=== PATIENT | male | born 1955 | race Hispanic/Latino ===

== ENCOUNTER 2016-12-15 16:43 | Outpatient (CLI) | payer BC ==
[2016-12-15 20:09] LABS: Anion Gap 12 mmol/L (10-20); BUN (Urea Nitrogen) 14 mg/dL (8.4-25.7); Calc. Creatinine Clearance 0 mL/min (70-130); Calcium 9.6 mg/dL (7.8-10.44); Carbon Dioxide 27 mmol/L (22-29); Chloride 105 mmol/L (98-107); Estimated GFR-MDRD Greater than 90
[2016-12-15 20:10] LABS: Hematocrit 37.6 % (42.0-52.0); Mean Platelet Volume 10.7 fL (7.4-10.4); Red Blood Cell (RBC) Count 4.01 mill/uL (4.70-6.10); White Blood Cell (WBC) Count 5.6 thou/uL (4.8-10.8)
[2016-12-15 20:13] LABS: PTT 32.2 SEC (22.9-36.1); Prothrombin Time 13.3 SEC (12.0-14.7)
== END 2016-12-15 16:44 | disposition home or self-care (01) ==
LOC: LABBT 16:43
PROVIDERS: ATTEND Urology
DX: Z01.818 Encounter for other preprocedural examination (principal); N28.9 Disorder of kidney and ureter, unspecified; Z87.440 Personal history of urinary (tract) infections
CPT/HCPCS: 80048; 81001; 85027; 85610; 85730; 87086; 88121; G0103

== ENCOUNTER 2016-12-24 06:18 | Day surgery (SDC) | payer BC ==
[2016-12-15 16:50] VITALS: BMI 29.3
[2016-12-24] MEDS ORDERED: Iothalamate Meglumine 60% 50 ML VIAL FS ONE (07:16)
[2016-12-24] MEDS ORDERED: Levofloxacin 500 mg/D5W 100 ml Premix Bag ONE (07:22)
[2016-12-24] MEDS ORDERED: cefTRIAXone\\ROCEPHIN 2 GM in Sodium Chloride 0.9% 100 ML IVPB SCH (07:30)
[2016-12-24] MEDS ORDERED: Midazolam HCl 2 mg/2 ml Vial ONE (07:57)
[2016-12-24] MEDS ORDERED: Fentanyl 100 MCG/2 ML VIAL ONE ×2 (07:57→09:01)
[2016-12-24] MEDS ORDERED: Promethazine HCl 25 MG/ML VIAL ONE (09:01)
[2016-12-24] MEDS ORDERED: Glycopyrrolate 0.2 MG/ML 5 ML SYRINGE ONE (09:14)
[2016-12-24] MEDS ORDERED: Ondansetron HCl/PF 4 MG/2 ML Vial ONE (09:14)
[2016-12-24] MEDS ORDERED: Propofol 200 MG/20 ML VIAL ONE (09:14)
[2016-12-24] MEDS ORDERED: PHENYLEPHRINE-NS 100 MCG/ML 10 ML SYRINGE ONE (09:14)
[2016-12-24] MEDS ORDERED: ePHEDrine/0.9% NaCl/PF SYRINGE 50 mg/10 ml ONE (09:14)
[2016-12-24] MEDS ORDERED: Lidocaine 1% PF 5 ML VIAL ONE (09:14)
[2016-12-24] MEDS ORDERED: Phenazopyridine HCl 97.5 MG TABLET ONE (10:08)
--- NOTE | 2016-12-24 10:21 | RAD ---
RETROGRADE URETEROGRAM INTRAOPERATIVE FLUOROSCOPY: History: Ureteral mass. FINDINGS\E\IMPRESSION: Intraoperative fluoroscopy was provided for retrograde study as performed by Dr. Gibson. Multip le images show contrast opacification of a mildly distended right renal collecting system and ureter . No focal filling defects are reliably demonstrated. POS: SO
--- NOTE | 2016-12-24 11:04 | OP ---
DATE OF PROCEDURE: 12/24/2016 PREOPERATIVE DIAGNOSES: 1. A 61-year-old male with history of prostatitis. 2. Rule out right ureteral mass. 3. History of hemorrhagic cystitis/prostatitis. POSTOPERATIVE DIAGNOSES: 1. A 61-year-old male with history of prostatitis. 2. Rule out right ureteral mass. 3. History of hemorrhagic cystitis/prostatitis. PROCEDURES: Cystoscopy, right retrograde pyelogram, meatal dilatation with Doyle sounds. SURGEON: Ruthy Gibson D.O. ANESTHESIA: General. SPECIMEN: None. INTRAOPERATIVE FINDINGS: 1. Mild meatal stenosis, caliber approximately 18 Cymro. 2. Wide caliber nonobstructing bulbar stricture, caliber, approximately 18-20 Cymro. 3. Bilobar hyperplasia moderately obstructing with no evidence of intravesical median lobe. 4. No evidence of bladder mass. 5. UO is in normal orthotopic position. 6. Right Hutch periureteral diverticulum with no evidence of diverticular mass. 7. Retrograde pyelogram demonstrating focal ectasia, however, nonobstructing with prompt excretion of contrast. 8. Recent PSA unremarkable 1.22. 9. Prior cytology FISH voided negative. INDICATIONS FOR THE PROCEDURE AND HISTORY: Mr. Vo is a 61-year-old male self-referred for evaluation of history of UTI. Patient was admitted, seen by Urology loans consultant, diagnosed with hemorrhagic cystitis, prostatitis. The patient had symptomatic prostatitis. He does have exacerbation of urinary frequency and urgency as he tends to binge drink 12 packs of beer on weekends. Denied history of urinary retention. I did review his chart demonstrating some prominence of the right distal ureter in the prior imaging. Repeat cystoscopy demonstrated possible mucosal prominence of the distal ureter, advised regarding ureteroscopy, rule out ureteral mass. A voided FISH cytology was obtained which demonstrated no evidence of abnormality, recent PSA is 1.22 with unremarkable GINI, urine culture negative. The patient and family were advised regarding risks and complications and indications including, but not limited to , bleeding, pain, infection, sepsis, stricture formation, injury to adjacent organs such as urethra, bladder, ureter reviewed. All questions were answered to their satisfaction, they desired to proceed. DESCRIPTION OF THE PROCEDURE: After an informed consent is signed, the patient is taken to the operating room, placed in a dorsal lithotomy position with the genital area prepped and draped in the usual surgical sterile fashion. A 21- Cymro cystoscope was attempted to be passed; however, there still was some resistance at the meatus. Therefore, we used Frederick sounds to dilate the meatus uneventfully from 18 Cymro to 26 Cymro with ease. We subsequently passed a cystoscope which demonstrated some evidence of urethral mucosal fibrosis. However, no obstructing stricture was appreciated in the penile urethra. At the level of the bulbar urethra, was an annular stricture and nonobstructing wide caliber. I was able to negotiate a 21-Cymro cystoscope without difficulty proximal to this. We surveyed the prostatic urethra demonstrated bilobar coapting lateral lobes moderately obstructing with no evidence of intravesical median lobe. The bladder was entered without difficulty. There was no evidence of bladder mass. There was bilateral orthotopic position of the ureters, clear efflux of urine was noted bilaterally. Inspection of the bladder with a 30 and a 70-degree lens demonstrated the ureteral mass seen on CT scan is consistent with a right periureteral, Hutch diverticulum. This had a wide mouth approximately 20 Cymro. I was able to pass my scope into the diverticulum without difficulty with no evidence of diverticular lesion or stone. The hiatus of the intramural ureter can be seen in the Hutch diverticulum. The open-ended catheter 5 Cymro was intubated with a 1:1 diluted contrast opacifying the right ureter with no evidence of filling defect. There is some focal ectasia proximal to the Hutch diverticulum; however, this is nonobstructing with no evidence of filling defect or hydronephrosis. Prompt excretion of contrast was noted bilaterally. On fluoroscopy, some of the contrast effluxing did traverse the Hutch diverticulum from the intravesical component, the picture is somewhat vague; however, endoscopically, there is a Hutch diverticulum with no lesion, no filling defect appreciated. As there was no concern about a ureteral mass, we surveyed the bladder again which demonstrated no lesions. After the scope was removed, I was able to pass a 20 Cymro catheter in and out without any difficulty. Therefore, a Tobias catheter was not left in situ nor the urethral stricture nonobstructing treated at this time. The patient will follow up with me in few weeks to reassess his voiding parameters. I will initiate Flomax 0.4 mg one p.o. daily and will monitor his voiding symptoms. Options of TURP will be discussed with patient at a later date. If TURP is planned, may need his bulbar urethral stricture treated to accommodate resectoscope. Patient discharged with ciprofloxacin for a course of 3 days, AZO over the counter, Flomax prescription provided 0.4 mg one p.o. day #3 with 3 refills. The patient will follow up in the next month for postop. MTDD
== END 2016-12-24 11:50 | disposition home or self-care (01) ==
LOC: SDC 06:18
PROVIDERS: ATTEND Urology
PROC: 0T7D8DZ Dilation of Urethra with Intraluminal Device, Via Natural or Artificial Opening Endoscopic (ICD-10-PCS; principal; 2016-12-24)
DX: N41.8 Other inflammatory diseases of prostate (principal); N36.8 Other specified disorders of urethra; I77.811 Abdominal aortic ectasia; E78.00 Pure hypercholesterolemia, unspecified; K21.9 Gastro-esophageal reflux disease without esophagitis; E11.9 Type 2 diabetes mellitus without complications; I25.10 Atherosclerotic heart disease of native coronary artery without angina pectoris; Z88.8 Allergy status to other drugs, medicaments and biological substances; Z79.82 Long term (current) use of aspirin; Z79.84 Long term (current) use of oral hypoglycemic drugs; Z79.899 Other long term (current) drug therapy; Z90.49 Acquired absence of other specified parts of digestive tract; Z95.5 Presence of coronary angioplasty implant and graft; Z87.440 Personal history of urinary (tract) infections; Z83.3 Family history of diabetes mellitus; Z82.49 Family history of ischemic heart disease and other diseases of the circulatory system; Z80.9 Family history of malignant neoplasm, unspecified; Z82.3 Family history of stroke
CPT/HCPCS: 74420; C1758; C1769; J0696; J1956; J2001; J2250; J2405; J2550; J2704; J3010; J7050; Q9961

== ENCOUNTER 2017-02-25 09:14 | Outpatient (CLI) | payer BC ==
[2017-02-25 11:45] LABS: Mean Platelet Volume 10.8 fL (7.4-10.4); Red Blood Cell (RBC) Count 4.34 mill/uL (4.70-6.10); White Blood Cell (WBC) Count 5.6 thou/uL (4.8-10.8)
[2017-02-25 12:03] LABS: Anion Gap 11 mmol/L (10-20); BUN (Urea Nitrogen) 11 mg/dL (8.4-25.7); Calc. Creatinine Clearance 0 mL/min (70-130); Calcium 9.4 mg/dL (7.8-10.44); Carbon Dioxide 23 mmol/L (23-31); Chloride 107 mmol/L (98-107); Estimated GFR-MDRD Greater than 90
== END 2017-02-25 09:15 | disposition home or self-care (01) ==
LOC: LABBT 09:14
PROVIDERS: ATTEND Neurological Surgery
DX: Z01.818 Encounter for other preprocedural examination (principal); M54.16 Radiculopathy, lumbar region
CPT/HCPCS: 80048; 85027; 93005; 93010

== ENCOUNTER 2017-03-06 06:23 | Day surgery (SDC) | payer BC ==
[2017-02-25 09:32] VITALS: BMI 27.7
--- NOTE | 2017-03-05 15:39 | HP ---
HISTORY OF PRESENT ILLNESS: Mr. Vo is referred to us by Dr. Jaffe for evaluation of right-sided L5 radiculopathy that has been treated well with epidural steroid injections that only short lived. MRI from [facility] reveals severe foraminal stenosis at L5 to the left that would fit his sympt oms. PAST MEDICAL HISTORY: Hyperlipidemia, hypertension, reflux, diabetes, coronary arterial disease, sma ll-intestinal tumor, and bowel obstruction. ALLERGIES: LISINOPRIL and LOSARTAN. PAST SURGICAL HISTORY: Bowel resection, cholecystectomy, and cardiac stents. PHYSICAL EXAMINATION: Patient is alert and oriented x3. Gait is antalgic. Lower extremity motor ex am is normal. ASSESSMENT: Lumbar radiculopathy. PLAN: Dr. Klein met with the patient, reviewed imaging, ultimately advocated for left L5 facetectomy . He explained to the patient the risks, benefits, and alternatives to the procedure. The patient e xpressed understanding and would like to move forward with surgery as discussed. I do believe the pa tient is mentally competent and capable of making medical decisions for himself. We will move forwar d with surgery as planned. This is Darren Mcgovern PA-C, dictating for Dr. Klein.
[2017-03-06] MEDS ORDERED: CEFAZOLIN/Water 2 GM/20 ML SYRINGE ONE ×2 (07:12→13:47)
[2017-03-06] MEDS ORDERED: Scopolamine 1.5 mg/72 hour Patch ONE (07:49)
[2017-03-06] MEDS ORDERED: Morphine 4 MG/ML VIAL ONE (07:52)
[2017-03-06] MEDS ORDERED: Bupivacaine/Epinephrine 0.25% 30 ML VIAL ONE ×2 (08:27→10:13)
[2017-03-06] MEDS ORDERED: Thrombin 5000 UNITS/5 ML VIAL ONE (08:27)
[2017-03-06] MEDS ORDERED: Midazolam HCl 2 mg/2 ml Vial ONE (09:08)
[2017-03-06] MEDS ORDERED: Fentanyl 100 MCG/2 ML VIAL ONE ×2 (09:08→11:07)
[2017-03-06] MEDS ORDERED: Promethazine HCl 25 MG/ML VIAL ONE (09:08)
[2017-03-06] MEDS ORDERED: HYDROmorphone 0.5 MG/0.5 ML SYRINGE ONE (09:08)
--- NOTE | 2017-03-06 10:31 | OP ---
DATE OF PROCEDURE: 03/06/2017 SURGEON: Harvey Klein M.D. HIGH LIFT OPERATOR: Darren Mcgovern PA-C INDICATION: Pain. DIAGNOSIS: Lumbar radiculopathy. PROCEDURE: Left L5 facetectomy, foraminotomy. ANESTHESIA: General. TECHNIQUE: The patient was brought into the operating room and placed under general anesthesia. He was flipped from a supine to a prone position on the operating room table. A linear incision was kati nned over the L5 segment on the left. After prepping and draping and after an appropriate operative pause, the incision was created. The soft tissues were swept away from midline on the left. Self-re taining retractors placed in the wound for optimal exposure. After confirming the appropriate level with C-arm fluoroscopy, a high-speed cutting drill bit as well as 2, 3 and 4 mm Kerrisons were used t o perform a laminectomy and facetectomy on the left side. The L5 pedicle and S1 pedicles were identi fied on the left. The exiting L5 nerve root was identified on the left. A generous foraminotomy was performed until there was complete unroofing of the left L5 pedicle. There was a small synovial cys t present within the foramen which was also removed. After complete decompression, the wound was irr igated. Hemostasis was maintained throughout. The wound was then closed in anatomic layers and a pr essure dressing was applied. There were no known procedural complications.
[2017-03-06] MEDS ORDERED: Tamsulosin HCl 0.4 MG CAP ONE (10:59)
[2017-03-06] MEDS ORDERED: HYDROcodone/Acetaminophen 5/325 mg Tablet ONE (12:44)
[2017-03-06] MEDS ORDERED: Calcium Chloride 1 GM/10 ML Abboject SYRINGE ONE (15:01)
[2017-03-06] MEDS ORDERED: Ondansetron HCl/PF 4 MG/2 ML Vial ONE (15:01)
[2017-03-06] MEDS ORDERED: Glycopyrrolate 0.2 MG/ML 5 ML SYRINGE ONE (15:01)
[2017-03-06] MEDS ORDERED: ePHEDrine/0.9% NaCl/PF SYRINGE 50 mg/10 ml ONE (15:01)
[2017-03-06] MEDS ORDERED: Propofol 200 MG/20 ML VIAL ONE (15:01)
[2017-03-06] MEDS ORDERED: Lidocaine 1% PF 5 ML VIAL ONE (15:01)
[2017-03-06] MEDS ORDERED: PHENYLEPHRINE-NS 100 MCG/ML 10 ML SYRINGE ONE (15:01)
[2017-03-06] MEDS ORDERED: Ketorolac Tromethamine 30 MG/ML VIAL ONE (15:01)
[2017-03-06] MEDS ORDERED: Dexamethasone 20 MG/5 ML VIAL ONE (15:01)
== END 2017-03-06 14:25 ==
LOC: SDC 06:23
PROVIDERS: ATTEND Neurological Surgery
PROC: 01NB0ZZ Release Lumbar Nerve, Open Approach (ICD-10-PCS; principal; 2017-03-06)
DX: M54.16 Radiculopathy, lumbar region (principal); E78.5 Hyperlipidemia, unspecified; I10 Essential (primary) hypertension; K21.9 Gastro-esophageal reflux disease without esophagitis; E11.9 Type 2 diabetes mellitus without complications; I25.10 Atherosclerotic heart disease of native coronary artery without angina pectoris; Z79.82 Long term (current) use of aspirin; Z79.84 Long term (current) use of oral hypoglycemic drugs; Z79.02 Long term (current) use of antithrombotics/antiplatelets; Z79.899 Other long term (current) drug therapy; Z88.8 Allergy status to other drugs, medicaments and biological substances; Z95.818 Presence of other cardiac implants and grafts; Z90.49 Acquired absence of other specified parts of digestive tract; Z98.890 Other specified postprocedural states
CPT/HCPCS: 76000; 96374; J1100; J1170; J1885; J2001; J2250; J2270; J2405; J2550; J2704; J3010

== ENCOUNTER 2018-01-04 13:29 | Outpatient (CLI) | payer BC ==
--- NOTE | 2018-01-04 15:43 | ULT ---
RENAL ULTRASOUND: HISTORY: Renal cyst. FINDINGS: Multiple longitudinal and transverse images of the kidneys and urinary bladder were obtained using a Multihertz curvilinear transducer. Real-time color flow images were used to evaluate the kidneys and bladder. Images demonstrate both kidneys to be of normal contour, axis, and size with the right kidney measuri ng 11.7 and the left kidney 12.0 cm from [id number]. There is a small cyst in the upper pole of th e left kidney measuring 3.0 x 1.9 x 2.3 cm. There is also an approximately 9 x 6 x 8 mm area of calcification in the upper pool of the left kidne y possibly representing a left renal calculus. No evidence of hydroureteral nephrosis seen. No evid ence of obstructing calculi seen. The urinary bladder is unremarkable with no evidence of masses. The bladder has 3D measurements of 7 .6 x 6.9 x 5.7 cm giving a 3D volume of 156 mL. IMPRESSION: Small upper pole left renal area of calcification and upper pole cyst of the left kidney. POS: SO
== END 2018-01-04 13:30 | disposition home or self-care (01) ==
LOC: BICULT 13:29
PROVIDERS: ATTEND Urology
DX: N28.1 Cyst of kidney, acquired (principal)
CPT/HCPCS: 76770

== ENCOUNTER 2018-01-20 12:35 | Outpatient (CLI) | payer BC ==
--- NOTE | 2018-01-20 14:48 | CT ---
CT OF THE ABDOMEN AND PELVIS WITHOUT IV CONTRAST: Indication: History of renal calculus. FINDINGS: There is a 2.2 cm exophytic cyst involving the superior pole of the left kidney. No definite ureteral calculus or hydronephrosis is noted. There is a suspected diverticulum involving the distal right ur eter on Image 75 of Series 2 measuring 1.7 cm. This is better seen on a CT examination dated 12-10-16. This appears similar to the comparison study. There is a mild amount of retained stool within the colon. There is a normal appendix in the right lo wer quadrant. Small bowel is of normal caliber. There is calcified granuloma in the liver and spleen. The gallbladder is surgically absent. There are fat containing inguinal hernias bilaterally. There is scattered degenerative and osteoarthritic deal ge. No definite acute osseous abnormality is evident. IMPRESSION: 1. No renal or ureteral calculus. 2. No hydronephrosis seen. 3. Stable left renal cysts. 4. Findings of prior granulomatous disease. 5. Mild amount of retained stool within the colon. 6. Stable diverticulum involving the distal right ureter. POS: [facility]
== END 2018-01-20 12:36 | disposition home or self-care (01) ==
LOC: CT 12:35
PROVIDERS: ATTEND Urology
DX: N20.0 Calculus of kidney (principal); N28.1 Cyst of kidney, acquired; N28.89 Other specified disorders of kidney and ureter; K59.00 Constipation, unspecified; L92.9 Granulomatous disorder of the skin and subcutaneous tissue, unspecified
CPT/HCPCS: 74176; 80048; 81001; 85027; 85610; 85730; 86850; 86900; 86901; 87086; 93005; 93010

== ENCOUNTER 2018-02-03 06:39 | Observation (INO) | payer BC ==
[2018-02-03] MEDS ORDERED: Levofloxacin 500 mg/D5W 100 ml Premix Bag ONE (07:34)
[2018-02-03] MEDS ORDERED: Piperacillin/Tazobactam 3.375 GM in Sodium Chloride 0.9% 100 ML IVPB SCH (07:45)
[2018-02-03] MEDS ORDERED: Scopolamine 1.5 mg/72 hour Patch ONE (09:12)
[2018-02-03] MEDS ORDERED: Midazolam HCl 2 mg/2 ml Vial ONE (09:14)
[2018-02-03] MEDS ORDERED: Fentanyl 250 MCG/5 ML VIAL ONE (09:30)
[2018-02-03] MEDS ORDERED: Dextrose 5% in Water 1,000 ML IV PRN (11:39)
[2018-02-03] MEDS ORDERED: Dextrose 50% Abboject 50 ML SYRINGE SLOW IVP PRN (11:39)
[2018-02-03] MEDS ORDERED: HYDROcodone/Acetaminophen 5/325 mg Tablet PO PRN ×2 (11:39)
[2018-02-03] MEDS ORDERED: Mag-Al 1200 mg/1200 mg/30 ML UDCUP PO PRN (11:39)
[2018-02-03] MEDS ORDERED: hydrALAZINE 20 MG/ML VIAL SLOW IVP PRN ×2 (11:39)
[2018-02-03] MEDS ORDERED: Zolpidem Tartrate 5 MG TAB PO PRN (11:39)
[2018-02-03] MEDS ORDERED: Ondansetron PF 4 MG/2 ML Vial IVP PRN (11:39)
[2018-02-03] MEDS ORDERED: diphenhydrAMINE 50 MG/ML VIAL IVP PRN (11:39)
[2018-02-03] MEDS ORDERED: Oxybutynin 5 MG TAB PO PRN (11:39)
[2018-02-03] MEDS ORDERED: Baclofen 10 MG TAB PO PRN (11:45)
[2018-02-03] MEDS ORDERED: Acetaminophen 500 MG TAB PO PRN (11:45)
[2018-02-03] MEDS ORDERED: cefTRIAXone\\ROCEPHIN 1 GM in Sodium Chloride 0.9% 100 ML IVPB SCH (12:00)
--- NOTE | 2018-02-03 12:26 | OP ---
DATE OF SERVICE: 02/03/2018 PREOPERATIVE DIAGNOSES: 1. A 63-year-old male with history of BPH. 2. History of prostatitis. 3. History of right periureteral Hutch diverticulum. 4. History of bulbar urethral stricture. POSTOPERATIVE DIAGNOSES: 1. A 63-year-old male with history of BPH. 2. History of prostatitis. 3. History of right periureteral Hutch diverticulum. 4. History of bulbar urethral stricture. PROCEDURE: Cystoscopy, meatal calibration dilatation with Doyle sounds, urethral bulbar stricture dilatation caliber approximately 16-18 Icelandic, transurethral resection of the prostate/transurethral vaporization of the prostate. SURGEON: Ruthy Gibson D.O. ANESTHESIA: General. FLUIDS: 700 mL of LR. ESTIMATED BLOOD LOSS: Less than 50 mL. COMPLICATIONS: None apparent. DISPOSITION: To the recovery room in stable condition. SPECIMEN: Transurethral resection of the prostate. DRAINS: 20-30 mL three-way Tobias catheter on CBI with light output. INDICATIONS FOR THE PROCEDURE AND HISTORY: Mr. Vo is a 63-year-old male self-referred through his daughter due to history of hemorrhagic cystitis, recurrent prostatitis. He was previously seen by [facility] regarding this matter. Previous cystoscopy staging CT demonstrated focal dilatation of the right distal ureter. Upon subsequent workup, this was found to be a right Hutch diverticulum. He has history of BPH medical therapy with bulbar urethral stricture 16/18 Icelandic which was previously dilated. I did advise the patient regarding DVIU urethral stricture dilatation, TURP due to history of prostatitis. He has undergone cardiac clearance and presents today for the above procedure. Risks and complications including, but not limited to, bleeding, pain, infection, injury to adjacent organs, bladder neck contracture, recurrent nature of stricture disease, clot retention, incontinence , PE, DVT, MT, CVA, perioperative morbidity and mortality. All questions answered to his satisfaction and he desired to proceed. DESCRIPTION OF THE PROCEDURE: After an informed consent is signed, the patient is taken to the operating room, placed in a dorsal lithotomy position with the genital area prepped and draped in the usual surgical sterile fashion. A 21- Icelandic cystoscope was utilized to stage his urethra. Again noted is a bulbar stricture approximately 16 Icelandic caliber. I was able to pass this atraumatically. Prostatic urethra demonstrated bilobar hyperplasia with moderate obstruction. The bladder was entered which demonstrated no evidence of bladder tumors, stones or lesions of concern. The ureteral orifices are well away from the bladder neck, again noted is a small right periureteral Hutch diverticulum. There is no evidence of stone or mass within the diverticulum. At this time, I transitioned to an bipolar gyrus loop using 26- Icelandic resectoscope. There was some resistance passing the scope; therefore, I did calibrate his urethral meatus to approximately 18-20 Icelandic subsequently dilated to 32 Icelandic atraumatically. Subsequently, we passed the visual obturator of a 26-Icelandic resectoscope. I was able to bypass the stricture and restaging of the stricture demonstrated a dilated passively nicely. It was a soft stricture. At this time, using gyrus bipolar, we performed transurethral resection of prostate in a classic Jennifer fashion. There is evidence of the prostatic tissue grossly of chronic prostatitis microabscess formation upon resecting especially the left lateral wall. We resected the bilateral obstructing lobes down and there was a wide bladder neck and patency. Subsequently, after all chips were evacuated and to ensure that all chips were evacuated of the Hutch diverticulum as well, I did transition to ACMI vaporization loop. We finished the rest of the prostate resection with vaporization of the prostate. The edges of the TUR were vaporized smoothly. At the end of the procedure, we did spend some time with the vaporization probe obtaining hemostasis. We obtained meticulous hemostasis as the patient has history of coronary artery disease and we will have to restart his Plavix and aspirin in a timely manner. At the end of the procedure, bladder neck and the obstructing adenoma had resolved and good hemostasis was appreciated. I was able to pass a 22-Icelandic three-way Tobias catheter without significant resistance to the level of the bladder and clear output was obtained. A 30 mL insufflated and placed on CBI. It is demonstrating clear output. I will monitor the patient overnight on CBI. If clear, he will be discharged with a Tobias catheter to leg bag tomorrow as he had common stricture dilatation as well. [facility]
[2018-02-03 12:56] LABS: #Eosinphils 0.1 thou/uL (0.0-0.7); #Lymphocytes 0.8 thou/uL (1.20-3.40); #Monocytes 0.2 thou/uL (0.11-0.59); #Neutrophils 9.2 thou/uL (1.40-6.50); %Basophils 0.1 % (0.0-1.0); %Eosinophils 0.5 % (0.0-10.0); %Lymphocytes 7.7 % (21.0-51.0); %Monocytes 1.9 % (0.0-10.0); %Neutrophils 89.8 % (42.0-75.0); Hemoglobin 13.8 g/dL (14.0-18.0); Mean Corpuscular HGB CONC 33.4 g/dL (32.0-36.0); Mean Corpuscular Hemoglobin 31.1 pg (27.0-31.0); Mean Platelet Volume 10.1 fL (7.4-10.4); Platelet Count 144 thou/uL (130-400); RBC Distribution Width 12.1 % (11.5-14.5); Red Blood Cell (RBC) Count 4.43 mill/uL (4.70-6.10); White Blood Cell (WBC) Count 10.3 thou/uL (4.8-10.8)
[2018-02-03 13:17] LABS: Anion Gap 11 mmol/L (10-20); BUN (Urea Nitrogen) 15 mg/dL (8.4-25.7); Calc. Creatinine Clearance 113 mL/min (70-130); Calcium 9.2 mg/dL (7.8-10.44); Carbon Dioxide 29 mmol/L (23-31); Chloride 103 mmol/L (98-107); Estimated GFR-MDRD 90; Glucose 214 mg/dL (80-115); Potassium 4.7 mmol/L (3.5-5.1); Sodium 138 mmol/L (136-145)
[2018-02-03] MEDS: traMADol HCl 50 MG TAB PO PRN ×2 (14:21→22:39)
[2018-02-03] MEDS ORDERED: metFORMIN 500 MG TAB PO SCH (15:00)
[2018-02-03] MEDS ORDERED: PHENYLEPHRINE-NS 100 MCG/ML 10 ML SYRINGE ONE (16:30)
[2018-02-03] MEDS ORDERED: PROPOFOL 200 MG/20 ML VIAL ONE (16:30)
[2018-02-03] MEDS ORDERED: Ondansetron PF 4 MG/2 ML Vial ONE (16:30)
[2018-02-03] MEDS ORDERED: Dexamethasone 20 MG/5 ML VIAL ONE (16:30)
[2018-02-03 17:08] VITALS: BMI 28.4
[2018-02-03] MEDS: Insulin Regular 300 UNITS/3 ML VIAL SC PRN ×2 (17:31→20:51)
[2018-02-03] MEDS: cefTRIAXone\\ROCEPHIN 1 GM in Sodium Chloride 0.9% 100 ML IVPB SCH (17:31)
[2018-02-03] MEDS: metFORMIN 500 MG TAB PO SCH ×2 (17:31→20:48)
[2018-02-03] MEDS: Sodium Chloride 0.9% 1,000 ML IV SCH (18:25)
[2018-02-03] MEDS: Atenolol 50 MG TAB PO SCH (20:47)
[2018-02-03] MEDS: Docusate 100 MG CAP PO SCH (20:47)
[2018-02-03] MEDS: Famotidine/PF 20 mg/2ml Vial SLOW IVP SCH (20:48)
[2018-02-03] MEDS ORDERED: Amitriptyline HCl 25 MG TAB PO SCH (21:00)
[2018-02-03] MEDS ORDERED: Amlodipine 10 MG TAB PO SCH (21:00)
[2018-02-03] MEDS ORDERED: Gabapentin 300 MG CAP PO SCH (21:00)
[2018-02-04] MEDS: Sodium Chloride 0.9% 1,000 ML IV SCH ×3 (05:09→15:18)
[2018-02-04 05:43] LABS: #Lymphocytes 1.8 thou/uL (1.20-3.40); #Monocytes 0.7 thou/uL (0.11-0.59); #Neutrophils 8.6 thou/uL (1.40-6.50); %Eosinophils 0.3 % (0.0-10.0); %Lymphocytes 16.1 % (21.0-51.0); %Monocytes 5.8 % (0.0-10.0); %Neutrophils 77.8 % (42.0-75.0); Hemoglobin 12.9 g/dL (14.0-18.0); Mean Corpuscular HGB CONC 33.5 g/dL (32.0-36.0); Mean Corpuscular Hemoglobin 30.9 pg (27.0-31.0); Mean Corpuscular Volume 92.2 fL (78.0-98.0); Mean Platelet Volume 10.2 fL (7.4-10.4); Platelet Count 155 thou/uL (130-400); RBC Distribution Width 11.9 % (11.5-14.5); Red Blood Cell (RBC) Count 4.18 mill/uL (4.70-6.10); White Blood Cell (WBC) Count 11.1 thou/uL (4.8-10.8)
[2018-02-04 05:55] LABS: Anion Gap 10 mmol/L (10-20); BUN (Urea Nitrogen) 11 mg/dL (8.4-25.7); Calc. Creatinine Clearance 125 mL/min (70-130); Calcium 8.8 mg/dL (7.8-10.44); Carbon Dioxide 29 mmol/L (23-31); Chloride 103 mmol/L (98-107); Estimated GFR-MDRD Greater than 90; Glucose 157 mg/dL (80-115); Potassium 3.9 mmol/L (3.5-5.1); Sodium 138 mmol/L (136-145)
[2018-02-04] MEDS: Insulin Regular 300 UNITS/3 ML VIAL SC PRN ×2 (06:39→11:05)
--- NOTE | 2018-02-04 07:21 | PRG ---
DATE OF SERVICE: 02/04/2018 SUBJECTIVE: The patient is without complaints, denies nausea, vomiting, fever. PHYSICAL EXAMINATION: VITAL SIGNS: Stable. He is afebrile at 98.4, 71, 18, 96, 133/69. His urine output is approximately 2 liters. Per nursing staff overnight, CBI was running at a low rate, with clearing of urine, CBI w as held this morning. ABDOMEN: Soft, nontender, nondistended. GENITOURINARY: Tobias catheter draining transparent red urine. I did flush the CBI, which demonstrat es some hematuria component with some sedimentous debris. After flushing of the CBI, there was clear ing. There were no significant clots are appreciated. EXTREMITIES: No cyanosis, clubbing or edema. PERTINENT LABORATORY DATA: White count 11, hemoglobin 12.9, platelet 155. BMP profile is within nor mal limits. IMPRESSION AND PLAN: Mr. Vo is a 63-year-old male with recurrent prostatitis with history of sheila ign prostatic hyperplasia, urethral stricture, on postop day #1 status post urethral stricture dilata tion, transurethral resection vaporization of the prostate. His CBI was held this morning. He is palacios rgically stable. However, as there is evidence of hematuria component, I will hold his aspirin today . We will monitor his urine output off CBI. If there is clearing noted, we will consider discharge with indwelling Tobias catheter. If he needs persistent observation with CBI, we will observe. The p atient to be out of bed with assist only.
[2018-02-04] MEDS: Atenolol 50 MG TAB PO SCH (08:41)
[2018-02-04] MEDS: Docusate 100 MG CAP PO SCH (08:42)
[2018-02-04] MEDS: Famotidine/PF 20 mg/2ml Vial SLOW IVP SCH (08:42)
[2018-02-04] MEDS ORDERED: Doxazosin 2 MG TAB PO SCH (09:00)
[2018-02-04] MEDS ORDERED: Aspirin 325 MG TAB PO SCH (09:00)
[2018-02-04] MEDS ORDERED: Multivitamin W/ Minerals 1 TAB PO SCH (09:00)
[2018-02-04] MEDS ORDERED: Atorvastatin Calcium 40 MG TAB PO SCH (09:00)
[2018-02-04] MEDS ORDERED: Spironolactone 25 MG TAB PO SCH (09:00)
[2018-02-04] MEDS: metFORMIN 500 MG TAB PO SCH ×2 (13:00→16:53)
[2018-02-04 15:58] VITALS: BP 132/74; TEMP 98.3
[2018-02-04] MEDS: cefTRIAXone\\ROCEPHIN 1 GM in Sodium Chloride 0.9% 100 ML IVPB SCH (16:54)
--- NOTE | 2018-02-04 23:07 | DIS ---
DATE OF ADMISSION: 02/03/2018 DATE OF DISCHARGE: 02/04/2018 ADMITTING DIAGNOSES: History of recurrent prostatitis, urinary tract infection , BPH, urethral stricture. DISCHARGE DIAGNOSES: History of recurrent prostatitis, urinary tract infection , BPH, urethral stricture. PROCEDURE: Cystoscopy, urethral dilatation, transurethral resection of prostate , vaporization of prostate. CONDITION: Stable. DISPOSITION: To home with excellent self-care and family support. followup appointment next Thursday 8:30 a.m., catheter removal voiding trial. The patient may resume home meds. He has been cleared by Cardiology to hold Plavix per my discretion. His baby aspirin was held periprocedural. He is instructed to restart his baby aspirin if his urine output remains clear in the next 24-48 hours and informed to call if any significant issues. BRIEF HOSPITAL COURSE: Mr. Vo is a 64-year-old male with history of chronic prostatitis, UTI, BPH, urethral stricture. He presented for cystoscopy , TURP of the prostate. He did well postop. His CBI was held this morning with a transparent red urine. However, there was clearing of the urine with CBI flushing. Therefore, we did monitor the patient off his aspirin therapy, and his urine output throughout the day has been relatively clear, elenita pink tinged. He did have episode of bloody discharge when he was trying to have a bowel movement with straining. Subsequent urine output has been clear. He has minimal discharge of blood-tinged at the meatus. His labs and hemodynamics stable. He has had minimal discomfort on tramadol. DISCHARGE MEDICATIONS: Include continuing his home medication, he will hold his Plavix until followup appointment. Baby aspirin may be restarted in the next 24-48 hours if urine output is clear. DISCHARGE MEDICATIONS: ciprofloxacin 500 mg 1 p.o. b.i.d. x7 days, Colace 100 mg 1 p.o. b.i.d. DISCHARGE INSTRUCTION: Instructions regarding no heavy lifting, strenuous activity, straddling activity advised. Follow up next Thursday for catheter removal. [facility]
== END 2018-02-04 17:25 | disposition home or self-care (01) ==
LOC: SDC 06:39 → SURG A 11:39
PROVIDERS: ADMIT Urology; ATTEND Urology
PROC: 0VT08ZZ Resection of Prostate, Via Natural or Artificial Opening Endoscopic (ICD-10-PCS; principal; 2018-02-04)
PROC: 0T7D8ZZ Dilation of Urethra, Via Natural or Artificial Opening Endoscopic (ICD-10-PCS; 2018-02-04)
DX: N40.1 Benign prostatic hyperplasia with lower urinary tract symptoms (principal); N39.41 Urge incontinence; N35.912 Unspecified bulbous urethral stricture, male; Q64.6 Congenital diverticulum of bladder; E78.00 Pure hypercholesterolemia, unspecified; I10 Essential (primary) hypertension; K21.9 Gastro-esophageal reflux disease without esophagitis; E11.9 Type 2 diabetes mellitus without complications; I25.10 Atherosclerotic heart disease of native coronary artery without angina pectoris; M48.07 Spinal stenosis, lumbosacral region; Z87.440 Personal history of urinary (tract) infections; Z79.02 Long term (current) use of antithrombotics/antiplatelets; Z79.82 Long term (current) use of aspirin; Z79.84 Long term (current) use of oral hypoglycemic drugs; Z79.899 Other long term (current) drug therapy; Z88.8 Allergy status to other drugs, medicaments and biological substances
CPT/HCPCS: 36415; 36416; 80048; 85025; 86850; 86900; 86901; 88305; 96361; 96365; 96375; 96376; G0378; J0696; J1100; J1815; J1956; J2250; J2405; J2543; J2704; J3010; J7050; S0028

== ENCOUNTER 2018-02-17 14:00 | Outpatient (CLI) | payer BC ==
--- NOTE | 2018-02-17 15:13 | RAD ---
LUMBAR SPINE 4 VIEW SERIES: Date: 02/17/18 INDICATION: Radiculopathy, post laminectomy syndrome, with spondylolisthesis. FINDINGS: There is levocurvature centered at the lower lumbar spine. Grade I spondylolisthesis at L5-S1 is pres ent and there is a moderate degree of retrolisthesis at L2-3. Multilevel moderate end plate degenerat ramesh change with disc space narrowing and marginal osteophyte formation is seen. There is multilevel d egenerative facet sclerosis. IMPRESSION: Multilevel degenerative change of lumbar spine. POS: SO
== END 2018-02-17 14:01 | disposition home or self-care (01) ==
LOC: BICRAD 14:00
PROVIDERS: ATTEND Anesthesiology
DX: M54.17 Radiculopathy, lumbosacral region (principal); M96.1 Postlaminectomy syndrome, not elsewhere classified; M43.10 Spondylolisthesis, site unspecified; M47.816 Spondylosis without myelopathy or radiculopathy, lumbar region
CPT/HCPCS: 72110

== ENCOUNTER 2018-02-28 23:36 | Observation (INO) | payer BC ==
[2018-03-01 00:59] LABS: Clarity Turbid (Clear); Specific Gravity, Urine 1.025 (1.002-1.036)
[2018-03-01 01:00] LABS: Leukocyte Unable to Interpret (Negative); Nitrite Unable to Interpret (Negative); Protein, Urine (Dipstick) > or equal to 300 mg/dL (Neg-Trace); pH, Urine 7.8 (5.0-9.0)
[2018-03-01 01:01] LABS: Bacteria/HPF Rare-Few HPF (None Seen); Bilirubin Unable to Interpret (Negative); Blood, Urine Unable to Interpret (Negative); Glucose, Urine (Dipstick) Unable to Interpret mg/dL (Negative); RBC/HPF GREATER THAN 50-TNTC HPF (0-3); Squamous Epithelial None Seen HPF (0-3); Urobilinogen UNABLE TO INTERPRET mg/dL (0.2-1.0)
[2018-03-01 01:02] LABS: #Eosinphils 0.1 thou/uL (0.0-0.7); #Lymphocytes 1.8 thou/uL (1.20-3.40); #Monocytes 0.7 thou/uL (0.11-0.59); #Neutrophils 9.4 thou/uL (1.40-6.50); %Basophils 0.3 % (0.0-1.0); %Eosinophils 1.2 % (0.0-10.0); %Lymphocytes 15.1 % (21.0-51.0); %Monocytes 5.4 % (0.0-10.0); Hemoglobin 11.9 g/dL (14.0-18.0); Mean Corpuscular HGB CONC 32.4 g/dL (32.0-36.0); Mean Corpuscular Hemoglobin 29.2 pg (27.0-31.0); Mean Platelet Volume 10.5 fL (7.4-10.4); Platelet Count 156 thou/uL (130-400); RBC Distribution Width 11.7 % (11.5-14.5); Red Blood Cell (RBC) Count 4.07 mill/uL (4.70-6.10)
[2018-03-01 01:10] LABS: PTT 30.2 SEC (22.9-36.1)
[2018-03-01 01:24] LABS: ALT (SGPT) 12 U/L (8-55); AST (SGOT) 15 U/L (5-34); Albumin 4.2 g/dL (3.4-4.8); Alkaline Phosphatase 59 U/L (40-150); Anion Gap 14 mmol/L (10-20); BUN (Urea Nitrogen) 15 mg/dL (8.4-25.7); Bilirubin, Total 0.3 mg/dL (0.2-1.2); Calc. Creatinine Clearance 0 mL/min (70-130); Calcium 8.8 mg/dL (7.8-10.44); Carbon Dioxide 24 mmol/L (23-31); Chloride 101 mmol/L (98-107); Estimated GFR-MDRD Greater than 90; Globulin 2.8 g/dL (2.4-3.5); Glucose 173 mg/dL (80-115); Potassium 3.7 mmol/L (3.5-5.1); Sodium 135 mmol/L (136-145)
[2018-03-01] MEDS ORDERED: Ondansetron ODT 4 MG TAB SL PRN (03:54)
[2018-03-01] MEDS ORDERED: Acetaminophen 325 MG TAB PO PRN (03:54)
[2018-03-01] MEDS ORDERED: Sodium Chloride 0.9% 1,000 ML IV SCH (03:54)
[2018-03-01] MEDS ORDERED: Ondansetron PF 4 MG/2 ML Vial IVP PRN (03:54)
[2018-03-01] MEDS ORDERED: Morphine 4 MG/ML VIAL ONE (04:58)
[2018-03-01] MEDS ORDERED: Morphine 4 MG/ML VIAL SLOW IVP SCH (05:00)
[2018-03-01 05:49] VITALS: BMI 28.3
[2018-03-01] MEDS ORDERED: Dextrose 5% in Water 1,000 ML IV PRN (08:18)
[2018-03-01] MEDS ORDERED: traMADol HCl 50 MG TAB PO PRN ×3 (08:18→13:17)
[2018-03-01] MEDS ORDERED: Insulin Regular 300 UNITS/3 ML VIAL SC PRN (08:18)
[2018-03-01] MEDS ORDERED: Dextrose 50% Abboject 50 ML SYRINGE SLOW IVP PRN (08:18)
[2018-03-01 08:58] LABS: Hemoglobin 11.6 g/dL (14.0-18.0); Platelet Count 145 thou/uL (130-400)
[2018-03-01 09:18] LABS: Anion Gap 11 mmol/L (10-20); BUN (Urea Nitrogen) 9 mg/dL (8.4-25.7); Calc. Creatinine Clearance 129 mL/min (70-130); Calcium 8.8 mg/dL (7.8-10.44); Carbon Dioxide 26 mmol/L (23-31); Chloride 105 mmol/L (98-107); Estimated GFR-MDRD Greater than 90; Glucose 183 mg/dL (80-115); Potassium 3.9 mmol/L (3.5-5.1); Sodium 138 mmol/L (136-145)
[2018-03-01] MEDS: cefTRIAXone\\ROCEPHIN 2 GM in Sodium Chloride 0.9% 100 ML IVPB SCH (09:20)
[2018-03-01] MEDS: Atorvastatin Calcium 40 MG TAB PO SCH (09:21)
[2018-03-01] MEDS: Docusate 100 MG CAP PO SCH ×2 (09:21→21:21)
[2018-03-01] MEDS: Spironolactone 25 MG TAB PO SCH (09:21)
[2018-03-01] MEDS: Baclofen 10 MG TAB PO PRN (09:25)
--- NOTE | 2018-03-01 10:44 | PDOC.EVN ---
Event Note - Event Note Event Note: Mr. Vo was discussed and seen with TWILA Munoz. He is s/p recent TURP, and developed hematuria, and urinary retention. Currently he has a murdock in place with clear urine. He does not have any complaints. Physical exam is unremarkable . Continue CBI, and further recommendations per Dr. Gibson.
[2018-03-01] MEDS: metFORMIN 500 MG TAB PO SCH ×3 (11:43→21:21)
[2018-03-01] MEDS: Doxazosin 2 MG TAB PO SCH (11:43)
[2018-03-01] MEDS: Atenolol 50 MG TAB PO SCH ×2 (11:43→21:21)
--- NOTE | 2018-03-01 14:09 | CON ---
DATE OF CONSULTATION: 03/01/2018 INPATIENT PROGRESS CONSULTATION HISTORY OF PRESENT ILLNESS: Mr. oV is a 63-year-old male, who was previously self-referred, as he has a history of hemorrhagic cystitis, bacterial prostatitis. He was previously seen by Dr. Jonas, provided antibiotic therapy. Patient and daughter did not desire to follow up with [facility]. They presented for evaluation of treatment for chronic prostatitis. 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 He underwent cystoscopy, TURP, meatal calibration, urethral bulbar stricture dilatation of a 16 and 18-Emirati caliber stricture on February 03, 2018. I recently saw Mr. Vo in my office, who was voiding clear, satisfied with his urinary caliber and flow with no evidence of gross hematuria. At that time, he was on a baby aspirin and advised to start his Celebrex and Plavix. He did start his Celebrex, a day or two later he subsequently developed hematuria, subsequently developed clot retention and presented to the emergency room early this morning. On arrival, 18-Emirati Tobias catheter was placed by the ER staff, per review of records, approximately 500 mL of gross hematuria obtained due to clot retention. Overnight, an 18-Emirati 3-way Tobias catheter was placed by nursing staff and clots irrigated and subsequently draining red tinged urine on CBI. The patient denies history of dysuria or fever. Currently, resting comfortably. Daughter at bedside. PAST MEDICAL HISTORY: Includes hypercholesteremia, hypertension, GERD, diabetes , coronary artery disease, followed by Dr. Baca. Severe L5-S1 stenosis followed by a pain specialist, Dr. Jaffe. History of bowel obstruction at age 60. SURGICAL HISTORY: Includes cardiac cath with coronary artery stent in January 2014, status post cholecystectomy, bowel resection. He underwent previous cystoscopy, bulbar stricture dilatation in December 2016, back surgery by Dr. Klein in February 2017. Recent cystoscopy, TURP, meatal calibration, urethral bulbar stricture dilatation on February 03, 2018. FAMILY HISTORY: Positive for hypertension, diabetes, and CVA. 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 He is and has children. Excellent family support. ALLERGIES: ALLERGIES TO LISINOPRIL AND LOSARTAN. PHYSICAL EXAMINATION: VITAL SIGNS: His vital signs are stable. He is afebrile, 98, 59, 18, 98, and 177/55. Urine output 500 mL, on CBI. GENERAL: The patient appears to be in no acute distress. HEENT: Unremarkable. HEART: Regular rate. LUNGS: Clear to auscultation. ABDOMEN: Soft, nontender, nondistended. No rigidity. No rebound is appreciated. : Demonstrates 18-Emirati Tobias catheter, which I irrigated myself manually at bedside: Manual irrigation of 3-way Tobias catheter performed, I was able to irrigate approximately 50 to 60 mL of subsequent clots. No further clots were appreciated. CBI started at a low rate demonstrated pink-tinged urine output. patient tolerated the procedure well. EXTREMITIES: No cyanosis, clubbing or edema. LABORATORY DATA: Pertinent labs white count of 12, hemoglobin is 11.9. His last hemoglobin baseline is 12.9. BMP profile was within normal limits. INR is 1.0 , PTT is 30. UA demonstrates red turbid, greater than 300 protein, greater than 50 rbc's, 7 to 10 wbc's, no epithelials, rare bacteria, nitrite and leukocytes were unable to be interpreted. It is unclear to me if the urine culture was sent from the emergency room. will call microbiology and see if specimen is still available for culture. IMPRESSION AND PLAN: 1. Mr. Vo is a 63-year-old male with history of coronary artery disease, diabetes, history of bacterial prostatitis, recurrent, status post transurethral resection of the prostate, urethral stricture dilatation. 2. Presents for gross hematuria with clot retention, currently on CBI. His H/H is stable. He is hemodynamically stable; anticoagulation has been held, will monitor patient on CBI. As the patient will require to go back on his anticoagulation, cystoscopy is advised for diagnostic as well as fulguration of bleed of pertinent areas. The patient and family desire to proceed. We will provide broad-spectrum antibiotics due to history of prostatitis. Continue CBI for now. Job ID: [id number] MTDD
[2018-03-01] MEDS: Amlodipine 10 MG TAB PO SCH (21:21)
[2018-03-01] MEDS: Gabapentin 400 MG CAP PO SCH (21:21)
[2018-03-01] MEDS: Amitriptyline HCl 25 MG TAB PO SCH (21:21)
[2018-03-01] MEDS ORDERED: Melatonin 3 MG TAB PO PRN (22:09)
--- NOTE | 2018-03-02 00:41 | HP ---
PRIMARY CARE PHYSICIAN: Dr. Sultana. CHIEF COMPLAINT: Acute urinary retention and hematuria. HISTORY OF PRESENT ILLNESS: Mr. Vo is a pleasant 63-year-old male with past medical history of hypertension, GERD, diabetes, coronary artery disease, followed by Dr. Baca, severe L5-S1 stenosis, followed by Dr. Jaffe, hypercholesterolemia, and recent TURP procedure 1 month ago. He had presented to [facility] with complaints of lower abdominal suprapubic pain along with urinary retention and passing clots. He states the pain started yesterday prior to coming into the ER; however, the blood in his urine and passing clots have been going on and off since the procedure. He states this had gradually improved up until about 3 days ago on 02/26/2018. He states that at this time, he noticed that the bleeding worsened and shortly he presented with lower pain 02/28/2018. The patient had a Tobias catheter placed, which then was advanced to CBI overnight, he had tolerated this well. Clots draining well, he is now with red-tinged urine in Tobias. He has no further complaints of chest pain, shortness of breath, or abdominal pain. He denies fever or chills at this time. He does have a history of bacterial prostatitis. His primary urologist is Dr. Gibson. She had seen and evaluated the patient earlier this morning and had determined the patient would stand CBI at this time. He will be placed on broad-spectrum antibiotics due to history of bacterial prostatitis and she will proceed with cystoscopy early tomorrow morning for further evaluation of patient's symptoms. At this time, it was determined that the patient would be admitted under observation and for further evaluation of symptoms. PAST MEDICAL HISTORY: Hypertension, hypercholesterolemia, GERD, diabetes mellitus, coronary artery disease, and severe L5-S1 stenosis. PAST SURGICAL HISTORY: Coronary artery stents in 2013, cholecystectomy, bowel resection, previous cystoscopy with TURP on February 03, 2018, and back surgery with Dr. Klein in 2017. FAMILY HISTORY: Positive for hypertension, diabetes, and CVA. SOCIAL HISTORY: He is a nonsmoker. 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 He is with children, he lives with family. He reports drinking socially under 5 drinks two to three times a month. ALLERGIES: LISINOPRIL AND LOSARTAN. REVIEW OF SYSTEMS: CONSTITUTIONAL: Denies fever or chills. Denies any weight loss or weight gain. Denies any lethargy or weakness. EYES: Denies any eye pain, eye redness, discharge, or vision changes. ENT: Denies any sore throat, nosebleed, or trouble swallowing. CARDIOVASCULAR: Denies chest pain or dyspnea on exertion. Denies edema. Denies any palpitations or syncope. RESPIRATORY: Denies cough, shortness of breath, wheezing, or stridor. GASTROINTESTINAL: Denies any abdominal pain, appetite changes, constipation, diarrhea, nausea, or vomiting. GENITOURINARY: Does report some dysuria with intermittent hematuria. Does report some urinary retention. MUSCULOSKELETAL: Denies swelling or weakness. Does report some chronic back pain, however, no changes. SKIN: Denies any skin lesions, bruising, or rashes. NEUROLOGIC: Denies any confusion, dizziness, weakness, or syncope. Denies any headache. PSYCHIATRIC: Denies any suicidal or homicidal ideation. HOME MEDICATIONS: 1. Metformin 500 mg p.o. as directed. 2. Amlodipine 10 mg p.o. at bedtime. 3. Glipizide 10 mg p.o. daily. 4. Nexium 20 mg p.o. at bedtime. 5. Atorvastatin 20 mg p.o. daily. 6. Tramadol 25 to 50 mg p.o. q.i.d. p.r.n. pain. 7. Doxazosin 2 mg p.o. daily. 8. Atenolol 50 mg p.o. b.i.d. 9. Multivitamin one tablet p.o. daily. 10. Amitriptyline 25 mg p.o. at bedtime. 11. Acetaminophen 1000 mg p.o. q.6 hours p.r.n. pain. 12. Gabapentin 1200 mg p.o. at bedtime. 13. Baclofen 20 mg p.o. b.i.d. p.r.n. back spasm. 14. Colace 100 mg p.o. b.i.d. 15. Spironolactone 25 mg p.o. q.a.m. PHYSICAL EXAMINATION: VITAL SIGNS: Blood pressure prior to morning medications 177/75, post medications 126/74; pulse 78; respirations 18; temperature 98.4; and O2 saturation 92% on room air. GENERAL: Alert and oriented x3. No acute distress noted. HEAD: Atraumatic and normocephalic. EYES: Pupils round and reactive to light. Extraocular muscles intact. ENT: Ears, nose, and throat clear. No drainage. Oropharynx clear without erythema. Nasal septum midline. NECK: Supple. No bruit noted. No JVD. CARDIOVASCULAR: Positive S1 and S2. Regular rate and rhythm. No murmur noted. RESPIRATORY: Clear to auscultation bilaterally. No wheezes noted. Chest expansion equal. ABDOMEN: Soft and nontender. Bowel sounds present, obese. NEUROLOGIC: Cranial nerves 2 through 12 intact. Speech intact. Gait is normal. No focal deficits noted. SKIN: Warm, dry, and intact. No lesions. No rashes noted. PSYCHIATRIC: Normal mood and affect. LABORATORY DATA: WBC 12.0, RBC 4.07, hemoglobin 11.9, platelet 156. PT 13, INR 1, PTT 30.2. Sodium 135, potassium 3.7, creatinine 0.78, estimated GFR greater than 90, glucose 173. AST 15 and ALT 12. Urinalysis shows red urine, turbid clarity, greater or equal to 300 protein, rbc present. Toxicology screen unremarkable. ASSESSMENT AND PLAN: 1. Hematuria, urinary retention. Urology services, Dr. Gibson, following. Plan to continue CBI at this time, Tobias catheter in place, scheduled cystoscopy tomorrow morning. Hold anticoagulation at this time. 2. Hypertension. Continue the patient's home medications at this time, currently vital signs stable. 3. Hyperlipidemia. Continue the patient's home medication. 4. Diabetes mellitus, frequent Accu-Cheks, started on insulin sliding scale. Continue glipizide 10 mg p.o. daily and metformin 500 mg. Further adjustments as needed. 5. Deep venous thrombosis prophylaxis. Continue SCDs, hold anticoagulation at this time as patient with active hematuria. The patient currently hemodynamically stable, with a stable hemoglobin. Hold blood products at this time. However, we will plan to transfuse as needed. 6. Gastrointestinal prophylaxis with Pepcid twice daily. Disposition and further medical management pending the patient's progress and further recommendations from Urology Services. Job ID: [id number]
[2018-03-02 05:45] LABS: #Basophils 0.1 thou/uL (0.0-0.2); #Eosinphils 0.2 thou/uL (0.0-0.7); #Lymphocytes 1.7 thou/uL (1.20-3.40); #Monocytes 0.4 thou/uL (0.11-0.59); #Neutrophils 3.4 thou/uL (1.40-6.50); %Basophils 1.3 % (0.0-1.0); %Eosinophils 2.8 % (0.0-10.0); %Lymphocytes 29.9 % (21.0-51.0); %Monocytes 6.8 % (0.0-10.0); %Neutrophils 59.3 % (42.0-75.0); Hemoglobin 11.1 g/dL (14.0-18.0); Mean Corpuscular Volume 91.3 fL (78.0-98.0); Mean Platelet Volume 10.8 fL (7.4-10.4); Platelet Count 140 thou/uL (130-400); RBC Distribution Width 11.8 % (11.5-14.5); Red Blood Cell (RBC) Count 3.59 mill/uL (4.70-6.10); White Blood Cell (WBC) Count 5.7 thou/uL (4.8-10.8)
[2018-03-02] MEDS: Atenolol 50 MG TAB PO SCH ×2 (05:53→20:15)
[2018-03-02 05:58] LABS: Anion Gap 12 mmol/L (10-20); BUN (Urea Nitrogen) 10 mg/dL (8.4-25.7); Calc. Creatinine Clearance 127 mL/min (70-130); Calcium 8.9 mg/dL (7.8-10.44); Carbon Dioxide 25 mmol/L (23-31); Chloride 105 mmol/L (98-107); Estimated GFR-MDRD Greater than 90; Glucose 147 mg/dL (80-115); Potassium 3.9 mmol/L (3.5-5.1); Sodium 138 mmol/L (136-145)
[2018-03-02] MEDS ORDERED: Scopolamine 1.5 mg/72 hour Patch ONE (09:13)
[2018-03-02] MEDS ORDERED: Fentanyl 100 MCG/2 ML VIAL ONE ×2 (09:21→11:16)
[2018-03-02] MEDS ORDERED: Promethazine HCl 25 MG/ML VIAL IM PRN (10:17)
[2018-03-02] MEDS ORDERED: Promethazine HCl 25 MG/ML VIAL SLOW IVP PRN (10:17)
[2018-03-02] MEDS ORDERED: Ondansetron HCl/PF 4 MG/2 ML Vial IVP PRN (10:17)
[2018-03-02] MEDS ORDERED: Promethazine HCl 25 MG/ML VIAL ONE (11:13)
[2018-03-02] MEDS: cefTRIAXone\\ROCEPHIN 2 GM in Sodium Chloride 0.9% 100 ML IVPB SCH (12:53)
[2018-03-02] MEDS: metFORMIN 500 MG TAB PO SCH ×3 (14:35→20:16)
[2018-03-02] MEDS: Docusate 100 MG CAP PO SCH ×3 (14:35→20:16)
[2018-03-02] MEDS: Atorvastatin Calcium 40 MG TAB PO SCH ×2 (14:38→16:19)
[2018-03-02] MEDS: Doxazosin 2 MG TAB PO SCH ×2 (14:39→16:20)
--- NOTE | 2018-03-02 15:04 | PDOC.PN ---
- Subjective Encounter Start Date: 03/02/18 Encounter Start Time: 15:02 Patient lying in bed with family at bedside. He is s/p cystoscopy. He tolerated procedure well. He experienced some post procedural nausea which resolved with phenergen. He denies chest pain, shortness of breath or abdominal pain. Urine culture showing staph aereus and presumably enterococcus with only 10,000-25, 000 quant. He remains on CBI, clear urine noted. Small bleed noted on cystoscopy with successful cautery - Objective Resuscitation Status - Order Detail: 03/01/18 09:05 Resuscitation Status Routine Co-Sign Provider: Resuscitation Status: FULL: Full Resuscitation MAR Reviewed: Yes Vital Signs & Weight: Vital Signs (12 hours) Temp Pulse Resp BP Pulse Ox 03/02/18 07:36 97.7 F 78 18 112/79 97 03/02/18 05:53 79 03/02/18 04:00 97.9 F 79 20 153/80 H 95 Weight Weight 191 lb 9.6 oz I&O: 03/01/18 03/02/18 03/03/18 06:59 06:59 06:59 Intake Total 300 500 Output Total 950 5975 475 Balance -650 -5475 -475 Result Diagrams: 03/02/18 04:07 03/02/18 04:07 Additional Labs: Accuchecks 03/02/18 03/01/18 03/01/18 05:21 21:01 16:32 POC Glucose 154 H 210 H 145 H Radiology Reviewed by me: Yes <Vikram Morales - Last Filed: 03/02/18 15:02> - Objective Resuscitation Status - Order Detail: 03/01/18 09:05 Resuscitation Status Routine Co-Sign Provider: Resuscitation Status: FULL: Full Resuscitation Vital Signs & Weight: Vital Signs (12 hours) Temp Pulse Resp BP BP Pulse Ox 03/02/18 16:00 98.4 F 95 16 124/77 98 03/02/18 07:36 97.7 F 78 18 112/79 97 Weight Weight 191 lb 9.6 oz I&O: 03/01/18 03/02/18 03/03/18 06:59 06:59 06:59 Intake Total 300 500 Output Total 950 5975 900 Balance -650 -5475 -900 Result Diagrams: 03/02/18 04:07 03/02/18 04:07 Additional Labs: Accuchecks 03/02/18 03/02/18 03/01/18 17:19 05:21 21:01 POC Glucose 267 H 154 H 210 H <Fredy Rehman - Last Filed: 03/02/18 19:07> Phys Exam - Physical Examination Constitutional: NAD CBI with urine murdock in place HEENT: PERRLA, sclera anicteric, oral pharynx no lesions Neck: no nodes, no JVD, supple Respiratory: no wheezing, no rales, no rhonchi, clear to auscultation bilateral Cardiovascular: RRR, no significant murmur, no rub Gastrointestinal: soft, non-tender, no distention, positive bowel sounds Musculoskeletal: no edema, pulses present Neurological: non-focal, normal sensation, moves all 4 limbs Lymphatic: no nodes Psychiatric: normal affect, A&O x 3 Skin: no rash, normal turgor, cap refill <2 seconds <Vikram Morales - Last Filed: 03/02/18 15:02> Dx/Plan (1) Prostatitis Code(s): N41.9 - INFLAMMATORY DISEASE OF PROSTATE, UNSPECIFIED Status: Acute (2) Diabetes mellitus Code(s): E11.9 - TYPE 2 DIABETES MELLITUS WITHOUT COMPLICATIONS Status: Chronic (3) HTN (hypertension) Code(s): I10 - ESSENTIAL (PRIMARY) HYPERTENSION Status: Chronic - Plan cont current plan of care, plan discussed w/ family, continue antibiotics, DVT proph w/SCDs * Urology following, continue current plan with CBI and abx at this time * Await urine culture results for further changes of abx * Continue home medications, changes as needed. <Vikram Morales - Last Filed: 03/02/18 15:02> - Plan Patient seen and examined. No new complaints. Agree with the above assessment and plan. <Fredy Rehman - Last Filed: 03/02/18 19:07>
[2018-03-02] MEDS: traMADol HCl 50 MG TAB PO PRN (16:15)
[2018-03-02] MEDS: Spironolactone 25 MG TAB PO SCH (16:18)
[2018-03-02] MEDS ORDERED: Glycopyrrolate 0.2 MG/ML 5 ML SYRINGE ONE (16:49)
[2018-03-02] MEDS ORDERED: Ondansetron PF 4 MG/2 ML Vial ONE (16:49)
[2018-03-02] MEDS ORDERED: Dexamethasone 20 MG/5 ML VIAL ONE (16:49)
[2018-03-02] MEDS ORDERED: PROPOFOL 200 MG/20 ML VIAL ONE (16:49)
--- NOTE | 2018-03-02 18:52 | OP ---
DATE OF PROCEDURE: 03/02/2018 PREOPERATIVE DIAGNOSES: 1. A 63-year-old male with history of chronic prostatitis. 2. Benign prostatic hypertrophy, status post transurethral resection of the prostate. 3. Clot retention. POSTOPERATIVE DIAGNOSES: 1. A 63-year-old male with history of chronic prostatitis. 2. Benign prostatic hypertrophy, status post transurethral resection of the prostate. 3. Clot retention. PROCEDURES PERFORMED: Cystoscopy, fulguration of bleed, evacuation of clots, 20-Hungarian 3-way Tobias catheter replacement, meatal calibration and dilatation with [place] sounds. ANESTHESIA: General. COMPLICATIONS: None apparent. SPECIMEN: None. IV FLUIDS: 500 mL. INTRAOPERATIVE FINDINGS: 1. Discrete area of bleeding from the right apical lateral lobe. 2. Good TUR defect. INDICATIONS FOR THE PROCEDURE AND HISTORY: Mr. Vo is a 63-year-old male with history of chronic anticoagulation on aspirin, Plavix, with history of chronic prostatitis. He previously had acute bacterial prostatitis, urine culture negative, and underwent transurethral resection of prostate approximately one month ago. The patient was admitted over the weekend as he presented with clot retention. He was monitored with CBI with H and H stable. He presents today for cystoscopy, fulguration of bleed. Risks, complications, and indications reviewed including , but not limited to, bleeding, pain, infection, injury to adjacent organs, bladder, urethral injury, stricture formation, possible secondary procedure, and he desired to proceed. DESCRIPTION OF PROCEDURE: After an informed consent was signed, the patient was taken to the operating room, and placed in a dorsal lithotomy position with the genital area prepped and draped in usual surgical sterile fashion. Broad- spectrum antibiotics were provided preoperatively. Bilateral RELL hose and SCDs were placed. A 21-Hungarian cystoscope was utilized for cystoscopy. The anterior urethra was within normal limits. I did not see any recurrence of urethral stricture. The scope was passed without difficulty. The prostatic urethra was staged, which there was some adherent clot in the prostatic fossa, the bladder was grossly unremarkable. As previous, he has a small right lateral Hutch diverticulum. There was no bleeding source from the bladder itself. Using an [employer] evacuator, I did evacuate residual clots, approximately 60 mL to 70 mL of clots were evacuated. Subsequently, we passed a 26-Hungarian resectoscope with a visual obturator. Although he does not have significant meatal stenosis, his meatus would not accommodate a 26-Hungarian resectoscope, therefore using [place] sounds, we calibrated his urethra from 24 to 30. Subsequently, the 26-Hungarian scope was passed without difficulty. The prostatic urethra was staged. The adherent clot from the prostatic urethra was removed, there was a discrete area of bleeding in the right apical lateral lobe. Using a Gyrus bipolar prostate loop, we fulgurated this region with resolution of bleeding. I did spend some time fulgurating his prostatic urethra. He did have sloughing of the mucosa consistent with a recent TURP. There was no other active source appreciated. At the end of the procedure, as previous, a good TUR defect with no other source of bleeding was appreciated. A 20-Hungarian 3-way Tobias catheter was passed without any resistance. A 30 mL of sterile water insufflated and CBI initiated with clear output. We will observe the patient overnight with CBI, we will attempt a voiding trial tomorrow. His urine output remains clear. Job ID: [id number] [facility]OSPITALBlanca
[2018-03-02] MEDS: Amlodipine 10 MG TAB PO SCH (20:15)
[2018-03-02] MEDS: Amitriptyline HCl 25 MG TAB PO SCH (20:17)
[2018-03-02] MEDS: Gabapentin 400 MG CAP PO SCH (20:17)
[2018-03-03 04:29] VITALS: TEMP 97.7
[2018-03-03 05:39] LABS: #Lymphocytes 1.5 thou/uL (1.20-3.40); #Monocytes 0.6 thou/uL (0.11-0.59); #Neutrophils 6.3 thou/uL (1.40-6.50); %Basophils 0.1 % (0.0-1.0); %Eosinophils 0.4 % (0.0-10.0); %Lymphocytes 17.5 % (21.0-51.0); %Monocytes 6.6 % (0.0-10.0); %Neutrophils 75.4 % (42.0-75.0); Hemoglobin 11.8 g/dL (14.0-18.0); Mean Corpuscular HGB CONC 34.5 g/dL (32.0-36.0); Mean Corpuscular Hemoglobin 31.2 pg (27.0-31.0); Mean Corpuscular Volume 90.5 fL (78.0-98.0); Mean Platelet Volume 11.1 fL (7.4-10.4); Platelet Count 159 thou/uL (130-400); RBC Distribution Width 11.7 % (11.5-14.5); Red Blood Cell (RBC) Count 3.76 mill/uL (4.70-6.10); White Blood Cell (WBC) Count 8.4 thou/uL (4.8-10.8)
[2018-03-03 05:50] LABS: Anion Gap 13 mmol/L (10-20); BUN (Urea Nitrogen) 10 mg/dL (8.4-25.7); Calc. Creatinine Clearance 112 mL/min (70-130); Calcium 9.3 mg/dL (7.8-10.44); Carbon Dioxide 28 mmol/L (23-31); Chloride 101 mmol/L (98-107); Estimated GFR-MDRD Greater than 90; Glucose 215 mg/dL (80-115); Potassium 4.3 mmol/L (3.5-5.1); Sodium 138 mmol/L (136-145)
[2018-03-03] MEDS: Docusate 100 MG CAP PO SCH (08:14)
[2018-03-03] MEDS: Atorvastatin Calcium 40 MG TAB PO SCH (08:15)
[2018-03-03] MEDS: Spironolactone 25 MG TAB PO SCH (08:15)
[2018-03-03] MEDS: Atenolol 50 MG TAB PO SCH (08:16)
[2018-03-03] MEDS: cefTRIAXone\\ROCEPHIN 2 GM in Sodium Chloride 0.9% 100 ML IVPB SCH (08:17)
[2018-03-03] MEDS: Doxazosin 2 MG TAB PO SCH (08:18)
[2018-03-03] MEDS: traMADol HCl 50 MG TAB PO PRN (08:24)
[2018-03-03] MEDS: Baclofen 10 MG TAB PO PRN (08:27)
[2018-03-03] MEDS ORDERED: Aspirin 81 mg Enteric Coated Tablet PO SCH (09:00)
--- NOTE | 2018-03-03 09:06 | PRG ---
DATE OF SERVICE: 03/03/2018 SUBJECTIVE: The patient is doing well without complaints. Denies chest pain, shortness of breath, or flank or abdominal pain. OBJECTIVE: VITAL SIGNS: Stable. GENITOURINARY: His urine output is clear yellow. CBI was held for a.m. ABDOMEN: Soft, nontender, and nondistended. Tobias catheter removed, voiding trial initiated. EXTREMITIES: No cyanosis, clubbing or edema. PERTINENT LABORATORY DATA: White count is 8.4, hemoglobin 11.8, and platelet 159. Renal function stable. Creatinine 0.8. Urine culture on arrival demonstrates Staph species, presumptuous Enterococcus. I did talk to Microbiology today. They will release the sensitivity results. IMPRESSION AND PLAN: Mr. Vo is a 63-year-old male with, 1. History of bacterial prostatitis, recurrent prostatitis. 2. Status post transurethral resection of the prostate, last month, presented with clot retention. Postop day #1, cystoscopy, fulguration of bleed, evacuation of clots, meatal calibration/dilatation. His CBI was held this morning with clear urine output. Tobias catheter removed for voiding trial. I will monitor his serial urine output today. We will restart his baby aspirin. Pending clinical course, await sensitivity of urine culture. Possible discharge this afternoon if doing well. Appreciate hospitalist assistance. Job ID: [id number]
[2018-03-03] MEDS: metFORMIN 500 MG TAB PO SCH (11:32)
[2018-03-03] MEDS ORDERED: Acetaminophen 325 MG TAB PO PRN (14:44)
--- NOTE | 2018-03-03 15:30 | PDOC.EVN ---
Event Note - Event Note Event Note: case discussed with eliezer Leong with management
[2018-03-03 16:59] VITALS: BP 138/80
[2018-03-03] MEDS ORDERED: Nitrofurantoin Monohyd/M-Cryst 100 MG CAP PO SCH (21:00)
[2018-03-03] MEDS ORDERED: Doxycycline 100 MG CAP PO SCH (21:00)
--- NOTE | 2018-03-04 00:03 | CON ---
DATE OF CONSULTATION: 03/03/2018 REASON FOR CONSULTATION: Questions regarding the findings in the urine sample cultures. HISTORY OF PRESENT ILLNESS: A 63-year-old, who has a history of hypertension, type 2 diabetes, and lumbosacral spine problems, who has had a recent TURP procedure in January and was admitted with acute urinary obstruction secondary to clot. Clot was removed and the patient has felt marked improvement, and the patient had some cultures submitted from urine and there is a question regarding the results. The catheter was removed for voiding trial and it looks like the voiding trial was successful. Currently, he denies any headaches, visual symptoms, sore throat, odynophagia, or dysphagia. No cough or sputum production. No chest pain. PAST MEDICAL HISTORY: Includes hypertension, hyperlipidemia, GERD, diabetes mellitus type 2, coronary artery disease, and L5-S1 stenosis. PAST SURGICAL HISTORY: Cholecystectomy, bowel resection, cystoscopy with TURP in January, and laminectomy. FAMILY HISTORY: Hypertension and diabetes. SOCIAL HISTORY: Nonsmoker. Works at [employer]. . ALLERGIES: LISINOPRIL AND LOSARTAN. CURRENT MEDICATIONS: 1. Metformin. 2. Norvasc. 3. Glipizide. 4. Tramadol. 5. Doxazosin. 6. Atenolol. 7. Gabapentin. 8. Baclofen. 9. Colace. 10. He was given ceftriaxone and doxycycline. PHYSICAL EXAMINATION: VITAL SIGNS: Normal. LUNGS: The exam showed clear lungs. HEART: S1 and S2. Regular rate. ABDOMEN: Soft. EXTREMITIES: No edema. Moves extremities equally. NEUROLOGIC: Nonfocal. LABORATORY DATA: White cell count 12,000, down to 8.4; hemoglobin 11.8, and platelets 159. Sodium 138, creatinine 0.84, bilirubin 0.3, AST 15, ALT 12, alkaline phosphatase 59, and albumin 4.2. Culture showed MRSA and Enterococcus faecalis in the sample from urine in Tobias catheter, 10,000 to 25,000 for the Enterococcus faecalis and 25,000 to 50,000 for the MRSA. Urinalysis showed 7 to 10 wbc's. ASSESSMENT AND PLAN: Recent transurethral resection of the prostate, admitted with clot obstructing urinary outflow tract, managed with washout, now with successful voiding trial. The organisms isolated reflect colonization with the Tobias catheter, and I would advise discontinuation of antimicrobial therapy and consider discharge planning. Follow up in the outpatient setting. Job ID: [id number]
== END 2018-03-03 17:20 | disposition home or self-care (01) ==
LOC: ERS 23:36 → T4-A 03-01 01:30
PROVIDERS: ADMIT Internal Medicine; ATTEND Urology
PROC: 0TCD8ZZ Extirpation of Matter from Urethra, Via Natural or Artificial Opening Endoscopic (ICD-10-PCS; principal; 2018-03-02)
DX: N32.89 Other specified disorders of bladder (principal); N41.1 Chronic prostatitis; I10 Essential (primary) hypertension; I25.10 Atherosclerotic heart disease of native coronary artery without angina pectoris; E11.9 Type 2 diabetes mellitus without complications; E78.00 Pure hypercholesterolemia, unspecified; K21.9 Gastro-esophageal reflux disease without esophagitis; M48.07 Spinal stenosis, lumbosacral region; Z90.49 Acquired absence of other specified parts of digestive tract; Z95.5 Presence of coronary angioplasty implant and graft; Z88.8 Allergy status to other drugs, medicaments and biological substances; Z79.4 Long term (current) use of insulin; Z79.2 Long term (current) use of antibiotics; Z79.82 Long term (current) use of aspirin; Z79.899 Other long term (current) drug therapy; Z98.890 Other specified postprocedural states
CPT/HCPCS: 36415; 36416; 51702; 51703; 51798; 80048; 80053; 80306; 81003; 81015; 85025; 85610; 85730; 86850; 86900; 86901; 87077; 87086; 87186; 96360; 96361; 96365; 96366; 96375; G0378; J0696; J1100; J2270; J2405; J2550; J2704; J3010; J7050

== ENCOUNTER 2018-09-03 14:12 | Outpatient (CLI) | payer BC ==
--- NOTE | 2018-09-03 16:26 | MRI ---
Thoracic spine MRI without contrast: 09/03/2018 COMPARISON: None HISTORY: Myelopathy TECHNIQUE: Multiplanar multisequence MR imaging of the thoracic spine obtained without contrast FINDINGS: There is prominent degenerative change in the cervical spine, better assessed on cervical s pine MRI also performed 09/03/2018. STIR imaging of the thoracic spine demonstrates no focal area of osseous marrow edema. There is no anterolisthesis or retrolisthesis seen within the thoracic spine. T1-2: Unremarkable T2-3: Unremarkable T3-4: Unremarkable T4-5: Unremarkable T5-6: Unremarkable T6-7: Unremarkable T7-8: Unremarkable T8-9: Small right paracentral disc protrusion with nocentral canal or neural foraminal stenosis. T9-10: Small right paracentral disc protrusion with no central canal or neural foraminal stenosis T10-11: Unremarkable T11-12: Unremarkable T12-L1: Unremarkable. There is a cyst within the upper pole of the left kidney measuring 2.2 cm. No focal area of abnormal signal intensity is identified within the cervical cord. IMPRESSION: No significant central canal or neural foraminal stenosis within the thoracic spine.
--- NOTE | 2018-09-03 16:27 | MRI ---
MRI CERVICAL SPINE NONCONTRAST 09/03/18 HISTORY: 63-year-old male with cervical myelopathy, M50.00. Dr. Rodriguez notified Dr. Jaffe of the findings by telephone at 4:41 pm, 09/03/2018. COMPARISON: None available. FINDINGS: Vertebral body heights are maintained. No major bone marrow signal abnormality. The spinal canal is d iffusely small in caliber on a congenital basis due to developmentally short pedicles. This is exace rbated by cervical spondylosis at all levels except C7-T1. There is a large central and bilateral par acentral disc extrusion extending from the upper C3 level all the way down to the mid C5 level that c auses severe central spinal canal stenosis and severely compresses the spinal cord, flattening it in AP dimension. (Subsequent CT confirms that this is an extruded disc herniation rather than ossified p osterior longitudinal ligament). There is extensive cord edema from upper C3 to upper C5 levels. In addition, there is neural foraminal stenosis of varying degrees due to uncinate process osteophyte s: C2-3: Mild to moderate right neural foraminal stenosis. No left neural foraminal stenosis. C3-4: Severe bilateral neural foraminal stenosis. Moderate disc space narrowing. C4-5: Severe bilateral neural foraminal stenosis, right worse than left. Moderate to severe disc spac e narrowing. Degenerative retrolisthesis of C4 on C5. C5-6: Severe bilateral neural foraminal stenosis. Mild to moderate disc space narrowing. Somewhat se mayra central spinal canal stenosis. C6-7: Large bilateral uncinate process osteophytes cause severe bilateral neural foraminal stenosis. Disc bulge-osteophytic bar complex. Moderate to severe central spinal canal stenosis. C7-T1: No central or neural foraminal stenosis. IMPRESSION: 1. Large extruded disc herniation extending from upper C3 level to upper C5 level causing severe cord compression and cord edema. 2. Severe bilateral neural foraminal stenosis and high grade central spinal canal stenosis at al most every level except C7-T1. Code T POS: [facility]
--- NOTE | 2018-09-03 18:02 | MRI ---
MRI LUMBAR SPINE: 09/03/18 Multiplanar and multisequential imaging lumbar spine obtained. HISTORY: Thoracic myelopathy. Lumbar vertebrae maintain normal height and alignment. Degenerative disc changes are present. Loss of disc spaces most pronounced at L4-5 and L5-S1. Degenerative osteophytes of the lumbar vertebrae. Lum bar vertebral body signal is normally preserved. At L1-2, no significant disc bulge or protrusion. No central canal or foraminal stenosis. At L2-3, annular fissure with diffuse disc bulge. Facet and ligamentous hypertrophy. Posterior epidur al fat. These changes result in mild central canal stenosis. No significant foraminal stenosis. At L3-4, diffuse disc bulge flattens the anterior thecal sac. Facet and ligamentous hypertrophy and p osterior epidural fat are noted. These changes result in mild central canal stenosis. No significant foraminal stenosis. At L4-5, annular fissure with broad based disc bulge and small central protrusion compresses the thec al sac. Facet and ligamentous hypertrophy. Mild to moderate central canal stenosis. Asymmetric disc o steophyte complex projects into the right foramina. There is right foraminal stenosis secondary to th e disc osteophyte complex and facet hypertrophy. Left foramina is patent. At L5-S1, degenerative disc change. Diffuse disc bulge. Prominent facet hypertrophy. Mild central can al stenosis. Bilateral foraminal stenosis due to disc and hypertrophic change. Asymmetric disc bulge projects to the right. IMPRESSION: Posterior disc bulge at multiple levels with central canal and foraminal stenosis seen as described a rhonda. POS: [facility]
== END 2018-09-03 14:13 | disposition home or self-care (01) ==
LOC: SCSMRI 14:12
PROVIDERS: ATTEND Anesthesiology
DX: M51.06 Intervertebral disc disorders with myelopathy, lumbar region (principal); M48.061 Spinal stenosis, lumbar region without neurogenic claudication; M48.02 Spinal stenosis, cervical region; M50.00 Cervical disc disorder with myelopathy, unspecified cervical region
CPT/HCPCS: 72141; 72146; 72148

== ENCOUNTER 2018-09-03 16:20 | Inpatient (IN) | payer BC ==
[2018-09-03 17:38] LABS: #Basophils 0.1 thou/uL (0.0-0.2); #Eosinphils 0.2 thou/uL (0.0-0.7); #Lymphocytes 1.9 thou/uL (1.20-3.40); #Monocytes 0.4 thou/uL (0.11-0.59); #Neutrophils 3.5 thou/uL (1.40-6.50); %Basophils 1.4 % (0.0-1.0); %Eosinophils 2.7 % (0.0-10.0); %Lymphocytes 31.1 % (21.0-51.0); %Monocytes 6.3 % (0.0-10.0); %Neutrophils 58.5 % (42.0-75.0); Hemoglobin 13.1 g/dL (14.0-18.0); Mean Corpuscular HGB CONC 33.8 g/dL (32.0-36.0); Mean Corpuscular Hemoglobin 30.1 pg (27.0-31.0); Mean Corpuscular Volume 89.2 fL (78.0-98.0); Mean Platelet Volume 11.8 fL (7.4-10.4); Platelet Count 154 thou/uL (130-400); Red Blood Cell (RBC) Count 4.37 mill/uL (4.70-6.10)
[2018-09-03 17:40] LABS: PTT 29.8 SEC (22.9-36.1); Prothrombin Time 13.5 SEC (12.0-14.7)
[2018-09-03 17:51] LABS: ALT (SGPT) 19 U/L (8-55); AST (SGOT) 18 U/L (5-34); Albumin 4.4 g/dL (3.4-4.8); Alkaline Phosphatase 57 U/L (40-150); Anion Gap 15 mmol/L (10-20); BUN (Urea Nitrogen) 15 mg/dL (8.4-25.7); Bilirubin, Total 0.3 mg/dL (0.2-1.2); Calc. Creatinine Clearance 0 mL/min (70-130); Calcium 9.6 mg/dL (7.8-10.44); Carbon Dioxide 21 mmol/L (23-31); Chloride 108 mmol/L (98-107); Estimated GFR-MDRD Greater than 90; Globulin 3.4 g/dL (2.4-3.5); Glucose 114 mg/dL (80-115); Protein, Total 7.8 g/dL (5.8-8.1); Sodium 140 mmol/L (136-145)
--- NOTE | 2018-09-03 17:54 | CT ---
CT CERVICAL SPINE: 09/03/18 Multiple axial tomograms obtained through the cervical spine with multiplanar reconstruction. INDICATIONS: Cervical radiculopathy. Follow-up MRI cervical spine which showed cord compression. FINDINGS: Moderately severe degenerative changes cervical spine noted. There is loss of disc space at all level s with prominent osteophytes from the cervical vertebrae. C2-3: Mild central disc bulge abuts the anterior cord. No foraminal stenosis. C3-4: Disc protrusion and spondylosis severely compress the cord. Mostly this is disc density. Severe cord compression is noted on MRI. Mild right foraminal narrowing due to facet and uncinate hypertrop hy. C4-5: Disc bulge with mild central protrusion and spondylosis impinge on and compress the cord. Bilat eral foraminal narrowing due to facet and uncinate hypertrophy. C5-6: Disc bulge and spondylosis impinge on a mildly flattened anterior cord. Bilateral foraminal el rowing due to facet and uncinate hypertrophy. C6-7: Prominent spondylosis impinges on the cord. Bilateral foraminal stenosis secondary to uncinate hypertrophy. IMPRESSION: Severe cord compression is seen at C3-4, C4-5 and C5-6 corresponding to MRI findings. Bony changes an d disc protrusions are delineated on CT as noted above. POS: [facility]
[2018-09-03] MEDS ORDERED: Ondansetron PF 4 MG/2 ML Vial IVP PRN (18:44)
[2018-09-03] MEDS ORDERED: Acetaminophen 325 MG TAB PO PRN (18:44)
[2018-09-03] MEDS ORDERED: [UNRECOGNIZED DRUG - REMARK] FS SCH (19:15)
[2018-09-03] MEDS: HYDROcodone/Acetaminophen 5/325 mg Tablet PO PRN (21:33)
[2018-09-03] MEDS: tiZANidine HCl 4 MG TAB PO PRN (21:33)
[2018-09-03 23:26] VITALS: BMI 27.3
--- NOTE | 2018-09-04 01:25 | HP ---
This is Henry Ornelas PA-C dictating a report for Anthony Giordano MD. This is a 50-minute initial patient evaluation of which greater than 50% of the exam was spent in counseling and coordinating the patient's care. Remainder of the exam was spent in review of patient's medical records and formulation of treatment plan, as well as review of appropriate imaging studies. CHIEF COMPLAINT: Progressive cervical myelopathy with fine motor incoordination with increased falls. HISTORY OF PRESENT ILLNESS: Mr. Vo is a pleasant 63-year-old male, who presents to [facility] for the above complaints. He is a previous patient of Dr. Klein and did undergo lumbar spine surgery in 2017. At that time, he had some left leg pain and after surgery, this improved, however, he had some new onset right buttock and hip pain with continued paresthesias into the bilateral lower extremities, especially into the feet. Since March of 2018, has noted progressive difficulty with fine motor incoordination, increased falls especially worse over the past 3 months. He does undergo pain management with Dr. Jaffe and gets some epidural steroid injections. He has noticed again significant balance issues as well and has required the use of walker for the past 2 weeks. He does not use tobacco. For his coronary artery disease as well as stenting in 2012, he is on Plavix and aspirin. Sees Dr. Baca. He also had a TURP procedure to help with some urinary issues, so denies bowel or bladder incontinence. He has neck pain and some paresthesias with pain into the left greater than right lateral biceps ventral forearm bilateral VM. He also complains of burning into all extremities. Again, his fine motor coordination has been significantly affected as he is almost no longer able to hold a cup for utensils . Review of patient's MRIs of the cervical, thoracic and lumbar spine shows a herniated disc that is small at the L4-5 level, however, in the cervical spine, there is significant spinal cord compression at C3-C4 and C4-C5 that is causing some T2 signal abnormality. Review of the patient's cervical spine CT on my review shows no acute fracture. PHYSICAL EXAMINATION: NEURO: The patient is awake, alert, and appropriate. GCS is 15. During the exam, he is placed in a well-fitting [place] collar. He has mild to moderate weakness throughout all the extremities, but profound bilateral hand intrinsic weakness. He also has moderate or fairly profound left triceps and mild right triceps weakness. Appears to have mild weakness through multiple myotomes of the bilateral lower extremities. He has intact sensation to light touch throughout, however. Potter is negative bilaterally. IMPRESSION AND DIAGNOSES: 1. Progressive cervical spondylosis with myelopathy with fine motor incoordination, balance difficulties and fall. 2. Coronary artery disease, on Plavix and aspirin, seen by Dr. Baca. 3. History of transurethral resection of the prostate. 4. History of lumbar spine surgery with Dr. Klein. 5. Type 2 diabetes mellitus. 6. Hypertension. PLAN: At this time, we will admit the patient to our service and he will likely undergo surgical intervention on Thursday morning. Surgical plan is not yet finalized. However, he will likely need anterior cervical diskectomy and fusion with possible posterior cervical laminectomies and posterior cervical fusion, staged procedure. Nonetheless, Dr. Giordano and I will discuss the patient's imaging and finalize surgical plan and discuss the risks and benefits of the surgery. At this point, however, I would like him to remain off his Plavix. He did take it this morning and remain off his aspirin. We will plan to give him a 6-pack of platelets this morning. I have asked that our [facility] Team see the patient and clear him for surgery. At this time, his platelets are stable at 154. I would like him to remain in an [place] collar at all times. [facility] to [facility] to be admitted as an inpatient on the third tower. I provided pain medications for the patient. I have updated his family in great detail at the bedside. I have again discussed the above procedure, but again we will finalize the plan tomorrow. They are appreciative of the care. Please call with any changes in the patient's neurologic status. Job ID: [id number]
[2018-09-04] MEDS: Senokot S 8.6-50 MG TAB PO SCH ×2 (07:53→21:33)
[2018-09-04] MEDS ORDERED: traMADol HCl 50 MG TAB PO PRN (07:53)
[2018-09-04] MEDS: HYDROcodone/Acetaminophen 5/325 mg Tablet PO PRN ×2 (07:54→12:24)
[2018-09-04] MEDS ORDERED: Zolpidem Tartrate 5 MG TAB PO PRN (07:56)
[2018-09-04] MEDS ORDERED: Artificial Tears 18 DROP/0.9 ML EA EYE PRN (07:56)
[2018-09-04] MEDS ORDERED: Sodium Chloride 0.65% Nasal 44 ML BOT EA NARE PRN (07:56)
[2018-09-04] MEDS ORDERED: hydrALAZINE 20 MG/ML VIAL SLOW IVP PRN (07:56)
[2018-09-04] MEDS ORDERED: Dextrose 5% in Water 1,000 ML IV PRN (07:56)
[2018-09-04] MEDS ORDERED: Ondansetron ODT 4 MG TAB PO PRN (07:56)
[2018-09-04] MEDS ORDERED: Dextrose 50% Abboject 50 ML SYRINGE SLOW IVP PRN (07:56)
[2018-09-04] MEDS ORDERED: Loperamide HCl 2 MG CAP PO PRN (07:56)
[2018-09-04] MEDS ORDERED: Cepastat Lozenges 1 LOZ PO PRN (07:56)
[2018-09-04] MEDS ORDERED: Loratadine 10 MG TAB PO PRN (07:56)
[2018-09-04] MEDS ORDERED: Diabetic Tussin 200 MG/10 ML UDCUP PO PRN (07:56)
[2018-09-04] MEDS ORDERED: Bisacodyl 10 MG SUPP PR PRN (07:56)
[2018-09-04] MEDS: Bupropion 150 MG XL TAB PO SCH (08:56)
[2018-09-04] MEDS: Spironolactone 25 MG TAB PO SCH (08:57)
[2018-09-04] MEDS: Multivitamin W/ Minerals 1 TAB PO SCH (08:57)
[2018-09-04] MEDS: Doxazosin 2 MG TAB PO SCH (08:57)
[2018-09-04] MEDS ORDERED: Amitriptyline HCl 25 MG TAB PO SCH (09:00)
[2018-09-04] MEDS ORDERED: BUPRENORPHINE TOP SCH (09:00)
[2018-09-04] MEDS: Atenolol 50 MG TAB PO SCH ×2 (09:02→21:32)
--- NOTE | 2018-09-04 09:52 | RAD ---
PORTABLE CHEST 1 VIEW: DATE: 09/04/2018. TIME: 9:21 a.m. HISTORY: Preoperative evaluation. FINDINGS: Comparison is made with the exam of 10/13/2014. The heart size is normal. The aorta is tortuous. Th e lungs are well expanded without lobar consolidation, pneumothoraces, or pleural effusions. IMPRESSION: No radiographic evidence of acute cardiopulmonary process. POS: [facility]
--- NOTE | 2018-09-04 09:57 | CON ---
DATE OF CONSULTATION: PRIMARY CARE PHYSICIAN: [facility] Call Admission. REASON FOR ADMISSION: Cervical spine cord compression. REASON FOR CONSULTATION: Medical comanagement and preoperative clearance. HISTORY OF PRESENT ILLNESS: This is a 63-year-old male, who has history of back pain since 2017. At that time, he was having left-sided lumbar radiculopathy and his pain was intense about 10/10. He was following pain specialist, Dr. Jaffe, and he was managed with several back injections with steroid, that did help momentarily for his back pain, but pain returned back and that is why the patient required back surgery at the same year. Back surgery did help for short term for his back pain. Subsequently, the patient also had surgery for his bladder in 2018. At that time, he was having clot retention, but subsequently when he followed up with Urology, all problems cleared. During this period, the patient again was experiencing difficulty walking. He had several falls at workplace. He lost his job because of falling frequently. He was also having neck pain and paresthesia and numbness in both upper extremities. He was having difficulty raising both upper extremities above head. He was feeling day-by-day worse. He was dragging his legs while walking. He continued to follow up with Dr. Jaffe and he ordered thoracic, lumbar, cervical spine MRI, which was done yesterday. The patient was found with large extruded disk herniation extending from upper C3 level to upper C5 level causing severe cord compression and cord edema as well as severe bilateral neural foraminal stenosis and high-grade central spinal canal stenosis. After that, CT cervical spine was ordered, which also showed similar finding with severe cord compression at C3, C4, C5, C6 level. After this MRI, the patient was told to go to emergency room and required admission. This patient has cardiac catheterization back in [address] Baca, and at that time, the patient had stent placed, and he was taking aspirin and Plavix since then. The patient denies any angina. He denies any dyspnea on exertion, palpitation, orthopnea, PND, syncope. He denies any cough, shortness of breath, hemoptysis, pleurisy, calf tenderness, lower extremity swelling. He does have intermittent constipation, but denies any diarrhea. He does not have any retention or incontinence. He denies any hematuria. In the emergency room, EKG was unremarkable. Chest x-ray, I just ordered it, but the patient does not have any respiratory symptoms. REVIEW OF SYSTEMS: CONSTITUTIONAL: Negative for weight loss or gain, ability to conduct usual activities. SKIN: Negative for rash, itching. EYES: Negative for double vision, pain. ENT/MOUTH: Negative for nose bleeding, neck stiffness, pain, tenderness. CARDIOVASCULAR: Negative for palpitations, dyspnea on exertion, orthopnea. RESPIRATORY: Negative for shortness of breath, wheezing, cough, hemoptysis, fever or night sweats. GASTROINTESTINAL: Negative for poor appetite, abdominal pain, heartburn, nausea, vomiting, constipation, or diarrhea. GENITOURINARY: Negative for urgency, frequency, dysuria, nocturia. MUSCULOSKELETAL: Negative for pain, swelling. NEUROLOGIC/PSYCHIATRIC: Negative for anxiety, depression. ALLERGY/IMMUNOLOGIC: Negative for skin rash, bleeding tendency. All review of systems reviewed and negative except as mentioned in HPI. PAST MEDICAL HISTORY: Coronary artery disease; 2-vessel CAD, treated with stent in 2012; history of small bowel obstruction; gastroesophageal reflux disease; diabetes, type 2; hypertension; dyslipidemia; benign enlargement of prostate; chronic low back pain from lumbar stenosis. PAST SURGICAL HISTORY: Cardiac catheterization with stent placement in 2012, benign intestinal tumor removal, and TURP in January 2018. PAST PSYCHIATRIC HISTORY: Anxiety and depression. SOCIAL HISTORY: The patient drinks alcohol occasionally. He denies any other illicit drug abuse. He denies any smoking. FAMILY HISTORY: No strong family history of premature coronary artery disease, stroke or cancer. ALLERGIES: THE PATIENT IS ALLERGIC TO LISINOPRIL, THAT GIVES HIM ANGIOEDEMA. CURRENT HOME MEDICATIONS: 1. Buprenorphine one patch every 7 days. 2. Amitriptyline 50 mg p.o. daily. 3. Amlodipine 10 mg daily. 4. Atenolol 50 mg b.i.d. 5. Lipitor 20 mg p.o. daily. 6. Bupropion XL 150 mg daily. 7. Celecoxib 200 mg p.o. daily. 8. Plavix 75 mg daily. 9. Doxazosin 2 mg daily. 10. Glipizide ER 10 mg daily. 11. Metformin 500 mg three times daily. 12. Multivitamin one tablet daily. 13. Omeprazole 20 mg p.o. daily. 14. Tramadol 50 mg q.i.d. p.r.n. 15. Aspirin 81 mg daily. 16. Baclofen 20 mg b.i.d. p.r.n. 17. Aldactone 25 mg p.o. daily. HOSPITAL COURSE: Reviewed. PHYSICAL EXAMINATION: VITAL SIGNS: Currently temperature 97.9, pulse 73, respiratory rate 18, saturation 94% on room air, blood pressure 162/94, and weight 185 pounds. GENERAL: The patient is currently alert, awake, in no obvious acute distress. HEENT: Head; normocephalic, atraumatic. Eyes; pupils round and reactive to light, extraocular muscle intact. ENT; oropharynx within normal limits, moist mucous membranes, no oral lesion, no pharyngeal erythema, no exudate. NECK: Cervical collar in place. No JVD. No lymphadenopathy. LUNGS: Clear to auscultation without any rhonchi or rales. No accessory muscles of respiration in use. CARDIAC: S1 and S2 regular. No murmur. No gallop. No rub. ABDOMEN: Soft. Bowel sounds present. Nontender. Nondistended. No organomegaly. No mass. No suprapubic tenderness. BACK: Unremarkable. No CVA tenderness. EXTREMITIES: Upper extremity, passive movement of all joints are normal. Lower extremity, passive movement of all joints are normal. No edema. No calf tenderness. Good distal pulsation. SKIN: No skin rash. HEMATOLOGICAL SYSTEM: No lymphadenopathy. NEUROLOGIC: The patient is alert and oriented x3. Cranial nerves 2 through 12 intact. Motor, the patient does have motor weakness on both upper extremities and subjective sensory changes in the upper extremity. The patient does have slight motor weakness on both lower extremities. Plantar, bilateral flexor. Reflexes, exaggerated. LABORATORY DATA: Significant labs: CBC; WBC 6.0, hemoglobin 13.1, and platelet 154. INR 1.0. BMP; sodium 140, potassium 4.0, chloride 108, carbon dioxide 21, anion gap 15, BUN 15, creatinine 0.76, glucose 114, and calcium 9.6. LFT; AST 18, ALT 19, alkaline phosphatase 57, and albumin 4.4. IMAGING: CT cervical spine showing severe cord compression at C3-C4, C4-C5, and C5-C6 level. MRI lumbar spine showing posterior disk bulge at multiple levels with central canal and foraminal stenosis. Cervical spine MRI showing large extruded disk herniation at C3 level to upper C5 level causing cord compression and cord edema, foraminal stenosis. Chest x-ray is ordered and we will review. ASSESSMENT/PLAN: 1. Preoperative clearance. This patient has cardiac catheterization in 2012 and found with 2-vessel coronary artery disease. At that time, stent was placed, and the patient is taking aspirin and Plavix since then. Currently, EKG is normal and he does not have any angina. He does not have any CHF symptoms. The patient is planned for surgery for cervical cord compression. At this point, because of the patient's asymptomatic nature without any cardiac symptoms, the patient is medically cleared for surgery. Because of surgery on neck, we have to hold aspirin and Plavix, but we will continue atenolol 50 mg b.i.d. and Lipitor 20 mg p.o. at bedtime. At this point, medically, he does not need any more investigation. 2. Cervical cord compression with cervical myelopathy. The patient has gradually worsening symptoms from cervical disk herniation. The patient will need urgent surgery. Neurosurgery admitted this patient. The patient is cleared for surgery. Postoperatively, the patient will need pain control, SCD for DVT prophylaxis, PT/OT, and possible rehab placement. We will monitor all hemodynamics perioperatively. 3. Diabetes, type 2. At this point, I am starting glipizide ER 10 mg daily, but if the patient is n.p.o., then we will hold on that medication and we will continue insulin as per sliding scale per protocol. Diabetic diet will be given perioperatively and postoperatively. We will hold on metformin therapy for now. 4. Hypertension. We will continue amlodipine 10 mg p.o. daily and atenolol 50 mg p.o. b.i.d. Postoperatively, if blood pressure drops, then we will hold on blood pressure medication for blood pressure less than 120 systolic. 5. Benign enlargement of prostate. We will continue doxazosin 2 mg p.o. daily. 6. Gastroesophageal reflux disease. We will continue Protonix 40 mg p.o. daily. 7. Anxiety and depression. We will continue amitriptyline 50 mg p.o. daily and bupropion 150 mg p.o. daily. 8. Chronic low back pain from lumbar disk disease, required surgery in the past, and still ongoing low back pain. Pain will be controlled with pain medication. 9. Deep venous thrombosis prophylaxis. During entire hospital course, we will prefer to have SCDs. No Lovenox because of plan for cervical spine surgery. 10. Gastrointestinal prophylaxis, Protonix 40 mg p.o. daily. CODE STATUS: The patient is full code. The patient's daughter is surrogate decision maker. DISPOSITION PLAN: Based on clinical course. Thank you for consult. We will follow up with you during this hospital course. Plan of care discussed with the patient and family member at bedside. Job ID: [id number]
[2018-09-04] MEDS: HumaLOG 300 UNITS/3 ML VIAL SC PRN ×2 (12:32→16:44)
--- NOTE | 2018-09-04 12:45 | PRG ---
DATE OF SERVICE: 09/04/2018 This is a 50-minute initial hospital visit note, in which 50 minutes were spent in review of the imaging record, evaluation and examination of the patient, formulation of plan on Christine Vo. SUBJECTIVE: Mr. Vo is a 63-year-old man. He had been operated by my colleague, Dr. Klein, in the past in the lumbar spine. He had been admitted for a 6-month history of progressive quadriparesis, and MRI of the full spine yesterday demonstrated severe stenosis from C3 through C5 and [id number] at C5-C6. As such, I have recommended surgery, which would be a C3-C4 and C4-C5 laminectomies and C3 through C6 fusion. He is on Plavix, and as such, we will need to give him platelets, and we have requested clearance for surgery, although again I would consider this an emergency. He has disk material that is not calcified on CT that extends from really midportion of C3 all the way down to the midportion of C5, and obviously, a corpectomy here would have significant blood loss risk given his Plavix, and I would be concerned about not being able to adequately decompress him. As such, we will make arrangements for C3 through C5 laminectomies and C3 through C6 fusion. OBJECTIVE: GENERAL: He is alert and appropriate. NEUROLOGIC: He has quadriparesis in all 4 extremities, but is able to move these antigravity. He is profoundly weak, however. PLAN: He would like us to proceed with surgery. I extensively discussed the informed consent with he and his family and they understand. Job ID: [id number]
[2018-09-04] MEDS: traMADol HCl 50 MG TAB PO PRN (17:21)
[2018-09-04] MEDS: Baclofen 10 MG TAB PO PRN (21:32)
[2018-09-04] MEDS: Amitriptyline HCl 25 MG TAB PO SCH (21:33)
[2018-09-04] MEDS: Amlodipine 10 MG TAB PO SCH (21:33)
[2018-09-04] MEDS: Atorvastatin Calcium 20 MG TAB PO SCH (21:36)
[2018-09-05] MEDS: Atenolol 50 MG TAB PO SCH ×2 (07:23→20:01)
[2018-09-05] MEDS ORDERED: Fentanyl 250 MCG/5 ML VIAL ONE (07:36)
[2018-09-05] MEDS ORDERED: Bacitracin Zinc Ointment 30 gm TUBE ONE (07:43)
[2018-09-05] MEDS ORDERED: Sodium Chloride 0.9% 10 ML ONE (07:43)
[2018-09-05] MEDS ORDERED: Thrombin 5000 UNITS/5 ML VIAL ONE (07:43)
[2018-09-05] MEDS ORDERED: Scopolamine 1.5 mg/72 hour Patch ONE (07:55)
[2018-09-05] MEDS ORDERED: Midazolam HCl 2 mg/2 ml Vial ONE (08:00)
[2018-09-05] MEDS ORDERED: Ondansetron HCl/PF 4 MG/2 ML Vial IVP PRN (08:12)
--- NOTE | 2018-09-05 09:32 | PRG ---
DATE OF SERVICE: 09/05/2018 Mr. Vo is to undergo surgery today. We have discussed this with him and we will proceed. Job ID: [id number]
[2018-09-05] MEDS ORDERED: PROPOFOL 200 MG/20 ML VIAL ONE (10:08)
[2018-09-05] MEDS ORDERED: Ondansetron PF 4 MG/2 ML Vial ONE (10:08)
[2018-09-05] MEDS ORDERED: Phenylephrine HCL 10 MG/ML VIAL ONE (10:08)
[2018-09-05] MEDS ORDERED: Lidocaine 1% PF 5 ML VIAL ONE (10:08)
[2018-09-05] MEDS ORDERED: Rocuronium Bromide 10 MG/ML (10ML VIAL) ONE (10:08)
[2018-09-05] MEDS ORDERED: ePHEDrine 50 MG/ML VIAL ONE (10:08)
[2018-09-05] MEDS ORDERED: Rocuronium Bromide 50 MG/5 ML VIAL ONE (10:24)
[2018-09-05] MEDS ORDERED: SUGAMMADEX SODIUM 200 MG/2 ML VIAL ONE (10:27)
--- NOTE | 2018-09-05 11:36 | PDOC.PN ---
- Subjective Encounter Start Date: 09/05/18 Encounter Start Time: 14:13 -: old records requested/rev pt seen in PACU, s/p surgery Patient seen and examined. No overnight events - Objective Resuscitation Status - Order Detail: 09/03/18 18:44 Resuscitation Status Routine Co-Sign Provider: Resuscitation Status: FULL: Full Resuscitation MAR Reviewed: Yes Vital Signs & Weight: Vital Signs (12 hours) Temp Pulse Resp BP BP Pulse Ox 09/05/18 07:23 76 160/83 H 09/05/18 07:10 97.9 F 76 18 160/83 H 94 L 09/05/18 04:00 97.7 F 74 16 144/81 H 94 L 09/04/18 23:49 97.9 F 70 16 145/77 H 94 L Weight Weight 185 lb 3.013 oz I&O: 09/04/18 09/05/18 09/06/18 06:59 06:59 06:59 Intake Total 1380 Balance 1380 Result Diagrams: 09/03/18 17:25 09/03/18 17:25 Additional Labs: Accuchecks 09/05/18 09/04/18 09/04/18 05:57 20:32 15:57 POC Glucose 202 H 134 H 225 H Radiology Reviewed by me: Yes (chest xray normal) Phys Exam - Physical Examination Constitutional: NAD HEENT: PERRLA, moist MMs, sclera anicteric Neck: no JVD, supple Respiratory: no wheezing, no rales, no rhonchi, clear to auscultation bilateral Cardiovascular: RRR, no significant murmur, no rub Gastrointestinal: soft, non-tender, no distention, positive bowel sounds Musculoskeletal: no edema, pulses present Neurological: moves all 4 limbs Lymphatic: no nodes Psychiatric: normal affect, A&O x 3 Skin: no rash, normal turgor Dx/Plan (1) Cervical spinal cord compression Code(s): G95.20 - UNSPECIFIED CORD COMPRESSION Status: Acute (2) Chronic low back pain Code(s): M54.5 - LOW BACK PAIN; G89.29 - OTHER CHRONIC PAIN Status: Chronic (3) Diabetes type 2, controlled Code(s): E11.9 - TYPE 2 DIABETES MELLITUS WITHOUT COMPLICATIONS Status: Chronic (4) BPH (benign prostatic hyperplasia) Code(s): N40.0 - BENIGN PROSTATIC HYPERPLASIA WITHOUT LOWER URINRY TRACT SYMP Status: Chronic (5) CAD (coronary artery disease) Code(s): I25.10 - ATHSCL HEART DISEASE OF [place] CORONARY ARTERY W/O ANG PCTRS Status: Chronic Comment: (6) HTN (hypertension) Code(s): I10 - ESSENTIAL (PRIMARY) HYPERTENSION Status: Chronic (7) Dyslipidemia Code(s): E78.5 - HYPERLIPIDEMIA, UNSPECIFIED Status: Chronic (8) Anxiety and depression Code(s): F41.9 - ANXIETY DISORDER, UNSPECIFIED; F32.9 - MAJOR DEPRESSIVE DISORDER, SINGLE EPISODE, UNSPECIFIED Status: Chronic (9) GERD (gastroesophageal reflux disease) Code(s): K21.9 - GASTRO-ESOPHAGEAL REFLUX DISEASE WITHOUT ESOPHAGITIS Status: Chronic - Plan cont current plan of care * today plan for surgery * medication reviewed as below * symptomatic treatment. Review of Systems - Review of Systems ENT: negative: Ear Pain, Ear Discharge, Nose Pain, Nose Discharge, Nose Congestion, Mouth Pain, Mouth Swelling, Throat Pain, Throat Swelling, Other Respiratory: negative: Cough, Dry, Shortness of Breath, Hemoptysis, SOB with Excertion, Pleuritic Pain, Sputum, Wheezing Cardiovascular: negative: chest pain, palpitations, orthopnea, paroxysmal nocturnal dyspnea, edema, light headedness, other Genitourinary: negative: Dysuria, Frequency, Incontinence, Hematuria, Retention , Other Musculoskeletal: Neck Pain. negative: Shoulder Pain, Arm Pain, Back Pain, Hand Pain, Leg Pain, Foot Pain, Other Neurological: Weakness. negative: Numbness, Incoordination, Change in Speech, Confusion, Seizures, Other - Medications/Allergies Allergies/Adverse Reactions: Allergies Allergy/AdvReac Type Severity Reaction Status Date / Time lisinopril Allergy angioedema Verified 01/20/18 12:18 Medications: Current Medications Acetaminophen (Tylenol) 650 mg PO Q4H PRN PRN Reason: Headache/Fever/Mild Pain (1-3) Last Admin: 09/04/18 17:20 Dose: 650 mg Hydrocodone Bitart/Acetaminophen ([place] 5/325) 1 tab PO Q4H PRN PRN Reason: Moderate Pain (4-6) Last Admin: 09/04/18 12:24 Dose: 1 tab Amitriptyline HCl (Elavil) 50 mg PO HS [facility] Last Admin: 09/04/18 21:33 Dose: 50 mg Amlodipine Besylate (Norvasc) 10 mg PO HS [facility] Last Admin: 09/04/18 21:33 Dose: 10 mg Artificial Tears (Tears Naturale) 2 drop EA EYE PRN PRN PRN Reason: Dry Eyes Atenolol (Tenormin) 50 mg PO BID [facility] Last Admin: 09/05/18 07:23 Dose: 50 mg Atorvastatin Calcium (Lipitor) 20 mg PO HS [facility] Last Admin: 09/04/18 21:36 Dose: 20 mg Baclofen (Lioresal) 20 mg PO BIDPRN PRN PRN Reason: Muscle Pain Last Admin: 09/04/18 21:32 Dose: 20 mg Bisacodyl (Dulcolax) 10 mg [place] DAILYPRN PRN PRN Reason: Constipation Bupropion HCl (Wellbutrin Xl) 150 mg PO DAILY [facility] Last Admin: 09/04/18 08:56 Dose: 150 mg Dextrose/Water (Dextrose 50%) 25 gm SLOW IVP PRN PRN PRN Reason: Hypoglycemia Doxazosin Mesylate (Cardura) 2 mg PO DAILY [facility] Last Admin: 09/04/18 08:57 Dose: 2 mg Glipizide (Glucotrol Xl) 10 mg PO DAILY [facility] Last Admin: 09/04/18 08:56 Dose: 10 mg Glucagon (Glucagon) 1 mg IM PRN PRN PRN Reason: Hypoglycemia Guaifenesin (Robitussin Sf) 200 mg PO Q4H PRN PRN Reason: Cough Hydralazine HCl (Apresoline) 10 mg SLOW IVP Q4H PRN PRN Reason: SBP > 180 and HR < 70 Dextrose/Water (D5w) 1,000 mls @ 0 mls/hr IV .Q0M PRN PRN Reason: Hypoglycemia Insulin Human Lispro (Humalog) 0 units SC .MODERATE SLIDING SC PRN PRN Reason: Moderate Correctional Scale Last Admin: 09/04/18 16:44 Dose: 4 unit Insulin Human Lispro (Humalog) 0 units SC .BEDTIME SLIDING SC PRN PRN Reason: Bedtime Correctional Scale Iron/Minerals/Multivitamins (Theragran M) 1 tab PO DAILY [facility] Last Admin: 09/04/18 08:57 Dose: 1 tab Loperamide HCl (Imodium) 2 mg PO PRN PRN PRN Reason: Diarrhea/Loose Stools Loratadine (Claritin) 10 mg PO DAILYPRN PRN PRN Reason: Sinus Symptoms Morphine Sulfate (Morphine) 2 mg SLOW IVP Q1H PRN PRN Reason: Severe Pain (7-10) Hold All (Antithrombotics) 1 each FS .HOLD ANTITHROMB KATHY Ondansetron HCl (Zofran) 4 mg IVP Q6H PRN PRN Reason: Nausea/Vomiting Last Admin: 09/04/18 20:24 Dose: 4 mg Ondansetron HCl (Zofran Odt) 4 mg PO Q6H PRN PRN Reason: Nausea/Vomiting Pantoprazole Sodium (Protonix) 40 mg PO DAILY [facility] Last Admin: 09/04/18 08:57 Dose: 40 mg Senna/Docusate Sodium (Senokot S) 2 tab PO BID [facility] Last Admin: 09/04/18 21:33 Dose: 2 tab Sodium Chloride ([place] Nasal [place] 0.65%) 0 ml EA NARE QIDPRN PRN PRN Reason: Nasal Congestion Spironolactone (Aldactone) 25 mg PO QAM [facility] Last Admin: 09/04/18 08:57 Dose: 25 mg Throat Lozenges (Cepastat Lozenges) 1 shanice PO Q2H PRN PRN Reason: Sore Throat Tizanidine HCl (Zanaflex) 4 mg PO TID PRN PRN Reason: Muscle Spasm Last Admin: 09/03/18 21:33 Dose: 4 mg Tramadol HCl (Ultram) 100 mg PO Q6H PRN PRN Reason: Moderate Pain (4-6) Last Admin: 09/04/18 17:21 Dose: 100 mg Zolpidem Tartrate (Ambien) 5 mg PO HSPRN PRN PRN Reason: Insomnia
[2018-09-05] MEDS ORDERED: Fentanyl 100 MCG/2 ML VIAL ONE ×3 (13:03→13:47)
[2018-09-05] MEDS ORDERED: CEFAZOLIN 2 GM in Premix Bag 1 BAG IVPB SCH (14:00)
[2018-09-05] MEDS: Morphine 2 MG/ML SYRINGE SLOW IVP PRN ×4 (14:21→22:59)
[2018-09-05] MEDS: Bupropion 150 MG XL TAB PO SCH (15:00)
[2018-09-05] MEDS: Multivitamin W/ Minerals 1 TAB PO SCH (15:00)
[2018-09-05] MEDS: Doxazosin 2 MG TAB PO SCH (15:00)
[2018-09-05] MEDS: Senokot S 8.6-50 MG TAB PO SCH ×2 (15:01→20:00)
[2018-09-05] MEDS: Spironolactone 25 MG TAB PO SCH (15:03)
[2018-09-05] MEDS: HYDROcodone/Acetaminophen 5/325 mg Tablet PO PRN ×2 (15:27→19:57)
[2018-09-05] MEDS: CEFAZOLIN 2 GM in Premix Bag 1 BAG IVPB SCH (16:00)
[2018-09-05] MEDS: HumaLOG 300 UNITS/3 ML VIAL SC PRN ×2 (16:01→20:59)
[2018-09-05] MEDS: traMADol HCl 50 MG TAB PO PRN (16:43)
[2018-09-05] MEDS: Baclofen 10 MG TAB PO PRN (16:43)
[2018-09-05] MEDS: Amitriptyline HCl 25 MG TAB PO SCH (20:00)
[2018-09-05] MEDS: Amlodipine 10 MG TAB PO SCH (20:00)
[2018-09-05] MEDS: Atorvastatin Calcium 20 MG TAB PO SCH (20:01)
[2018-09-05] MEDS: tiZANidine HCl 4 MG TAB PO PRN (22:59)
[2018-09-06] MEDS: HYDROcodone/Acetaminophen 5/325 mg Tablet PO PRN ×4 (00:47→17:52)
[2018-09-06] MEDS: CEFAZOLIN 2 GM in Premix Bag 1 BAG IVPB SCH ×3 (01:20→17:54)
[2018-09-06] MEDS: Morphine 2 MG/ML SYRINGE SLOW IVP PRN ×3 (04:10→15:38)
[2018-09-06] MEDS: HumaLOG 300 UNITS/3 ML VIAL SC PRN ×3 (06:27→15:38)
[2018-09-06] MEDS: Senokot S 8.6-50 MG TAB PO SCH ×2 (08:19→20:52)
[2018-09-06] MEDS: Multivitamin W/ Minerals 1 TAB PO SCH (08:20)
[2018-09-06] MEDS: Bupropion 150 MG XL TAB PO SCH (08:20)
[2018-09-06] MEDS: Spironolactone 25 MG TAB PO SCH (08:20)
[2018-09-06] MEDS: Doxazosin 2 MG TAB PO SCH (08:20)
[2018-09-06] MEDS: Baclofen 10 MG TAB PO PRN ×2 (08:20→20:55)
[2018-09-06] MEDS: Atenolol 50 MG TAB PO SCH ×2 (08:20→20:52)
--- NOTE | 2018-09-06 08:53 | OP ---
DATE OF PROCEDURE: 09/05/2018 PIZZA BAKER: Henry Ornelas PA-C PREOPERATIVE DIAGNOSIS: Multilevel cervical stenosis with myelopathy. POSTOPERATIVE DIAGNOSIS: Multilevel cervical stenosis with myelopathy. PROCEDURE PERFORMED: 1. C3, C4, C5 laminectomies, partial facetectomies, and foraminotomies with C3, C4, C5, and all nerve roots. 2. Posterolateral fusion, C3-C4, C4-C5, C5-C6. 3. Use of local bone autograft obtained from same incision and allograft for fusion. 4. Posterior screw ankit fixation C3-C4, C5-C6 bilaterally. DESCRIPTION OF PROCEDURE: After informed consent was obtained from the patient, the patient was brought to the OR. Proper patient, pause, and identification were carried out. He was placed under excellent endotracheal anesthesia and positioned prone on the OR table. The Wilson scout was used to secure the head in the kettle operator head. All appropriate points were padded. A linear walt was made directly at C3-C4 and C5-C6, and this region was sterilely cleansed, prepared, and draped. Proper patient, pause, and identification were carried out. The wound was then opened with combination of sharp, monopolar, and blunt dissection. C3-C4, C5-C6 lamina and spinous processes were exposed along with the facet complexes, we carefully preserved the C6-C7 facet complexes. C5-C6 laminectomies, partial facetectomies, and foraminotomies. We had excellent decompression of the common dural tube and nerve roots. Lateral mass screws were then placed at C3, C4, C5, C6 in lateral position and cap screws were final tightened. Copious irrigation occurred throughout as did maximizing hemostasis. The wound was then closed in anatomic layers following sprinkling of vancomycin powder. The patient emerged from Anesthesia. I should note decortication in the posterolateral regions and occurred arthrodesis at C3-C4, C4-C5, C5-C6 bilaterally. Job ID: [id number]
--- NOTE | 2018-09-06 11:11 | PRG ---
DATE OF SERVICE: 09/06/2018 Mr. Vo is postoperative day 1 from cervical decompression and fusion posteriorly. He is doing very well with improvement in his arm and leg function. Able to lift his arms well over his head. He continues to have moderate hand intrinsic weakness, but states his arms and legs feel much better. We are dealing with muscle spasm pain obviously related to laminectomy and fusion. We will continue to mobilize him. I let he and his family know I would be fine with resumption of aspirin 1 week from surgery and Plavix 2 weeks from surgery. Job ID: [id number]
--- NOTE | 2018-09-06 11:54 | PDOC.PN ---
- Subjective Encounter Start Date: 09/06/18 Encounter Start Time: 08:30 -: old records requested/rev Patient seen and examined. No new complaints. No overnight events - Objective Resuscitation Status - Order Detail: 09/03/18 18:44 Resuscitation Status Routine Co-Sign Provider: Resuscitation Status: FULL: Full Resuscitation MAR Reviewed: Yes Vital Signs & Weight: Vital Signs (12 hours) Temp Pulse Resp BP Pulse Ox 09/06/18 07:29 97.6 F 89 18 127/76 96 09/06/18 04:00 97.8 F 97 16 156/81 H 96 09/06/18 00:00 99.3 F 99 16 157/88 H 95 Weight Weight 185 lb 3.013 oz I&O: 09/05/18 09/06/18 09/07/18 06:59 06:59 06:59 Intake Total 1380 974 Output Total 1550 Balance 1380 -576 Result Diagrams: 09/03/18 17:25 09/03/18 17:25 Additional Labs: Accuchecks 09/06/18 09/06/18 09/05/18 11:34 05:15 20:51 POC Glucose 243 H 269 H 232 H 09/05/18 15:32 POC Glucose 227 H Phys Exam - Physical Examination Constitutional: NAD HEENT: PERRLA, moist MMs, sclera anicteric cervical collar+ Respiratory: no wheezing, no rales, no rhonchi Cardiovascular: RRR, no significant murmur, no rub Gastrointestinal: soft, non-tender, no distention, positive bowel sounds Musculoskeletal: no edema, pulses present Neurological: non-focal, normal sensation, moves all 4 limbs Lymphatic: no nodes Psychiatric: normal affect, A&O x 3 Skin: no rash, normal turgor Dx/Plan (1) Cervical spinal cord compression Code(s): G95.20 - UNSPECIFIED CORD COMPRESSION Status: Acute (2) Chronic low back pain Code(s): M54.5 - LOW BACK PAIN; G89.29 - OTHER CHRONIC PAIN Status: Chronic (3) Diabetes type 2, controlled Code(s): E11.9 - TYPE 2 DIABETES MELLITUS WITHOUT COMPLICATIONS Status: Chronic (4) BPH (benign prostatic hyperplasia) Code(s): N40.0 - BENIGN PROSTATIC HYPERPLASIA WITHOUT LOWER URINRY TRACT SYMP Status: Chronic (5) CAD (coronary artery disease) Code(s): I25.10 - ATHSCL HEART DISEASE OF [place] CORONARY ARTERY W/O ANG PCTRS Status: Chronic Comment: (6) HTN (hypertension) Code(s): I10 - ESSENTIAL (PRIMARY) HYPERTENSION Status: Chronic (7) Dyslipidemia Code(s): E78.5 - HYPERLIPIDEMIA, UNSPECIFIED Status: Chronic (8) Anxiety and depression Code(s): F41.9 - ANXIETY DISORDER, UNSPECIFIED; F32.9 - MAJOR DEPRESSIVE DISORDER, SINGLE EPISODE, UNSPECIFIED Status: Chronic (9) GERD (gastroesophageal reflux disease) Code(s): K21.9 - GASTRO-ESOPHAGEAL REFLUX DISEASE WITHOUT ESOPHAGITIS Status: Chronic - Plan cont current plan of care, plan discussed w/ family, PT/OT, psychologist social * s/p surgery for cervical cord compression, doing well post operatively * medication reviewed as below * symptomatic treatment * will need rehab placement * discussed with family * pain controlled Review of Systems - Review of Systems Eyes: negative: Pain, Vision Change, Conjunctivae Inflammation, Eyelid Inflammation, Redness, Other ENT: negative: Ear Pain, Ear Discharge, Nose Pain, Nose Discharge, Nose Congestion, Mouth Pain, Mouth Swelling, Throat Pain, Throat Swelling, Other Respiratory: negative: Cough, Dry, Shortness of Breath, Hemoptysis, SOB with Excertion, Pleuritic Pain, Sputum, Wheezing Cardiovascular: negative: chest pain, palpitations, orthopnea, paroxysmal nocturnal dyspnea, edema, light headedness, other Gastrointestinal: negative: Nausea, Vomiting, Abdominal Pain, Diarrhea, Constipation, Melena, Hematochezia, Other Genitourinary: negative: Dysuria, Frequency, Incontinence, Hematuria, Retention , Other Musculoskeletal: Neck Pain. negative: Shoulder Pain, Arm Pain, Back Pain, Hand Pain, Leg Pain, Foot Pain, Other - Medications/Allergies Allergies/Adverse Reactions: Allergies Allergy/AdvReac Type Severity Reaction Status Date / Time lisinopril Allergy angioedema Verified 01/20/18 12:18 Medications: Current Medications Acetaminophen (Tylenol) 650 mg PO Q4H PRN PRN Reason: Headache/Fever/Mild Pain (1-3) Last Admin: 09/04/18 17:20 Dose: 650 mg Hydrocodone Bitart/Acetaminophen ([place] 5/325) 1 tab PO Q4H PRN PRN Reason: Moderate Pain (4-6) Last Admin: 09/06/18 08:20 Dose: 1 tab Amitriptyline HCl (Elavil) 50 mg PO HS [facility] Last Admin: 09/05/18 20:00 Dose: 50 mg Amlodipine Besylate (Norvasc) 10 mg PO HS [facility] Last Admin: 09/05/18 20:00 Dose: 10 mg Artificial Tears (Tears Naturale) 2 drop EA EYE PRN PRN PRN Reason: Dry Eyes Atenolol (Tenormin) 50 mg PO BID [facility] Last Admin: 09/06/18 08:20 Dose: 50 mg Atorvastatin Calcium (Lipitor) 20 mg PO HS [facility] Last Admin: 09/05/18 20:01 Dose: 20 mg Baclofen (Lioresal) 20 mg PO BIDPRN PRN PRN Reason: Muscle Pain Last Admin: 09/06/18 08:20 Dose: 20 mg Bisacodyl (Dulcolax) 10 mg [place] DAILYPRN PRN PRN Reason: Constipation Bupropion HCl (Wellbutrin Xl) 150 mg PO DAILY [facility] Last Admin: 09/06/18 08:20 Dose: 150 mg Dextrose/Water (Dextrose 50%) 25 gm SLOW IVP PRN PRN PRN Reason: Hypoglycemia Doxazosin Mesylate (Cardura) 2 mg PO DAILY [facility] Last Admin: 09/06/18 08:20 Dose: 2 mg Glipizide (Glucotrol Xl) 10 mg PO DAILY [facility] Last Admin: 09/06/18 08:20 Dose: 10 mg Glucagon (Glucagon) 1 mg IM PRN PRN PRN Reason: Hypoglycemia Guaifenesin (Robitussin Sf) 200 mg PO Q4H PRN PRN Reason: Cough Hydralazine HCl (Apresoline) 10 mg SLOW IVP Q4H PRN PRN Reason: SBP > 180 and HR < 70 Dextrose/Water (D5w) 1,000 mls @ 0 mls/hr IV .Q0M PRN PRN Reason: Hypoglycemia Cefazolin Sodium/Dextrose 2 gm (/ Device) 50 mls @ 100 mls/hr IVPB Q8H [facility] Last Admin: 09/06/18 08:32 Dose: 50 mls Insulin Human Lispro (Humalog) 0 units SC .MODERATE SLIDING SC PRN PRN Reason: Moderate Correctional Scale Last Admin: 09/06/18 06:27 Dose: 6 unit Insulin Human Lispro (Humalog) 0 units SC .BEDTIME SLIDING SC PRN PRN Reason: Bedtime Correctional Scale Last Admin: 09/05/18 20:59 Dose: 2 unit Iron/Minerals/Multivitamins (Theragran M) 1 tab PO DAILY [facility] Last Admin: 09/06/18 08:20 Dose: 1 tab Loperamide HCl (Imodium) 2 mg PO PRN PRN PRN Reason: Diarrhea/Loose Stools Loratadine (Claritin) 10 mg PO DAILYPRN PRN PRN Reason: Sinus Symptoms Morphine Sulfate (Morphine) 2 mg SLOW IVP Q1H PRN PRN Reason: Severe Pain (7-10) Last Admin: 09/06/18 06:22 Dose: 2 mg Hold All (Antithrombotics) 1 each FS .HOLD ANTITHROMB KATHY Ondansetron HCl (Zofran) 4 mg IVP Q6H PRN PRN Reason: Nausea/Vomiting Last Admin: 09/04/18 20:24 Dose: 4 mg Ondansetron HCl (Zofran Odt) 4 mg PO Q6H PRN PRN Reason: Nausea/Vomiting Pantoprazole Sodium (Protonix) 40 mg PO DAILY [facility] Last Admin: 09/06/18 08:20 Dose: 40 mg Senna/Docusate Sodium (Senokot S) 2 tab PO BID [facility] Last Admin: 09/06/18 08:19 Dose: 2 tab Sodium Chloride ([place] Nasal [place] 0.65%) 0 ml EA NARE QIDPRN PRN PRN Reason: Nasal Congestion Spironolactone (Aldactone) 25 mg PO QAM [facility] Last Admin: 09/06/18 08:20 Dose: 25 mg Throat Lozenges (Cepastat Lozenges) 1 shanice PO Q2H PRN PRN Reason: Sore Throat Tizanidine HCl (Zanaflex) 4 mg PO TID PRN PRN Reason: Muscle Spasm Last Admin: 09/05/18 22:59 Dose: 4 mg Tramadol HCl (Ultram) 100 mg PO Q6H PRN PRN Reason: Moderate Pain (4-6) Last Admin: 09/05/18 16:43 Dose: 50 mg Zolpidem Tartrate (Ambien) 5 mg PO HSPRN PRN PRN Reason: Insomnia Last Admin: 09/06/18 00:48 Dose: 5 mg
[2018-09-06] MEDS: traMADol HCl 50 MG TAB PO PRN ×2 (12:01→20:53)
[2018-09-06] MEDS: tiZANidine HCl 4 MG TAB PO PRN (13:56)
[2018-09-06] MEDS: Amitriptyline HCl 25 MG TAB PO SCH (20:51)
[2018-09-06] MEDS: Amlodipine 10 MG TAB PO SCH (20:51)
[2018-09-06] MEDS: Atorvastatin Calcium 20 MG TAB PO SCH (20:52)
[2018-09-07] MEDS: tiZANidine HCl 4 MG TAB PO PRN ×2 (01:27→21:31)
[2018-09-07] MEDS: HYDROcodone/Acetaminophen 5/325 mg Tablet PO PRN ×4 (01:27→23:01)
[2018-09-07] MEDS: CEFAZOLIN 2 GM in Premix Bag 1 BAG IVPB SCH ×3 (01:28→17:34)
[2018-09-07] MEDS: HumaLOG 300 UNITS/3 ML VIAL SC PRN ×3 (06:54→17:40)
[2018-09-07] MEDS: Atenolol 50 MG TAB PO SCH ×2 (09:40→21:31)
[2018-09-07] MEDS: Bupropion 150 MG XL TAB PO SCH (09:43)
[2018-09-07] MEDS: Spironolactone 25 MG TAB PO SCH (09:44)
[2018-09-07] MEDS: Senokot S 8.6-50 MG TAB PO SCH ×2 (09:44→21:31)
[2018-09-07] MEDS: Multivitamin W/ Minerals 1 TAB PO SCH (09:44)
[2018-09-07] MEDS: Doxazosin 2 MG TAB PO SCH (09:47)
[2018-09-07] MEDS ORDERED: Melatonin 3 MG TAB PO PRN (10:22)
--- NOTE | 2018-09-07 10:23 | PDOC.PN ---
- Subjective Encounter Start Date: 09/07/18 Encounter Start Time: 08:50 Patient seen and examined. No new complaints. No overnight events - Objective Resuscitation Status - Order Detail: 09/03/18 18:44 Resuscitation Status Routine Co-Sign Provider: Resuscitation Status: FULL: Full Resuscitation MAR Reviewed: Yes Vital Signs & Weight: Vital Signs (12 hours) Temp Pulse Resp BP Pulse Ox 09/07/18 09:40 86 09/07/18 07:19 97.6 F 86 12 147/79 H 92 L 09/07/18 04:22 97.7 F 84 20 119/72 94 L 09/06/18 23:57 99.1 F 97 20 159/81 H 92 L Weight Weight 185 lb 3.013 oz I&O: 09/06/18 09/07/18 09/08/18 06:59 06:59 06:59 Intake Total 974 Output Total 1550 500 Balance -576 -500 Result Diagrams: 09/03/18 17:25 09/03/18 17:25 Additional Labs: Accuchecks 09/07/18 09/06/18 09/06/18 05:47 20:40 15:30 POC Glucose 233 H 198 H 220 H 09/06/18 11:34 POC Glucose 243 H Phys Exam - Physical Examination Constitutional: NAD HEENT: PERRLA, moist MMs, sclera anicteric Neck: no JVD, supple cervical collar+ Respiratory: no wheezing, no rales, no rhonchi Cardiovascular: RRR, no significant murmur, no rub Gastrointestinal: soft, non-tender, no distention, positive bowel sounds Musculoskeletal: no edema, pulses present Neurological: non-focal, normal sensation, moves all 4 limbs Psychiatric: normal affect, A&O x 3 Skin: no rash, normal turgor Dx/Plan (1) Cervical spinal cord compression Code(s): G95.20 - UNSPECIFIED CORD COMPRESSION Status: Acute (2) Chronic low back pain Code(s): M54.5 - LOW BACK PAIN; G89.29 - OTHER CHRONIC PAIN Status: Chronic (3) Diabetes type 2, controlled Code(s): E11.9 - TYPE 2 DIABETES MELLITUS WITHOUT COMPLICATIONS Status: Chronic (4) BPH (benign prostatic hyperplasia) Code(s): N40.0 - BENIGN PROSTATIC HYPERPLASIA WITHOUT LOWER URINRY TRACT SYMP Status: Chronic (5) CAD (coronary artery disease) Code(s): I25.10 - ATHSCL HEART DISEASE OF [place] CORONARY ARTERY W/O ANG PCTRS Status: Chronic Comment: (6) HTN (hypertension) Code(s): I10 - ESSENTIAL (PRIMARY) HYPERTENSION Status: Chronic (7) Dyslipidemia Code(s): E78.5 - HYPERLIPIDEMIA, UNSPECIFIED Status: Chronic (8) Anxiety and depression Code(s): F41.9 - ANXIETY DISORDER, UNSPECIFIED; F32.9 - MAJOR DEPRESSIVE DISORDER, SINGLE EPISODE, UNSPECIFIED Status: Chronic (9) GERD (gastroesophageal reflux disease) Code(s): K21.9 - GASTRO-ESOPHAGEAL REFLUX DISEASE WITHOUT ESOPHAGITIS Status: Chronic - Plan cont current plan of care, plan discussed w/ family, PT/OT, director of social media marketing * medication reviewed as below * symptomatic treatment * pain controlled with pain meds * await rehab decision * DC ambien and add melaton as per family request * continue PT. Review of Systems - Review of Systems ENT: negative: Ear Pain, Ear Discharge, Nose Pain, Nose Discharge, Nose Congestion, Mouth Pain, Mouth Swelling, Throat Pain, Throat Swelling, Other Respiratory: negative: Cough, Dry, Shortness of Breath, Hemoptysis, SOB with Excertion, Pleuritic Pain, Sputum, Wheezing Cardiovascular: negative: chest pain, palpitations, orthopnea, paroxysmal nocturnal dyspnea, edema, light headedness, other Gastrointestinal: negative: Nausea, Vomiting, Abdominal Pain, Diarrhea, Constipation, Melena, Hematochezia, Other Genitourinary: negative: Dysuria, Frequency, Incontinence, Hematuria, Retention , Other Musculoskeletal: Neck Pain. negative: Shoulder Pain, Arm Pain, Back Pain, Hand Pain, Leg Pain, Foot Pain, Other - Medications/Allergies Allergies/Adverse Reactions: Allergies Allergy/AdvReac Type Severity Reaction Status Date / Time lisinopril Allergy angioedema Verified 01/20/18 12:18 Medications: Current Medications Acetaminophen (Tylenol) 650 mg PO Q4H PRN PRN Reason: Headache/Fever/Mild Pain (1-3) Last Admin: 09/04/18 17:20 Dose: 650 mg Hydrocodone Bitart/Acetaminophen ([place] 5/325) 1 tab PO Q4H PRN PRN Reason: Moderate Pain (4-6) Last Admin: 09/07/18 01:27 Dose: 1 tab Amitriptyline HCl (Elavil) 50 mg PO HS [facility] Last Admin: 09/06/18 20:51 Dose: 50 mg Amlodipine Besylate (Norvasc) 10 mg PO HS [facility] Last Admin: 09/06/18 20:51 Dose: 10 mg Artificial Tears (Tears Naturale) 2 drop EA EYE PRN PRN PRN Reason: Dry Eyes Atenolol (Tenormin) 50 mg PO BID [facility] Last Admin: 09/07/18 09:40 Dose: 50 mg Atorvastatin Calcium (Lipitor) 20 mg PO HS [facility] Last Admin: 09/06/18 20:52 Dose: 20 mg Baclofen (Lioresal) 20 mg PO BIDPRN PRN PRN Reason: Muscle Pain Last Admin: 09/06/18 20:55 Dose: 20 mg Bisacodyl (Dulcolax) 10 mg [place] DAILYPRN PRN PRN Reason: Constipation Bupropion HCl (Wellbutrin Xl) 150 mg PO DAILY [facility] Last Admin: 09/07/18 09:43 Dose: 150 mg Dextrose/Water (Dextrose 50%) 25 gm SLOW IVP PRN PRN PRN Reason: Hypoglycemia Doxazosin Mesylate (Cardura) 2 mg PO DAILY [facility] Last Admin: 09/07/18 09:47 Dose: 2 mg Glipizide (Glucotrol Xl) 10 mg PO DAILY [facility] Last Admin: 09/07/18 09:43 Dose: 10 mg Glucagon (Glucagon) 1 mg IM PRN PRN PRN Reason: Hypoglycemia Guaifenesin (Robitussin Sf) 200 mg PO Q4H PRN PRN Reason: Cough Hydralazine HCl (Apresoline) 10 mg SLOW IVP Q4H PRN PRN Reason: SBP > 180 and HR < 70 Dextrose/Water (D5w) 1,000 mls @ 0 mls/hr IV .Q0M PRN PRN Reason: Hypoglycemia Cefazolin Sodium/Dextrose 2 gm (/ Device) 50 mls @ 100 mls/hr IVPB Q8H [facility] Last Admin: 09/07/18 09:45 Dose: 50 mls Insulin Human Lispro (Humalog) 0 units SC .MODERATE SLIDING SC PRN PRN Reason: Moderate Correctional Scale Last Admin: 09/07/18 06:54 Dose: 4 unit Insulin Human Lispro (Humalog) 0 units SC .BEDTIME SLIDING SC PRN PRN Reason: Bedtime Correctional Scale Last Admin: 09/05/18 20:59 Dose: 2 unit Iron/Minerals/Multivitamins (Theragran M) 1 tab PO DAILY [facility] Last Admin: 09/07/18 09:44 Dose: 1 tab Loperamide HCl (Imodium) 2 mg PO PRN PRN PRN Reason: Diarrhea/Loose Stools Loratadine (Claritin) 10 mg PO DAILYPRN PRN PRN Reason: Sinus Symptoms Morphine Sulfate (Morphine) 2 mg SLOW IVP Q1H PRN PRN Reason: Severe Pain (7-10) Last Admin: 09/06/18 15:38 Dose: 2 mg Hold All (Antithrombotics) 1 each FS .HOLD ANTITHROMB [facility] Ondansetron HCl (Zofran) 4 mg IVP Q6H PRN PRN Reason: Nausea/Vomiting Last Admin: 09/04/18 20:24 Dose: 4 mg Ondansetron HCl (Zofran Odt) 4 mg PO Q6H PRN PRN Reason: Nausea/Vomiting Pantoprazole Sodium (Protonix) 40 mg PO DAILY [facility] Last Admin: 09/07/18 09:44 Dose: 40 mg Senna/Docusate Sodium (Senokot S) 2 tab PO BID [facility] Last Admin: 09/07/18 09:44 Dose: 2 tab Sodium Chloride ([place] Nasal [place] 0.65%) 0 ml EA NARE QIDPRN PRN PRN Reason: Nasal Congestion Spironolactone (Aldactone) 25 mg PO QAM [facility] Last Admin: 09/07/18 09:44 Dose: 25 mg Throat Lozenges (Cepastat Lozenges) 1 shanice PO Q2H PRN PRN Reason: Sore Throat Tizanidine HCl (Zanaflex) 4 mg PO TID PRN PRN Reason: Muscle Spasm Last Admin: 09/07/18 01:27 Dose: 4 mg Tramadol HCl (Ultram) 100 mg PO Q6H PRN PRN Reason: Moderate Pain (4-6) Last Admin: 09/06/18 20:53 Dose: 50 mg Zolpidem Tartrate (Ambien) 5 mg PO HSPRN PRN PRN Reason: Insomnia Last Admin: 09/06/18 00:48 Dose: 5 mg
--- NOTE | 2018-09-07 11:29 | PRG ---
DATE OF SERVICE: 09/07/2018 This is Henry Ornelas PA-C dictating a report for Anthony Giordano MD. Mr. Vo is postoperative day #2, having undergone posterior cervical laminectomies and fusion. The patient was having significant posterior neck pain today. He is on two muscle relaxants. 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 He has stood with therapy, but his balance continues to be altered. He is without a cervical spine collar. On exam, he moves all the extremities well and has again improved in function of the bilateral hands. The next course is inpatient rehab and Case Management is working on getting him placed. He is stable for discharge. I have had a long discussion with both the patient and his daughter regard to increase mobility and pain control, although that should improve with time. Overall, I believe that he is doing very well. We will work on pain control. Job ID: [id number]
[2018-09-07] MEDS: Baclofen 10 MG TAB PO PRN (13:13)
[2018-09-07] MEDS: Amitriptyline HCl 25 MG TAB PO SCH (21:30)
[2018-09-07] MEDS: Amlodipine 10 MG TAB PO SCH (21:30)
[2018-09-07] MEDS: Atorvastatin Calcium 20 MG TAB PO SCH (21:31)
[2018-09-08] MEDS: CEFAZOLIN 2 GM in Premix Bag 1 BAG IVPB SCH ×2 (00:55→11:08)
[2018-09-08] MEDS: HumaLOG 300 UNITS/3 ML VIAL SC PRN ×3 (06:48→18:10)
[2018-09-08] MEDS: Doxazosin 2 MG TAB PO SCH (08:21)
[2018-09-08] MEDS: Atenolol 50 MG TAB PO SCH (08:21)
[2018-09-08] MEDS: Bupropion 150 MG XL TAB PO SCH (08:21)
[2018-09-08] MEDS: Multivitamin W/ Minerals 1 TAB PO SCH (08:21)
[2018-09-08] MEDS: Baclofen 10 MG TAB PO PRN (08:21)
[2018-09-08] MEDS: Spironolactone 25 MG TAB PO SCH (08:22)
[2018-09-08] MEDS: HYDROcodone/Acetaminophen 5/325 mg Tablet PO PRN ×3 (08:22→18:09)
[2018-09-08] MEDS: Senokot S 8.6-50 MG TAB PO SCH (08:22)
[2018-09-08] MEDS ORDERED: Gabapentin 300 MG CAP PO SCH (09:45)
[2018-09-08] MEDS: Polyethylene Glycol 3350 17 GM Packet PO SCH (09:55)
--- NOTE | 2018-09-08 11:37 | PDOC.PN ---
- Subjective Encounter Start Date: 09/08/18 Encounter Start Time: 09:15 Patient seen and examined. today he has constipation, he has neck and back pain. No overnight events - Objective Resuscitation Status - Order Detail: 09/03/18 18:44 Resuscitation Status Routine Co-Sign Provider: Resuscitation Status: FULL: Full Resuscitation MAR Reviewed: Yes Vital Signs & Weight: Vital Signs (12 hours) Temp Pulse Resp BP BP Pulse Ox 09/08/18 08:21 82 160/82 H 09/08/18 07:45 98.2 F 82 18 160/82 H 92 L 09/08/18 04:38 97.9 F 77 20 122/74 93 L 09/07/18 23:56 97.8 F 84 20 132/76 93 L Weight Weight 185 lb 3.013 oz I&O: 09/07/18 09/08/18 09/09/18 06:59 06:59 06:59 Intake Total 1060 Output Total 500 1175 Balance -500 -115 Result Diagrams: 09/03/18 17:25 09/03/18 17:25 Additional Labs: Accuchecks 09/08/18 09/07/18 09/07/18 05:45 20:47 16:03 POC Glucose 215 H 166 H 244 H Phys Exam - Physical Examination Constitutional: NAD HEENT: PERRLA, moist MMs, sclera anicteric Neck: no JVD, supple Respiratory: no wheezing, no rales, no rhonchi Cardiovascular: RRR, no significant murmur, no rub Gastrointestinal: soft, non-tender, no distention, positive bowel sounds Musculoskeletal: no edema, pulses present Neurological: non-focal, normal sensation Lymphatic: no nodes Psychiatric: normal affect, A&O x 3 Skin: no rash, normal turgor Dx/Plan (1) Cervical spinal cord compression Code(s): G95.20 - UNSPECIFIED CORD COMPRESSION Status: Acute (2) Chronic low back pain Code(s): M54.5 - LOW BACK PAIN; G89.29 - OTHER CHRONIC PAIN Status: Chronic (3) Diabetes type 2, controlled Code(s): E11.9 - TYPE 2 DIABETES MELLITUS WITHOUT COMPLICATIONS Status: Chronic (4) BPH (benign prostatic hyperplasia) Code(s): N40.0 - BENIGN PROSTATIC HYPERPLASIA WITHOUT LOWER URINRY TRACT SYMP Status: Chronic (5) CAD (coronary artery disease) Code(s): I25.10 - ATHSCL HEART DISEASE OF [place] CORONARY ARTERY W/O ANG PCTRS Status: Chronic Comment: (6) HTN (hypertension) Code(s): I10 - ESSENTIAL (PRIMARY) HYPERTENSION Status: Chronic (7) Dyslipidemia Code(s): E78.5 - HYPERLIPIDEMIA, UNSPECIFIED Status: Chronic (8) Anxiety and depression Code(s): F41.9 - ANXIETY DISORDER, UNSPECIFIED; F32.9 - MAJOR DEPRESSIVE DISORDER, SINGLE EPISODE, UNSPECIFIED Status: Chronic (9) GERD (gastroesophageal reflux disease) Code(s): K21.9 - GASTRO-ESOPHAGEAL REFLUX DISEASE WITHOUT ESOPHAGITIS Status: Chronic - Plan cont current plan of care, plan discussed w/ family, PT/OT, social contact worker * medication reviewed as below * symptomatic treatment * pain control * await rehab placement * stool softener * post operative care * discussed with daughter. Review of Systems - Review of Systems Eyes: negative: Pain, Vision Change, Conjunctivae Inflammation, Eyelid Inflammation, Redness, Other ENT: negative: Ear Pain, Ear Discharge, Nose Pain, Nose Discharge, Nose Congestion, Mouth Pain, Mouth Swelling, Throat Pain, Throat Swelling, Other Respiratory: negative: Cough, Dry, Shortness of Breath, Hemoptysis, SOB with Excertion, Pleuritic Pain, Sputum, Wheezing Cardiovascular: negative: chest pain, palpitations, orthopnea, paroxysmal nocturnal dyspnea, edema, light headedness, other Gastrointestinal: Constipation. negative: Nausea, Vomiting, Abdominal Pain, Diarrhea, Melena, Hematochezia, Other Genitourinary: negative: Dysuria, Frequency, Incontinence, Hematuria, Retention , Other Musculoskeletal: Neck Pain, Back Pain. negative: Shoulder Pain, Arm Pain, Hand Pain, Leg Pain, Foot Pain, Other Skin: negative: Rash, Lesions, Pradeep, Bruising, Other - Medications/Allergies Allergies/Adverse Reactions: Allergies Allergy/AdvReac Type Severity Reaction Status Date / Time lisinopril Allergy angioedema Verified 01/20/18 12:18 Medications: Current Medications Acetaminophen (Tylenol) 650 mg PO Q4H PRN PRN Reason: Headache/Fever/Mild Pain (1-3) Last Admin: 09/04/18 17:20 Dose: 650 mg Hydrocodone Bitart/Acetaminophen ([place] 5/325) 1 tab PO Q4H PRN PRN Reason: Moderate Pain (4-6) Last Admin: 09/08/18 08:22 Dose: 1 tab Amitriptyline HCl (Elavil) 50 mg PO HS [facility] Last Admin: 09/07/18 21:30 Dose: 50 mg Amlodipine Besylate (Norvasc) 10 mg PO HS [facility] Last Admin: 09/07/18 21:30 Dose: 10 mg Artificial Tears (Tears Naturale) 2 drop EA EYE PRN PRN PRN Reason: Dry Eyes Atenolol (Tenormin) 50 mg PO BID [facility] Last Admin: 09/08/18 08:21 Dose: 50 mg Atorvastatin Calcium (Lipitor) 20 mg PO HS [facility] Last Admin: 09/07/18 21:31 Dose: 20 mg Baclofen (Lioresal) 20 mg PO BIDPRN PRN PRN Reason: Muscle Pain Last Admin: 09/08/18 08:21 Dose: 20 mg Bisacodyl (Dulcolax) 10 mg [place] DAILYPRN PRN PRN Reason: Constipation Bupropion HCl (Wellbutrin Xl) 150 mg PO DAILY [facility] Last Admin: 09/08/18 08:21 Dose: 150 mg Dextrose/Water (Dextrose 50%) 25 gm SLOW IVP PRN PRN PRN Reason: Hypoglycemia Doxazosin Mesylate (Cardura) 2 mg PO DAILY [facility] Last Admin: 09/08/18 08:21 Dose: 2 mg Gabapentin (Neurontin) 300 mg PO BID [facility] Gabapentin (Neurontin) 300 mg PO NOW [facility] Stop: 09/08/18 11:45 Last Admin: 09/08/18 09:55 Dose: 300 mg Glipizide (Glucotrol Xl) 10 mg PO DAILY [facility] Last Admin: 09/08/18 08:22 Dose: 10 mg Glucagon (Glucagon) 1 mg IM PRN PRN PRN Reason: Hypoglycemia Guaifenesin (Robitussin Sf) 200 mg PO Q4H PRN PRN Reason: Cough Hydralazine HCl (Apresoline) 10 mg SLOW IVP Q4H PRN PRN Reason: SBP > 180 and HR < 70 Dextrose/Water (D5w) 1,000 mls @ 0 mls/hr IV .Q0M PRN PRN Reason: Hypoglycemia Insulin Human Lispro (Humalog) 0 units SC .MODERATE SLIDING SC PRN PRN Reason: Moderate Correctional Scale Last Admin: 09/08/18 06:48 Dose: 4 unit Insulin Human Lispro (Humalog) 0 units SC .BEDTIME SLIDING SC PRN PRN Reason: Bedtime Correctional Scale Last Admin: 09/05/18 20:59 Dose: 2 unit Iron/Minerals/Multivitamins (Theragran M) 1 tab PO DAILY [facility] Last Admin: 09/08/18 08:21 Dose: 1 tab Loperamide HCl (Imodium) 2 mg PO PRN PRN PRN Reason: Diarrhea/Loose Stools Loratadine (Claritin) 10 mg PO DAILYPRN PRN PRN Reason: Sinus Symptoms Melatonin (Melatonin) 3 mg PO HS PRN PRN Reason: Insomnia Last Admin: 09/07/18 23:00 Dose: 3 mg Morphine Sulfate (Morphine) 2 mg SLOW IVP Q1H PRN PRN Reason: Severe Pain (7-10) Last Admin: 09/06/18 15:38 Dose: 2 mg Hold All (Antithrombotics) 1 each FS .HOLD ANTITHROMB [facility] Ondansetron HCl (Zofran) 4 mg IVP Q6H PRN PRN Reason: Nausea/Vomiting Last Admin: 09/04/18 20:24 Dose: 4 mg Ondansetron HCl (Zofran Odt) 4 mg PO Q6H PRN PRN Reason: Nausea/Vomiting Pantoprazole Sodium (Protonix) 40 mg PO DAILY [facility] Last Admin: 09/08/18 08:22 Dose: 40 mg Polyethylene Glycol (Miralax) 17 gm PO DAILY [facility] Last Admin: 09/08/18 09:55 Dose: 17 gm Senna/Docusate Sodium (Senokot S) 2 tab PO BID [facility] Last Admin: 09/08/18 08:22 Dose: 2 tab Sodium Chloride ([place] Nasal [place] 0.65%) 0 ml EA NARE QIDPRN PRN PRN Reason: Nasal Congestion Spironolactone (Aldactone) 25 mg PO QAM [facility] Last Admin: 09/08/18 08:22 Dose: 25 mg Throat Lozenges (Cepastat Lozenges) 1 shanice PO Q2H PRN PRN Reason: Sore Throat Tizanidine HCl (Zanaflex) 4 mg PO TID PRN PRN Reason: Muscle Spasm Last Admin: 09/07/18 21:31 Dose: 4 mg Tramadol HCl (Ultram) 100 mg PO Q6H PRN PRN Reason: Moderate Pain (4-6) Last Admin: 09/06/18 20:53 Dose: 50 mg
--- NOTE | 2018-09-08 19:53 | PRG ---
DATE OF SERVICE: 09/08/2018 This is Henry Ornelas PA-C dictating a report for Anthony Giordano MD. This is a postoperative recheck. Mr. Vo is postoperative day #3, having undergone multilevel posterior laminectomies and fusion. The main issue today for the patient is pain control. He complains of pain into the back of the neck and then into the right upper extremity, mainly into the biceps and the inner forearm. He has also had some swelling into the left trapezius, but has good strength in all the extremities. He appears to have no significant neurologic deficit in the left upper extremity, given the swelling. He has good hand intrinsic strength with mild weakness, improved from his postoperative exam. I have asked that he continue to work with therapies and that his pain will improve with time. I have also suggested ice to the incision as well as to the swelling. I have also added gabapentin to his pain control regimen, but I do not want him on Toradol, given his already thin blood from previous Plavix and aspirin use. We will continue to monitor him, but hopefully, he will be ready for discharge in the next day or so, and he really is progressing well in regard to his neurologic status. We will just work on better pain control. I should note that I did see the patient this morning at 8 a.m. and this is a late dictation. Job ID: [id number]
[2018-09-08] MEDS ORDERED: Baclofen 10 MG TAB ONE (22:39)
[2018-09-08] MEDS ORDERED: HYDROcodone/Acetaminophen 5/325 mg Tablet ONE (22:40)
[2018-09-09] MEDS: Atenolol 50 MG TAB PO SCH ×3 (10:15→22:19)
[2018-09-09] MEDS: Senokot S 8.6-50 MG TAB PO SCH ×3 (10:15→22:20)
[2018-09-09] MEDS: Bupropion 150 MG XL TAB PO SCH (10:15)
[2018-09-09] MEDS: Spironolactone 25 MG TAB PO SCH (10:16)
[2018-09-09] MEDS: Multivitamin W/ Minerals 1 TAB PO SCH (10:16)
[2018-09-09] MEDS: Polyethylene Glycol 3350 17 GM Packet PO SCH (10:16)
[2018-09-09] MEDS: Gabapentin 300 MG CAP PO SCH ×3 (10:16→22:20)
[2018-09-09] MEDS: Doxazosin 2 MG TAB PO SCH (10:17)
[2018-09-09] MEDS: HYDROcodone/Acetaminophen 5/325 mg Tablet PO PRN (10:26)
--- NOTE | 2018-09-09 11:43 | PDOC.PN ---
- Subjective Encounter Start Date: 09/09/18 Encounter Start Time: 08:15 Patient seen and examined. No new complaints. No overnight events pt feels better today, he had BM yesterday, his pain controlled - Objective Resuscitation Status - Order Detail: 09/03/18 18:44 Resuscitation Status Routine Co-Sign Provider: Resuscitation Status: FULL: Full Resuscitation MAR Reviewed: Yes Vital Signs & Weight: Vital Signs (12 hours) Pulse BP 09/09/18 10:15 81 138/80 Weight Weight 185 lb 3.013 oz I&O: 09/08/18 09/09/18 09/10/18 06:59 06:59 06:59 Intake Total 1060 1252 Output Total 1175 Balance -115 1252 Result Diagrams: 09/03/18 17:25 09/03/18 17:25 Additional Labs: Accuchecks 09/09/18 09/09/18 09/09/18 11:32 05:46 00:18 POC Glucose 333 H 198 H 240 H 09/08/18 09/08/18 20:34 15:43 POC Glucose 250 H 245 H Phys Exam - Physical Examination Constitutional: NAD HEENT: PERRLA, moist MMs, sclera anicteric Neck: no JVD, supple Respiratory: no wheezing, no rales, no rhonchi Cardiovascular: RRR, no significant murmur, no rub Gastrointestinal: soft, non-tender, no distention, positive bowel sounds Musculoskeletal: no edema, pulses present Neurological: non-focal, normal sensation Lymphatic: no nodes Psychiatric: normal affect, A&O x 3 Skin: no rash, normal turgor Dx/Plan (1) Cervical spinal cord compression Code(s): G95.20 - UNSPECIFIED CORD COMPRESSION Status: Acute Comment: s/p surgical repair (2) Chronic low back pain Code(s): M54.5 - LOW BACK PAIN; G89.29 - OTHER CHRONIC PAIN Status: Chronic (3) Diabetes type 2, controlled Code(s): E11.9 - TYPE 2 DIABETES MELLITUS WITHOUT COMPLICATIONS Status: Chronic (4) BPH (benign prostatic hyperplasia) Code(s): N40.0 - BENIGN PROSTATIC HYPERPLASIA WITHOUT LOWER URINRY TRACT SYMP Status: Chronic (5) CAD (coronary artery disease) Code(s): I25.10 - ATHSCL HEART DISEASE OF [place] CORONARY ARTERY W/O ANG PCTRS Status: Chronic Comment: (6) HTN (hypertension) Code(s): I10 - ESSENTIAL (PRIMARY) HYPERTENSION Status: Chronic (7) Dyslipidemia Code(s): E78.5 - HYPERLIPIDEMIA, UNSPECIFIED Status: Chronic (8) Anxiety and depression Code(s): F41.9 - ANXIETY DISORDER, UNSPECIFIED; F32.9 - MAJOR DEPRESSIVE DISORDER, SINGLE EPISODE, UNSPECIFIED Status: Chronic (9) GERD (gastroesophageal reflux disease) Code(s): K21.9 - GASTRO-ESOPHAGEAL REFLUX DISEASE WITHOUT ESOPHAGITIS Status: Chronic - Plan cont current plan of care, plan discussed w/ family, PT/OT, child protective services social worker * at this point he is stable medically with his home meds * his pain is controlled with current pain meds * his weakness and movement has been improving * medication reviewed as below * symptomatic treatment * discussed with daughter * await rehab approval. Review of Systems - Review of Systems Eyes: negative: Pain, Vision Change, Conjunctivae Inflammation, Eyelid Inflammation, Redness, Other ENT: negative: Ear Pain, Ear Discharge, Nose Pain, Nose Discharge, Nose Congestion, Mouth Pain, Mouth Swelling, Throat Pain, Throat Swelling, Other Respiratory: negative: Cough, Dry, Shortness of Breath, Hemoptysis, SOB with Excertion, Pleuritic Pain, Sputum, Wheezing Cardiovascular: negative: chest pain, palpitations, orthopnea, paroxysmal nocturnal dyspnea, edema, light headedness, other Gastrointestinal: negative: Nausea, Vomiting, Abdominal Pain, Diarrhea, Constipation, Melena, Hematochezia, Other Genitourinary: negative: Dysuria, Frequency, Incontinence, Hematuria, Retention , Other Musculoskeletal: Neck Pain, Back Pain. negative: Shoulder Pain, Arm Pain, Hand Pain, Leg Pain, Foot Pain, Other - Medications/Allergies Allergies/Adverse Reactions: Allergies Allergy/AdvReac Type Severity Reaction Status Date / Time lisinopril Allergy angioedema Verified 01/20/18 12:18 Medications: Current Medications Acetaminophen (Tylenol) 650 mg PO Q4H PRN PRN Reason: Headache/Fever/Mild Pain (1-3) Last Admin: 09/04/18 17:20 Dose: 650 mg Hydrocodone Bitart/Acetaminophen ([place] 5/325) 1 tab PO Q4H PRN PRN Reason: Moderate Pain (4-6) Last Admin: 09/09/18 10:26 Dose: 1 tab Amitriptyline HCl (Elavil) 50 mg PO HS [facility] Last Admin: 09/07/18 21:30 Dose: 50 mg Amlodipine Besylate (Norvasc) 10 mg PO HS [facility] Last Admin: 09/07/18 21:30 Dose: 10 mg Artificial Tears (Tears Naturale) 2 drop EA EYE PRN PRN PRN Reason: Dry Eyes Atenolol (Tenormin) 50 mg PO BID [facility] Last Admin: 09/09/18 10:15 Dose: 50 mg Atorvastatin Calcium (Lipitor) 20 mg PO HS [facility] Last Admin: 09/07/18 21:31 Dose: 20 mg Baclofen (Lioresal) 20 mg PO BIDPRN PRN PRN Reason: Muscle Pain Last Admin: 09/08/18 08:21 Dose: 20 mg Bisacodyl (Dulcolax) 10 mg [place] DAILYPRN PRN PRN Reason: Constipation Bupropion HCl (Wellbutrin Xl) 150 mg PO DAILY [facility] Last Admin: 09/09/18 10:15 Dose: 150 mg Dextrose/Water (Dextrose 50%) 25 gm SLOW IVP PRN PRN PRN Reason: Hypoglycemia Doxazosin Mesylate (Cardura) 2 mg PO DAILY [facility] Last Admin: 09/09/18 10:17 Dose: 2 mg Gabapentin (Neurontin) 300 mg PO BID [facility] Last Admin: 09/09/18 10:16 Dose: 300 mg Glipizide (Glucotrol Xl) 10 mg PO DAILY [facility] Last Admin: 09/09/18 10:16 Dose: 10 mg Glucagon (Glucagon) 1 mg IM PRN PRN PRN Reason: Hypoglycemia Guaifenesin (Robitussin Sf) 200 mg PO Q4H PRN PRN Reason: Cough Hydralazine HCl (Apresoline) 10 mg SLOW IVP Q4H PRN PRN Reason: SBP > 180 and HR < 70 Dextrose/Water (D5w) 1,000 mls @ 0 mls/hr IV .Q0M PRN PRN Reason: Hypoglycemia Insulin Human Lispro (Humalog) 0 units SC .MODERATE SLIDING SC PRN PRN Reason: Moderate Correctional Scale Last Admin: 09/08/18 18:10 Dose: 4 unit Insulin Human Lispro (Humalog) 0 units SC .BEDTIME SLIDING SC PRN PRN Reason: Bedtime Correctional Scale Last Admin: 09/05/18 20:59 Dose: 2 unit Iron/Minerals/Multivitamins (Theragran M) 1 tab PO DAILY [facility] Last Admin: 09/09/18 10:16 Dose: 1 tab Loperamide HCl (Imodium) 2 mg PO PRN PRN PRN Reason: Diarrhea/Loose Stools Loratadine (Claritin) 10 mg PO DAILYPRN PRN PRN Reason: Sinus Symptoms Melatonin (Melatonin) 3 mg PO HS PRN PRN Reason: Insomnia Last Admin: 09/07/18 23:00 Dose: 3 mg Morphine Sulfate (Morphine) 2 mg SLOW IVP Q1H PRN PRN Reason: Severe Pain (7-10) Last Admin: 09/06/18 15:38 Dose: 2 mg Hold All (Antithrombotics) 1 each FS .HOLD ANTITHROMB [facility] Ondansetron HCl (Zofran) 4 mg IVP Q6H PRN PRN Reason: Nausea/Vomiting Last Admin: 09/04/18 20:24 Dose: 4 mg Ondansetron HCl (Zofran Odt) 4 mg PO Q6H PRN PRN Reason: Nausea/Vomiting Pantoprazole Sodium (Protonix) 40 mg PO DAILY [facility] Last Admin: 09/09/18 10:16 Dose: 40 mg Polyethylene Glycol (Miralax) 17 gm PO DAILY [facility] Last Admin: 09/09/18 10:16 Dose: 17 gm Senna/Docusate Sodium (Senokot S) 2 tab PO BID [facility] Last Admin: 09/09/18 10:15 Dose: 2 tab Sodium Chloride ([place] Nasal [place] 0.65%) 0 ml EA NARE QIDPRN PRN PRN Reason: Nasal Congestion Spironolactone (Aldactone) 25 mg PO QAM [facility] Last Admin: 09/09/18 10:16 Dose: 25 mg Throat Lozenges (Cepastat Lozenges) 1 shanice PO Q2H PRN PRN Reason: Sore Throat Tizanidine HCl (Zanaflex) 4 mg PO TID PRN PRN Reason: Muscle Spasm Last Admin: 09/07/18 21:31 Dose: 4 mg Tramadol HCl (Ultram) 100 mg PO Q6H PRN PRN Reason: Moderate Pain (4-6) Last Admin: 09/06/18 20:53 Dose: 50 mg
--- NOTE | 2018-09-09 12:40 | PRG ---
DATE OF SERVICE: 09/09/2018 This is Henry Ornelas PA-C dictating a report for Anthony Giordano MD. Mr. Vo is postoperative day #5, having undergone multilevel posterior cervical laminectomies and fusion. The patient appears to be slightly improved in regard to his pain management today. He has some continued right deltoid and biceps pain; however, this has improved slightly with gabapentin. He was up, walking with therapies yesterday. Swelling into the left trapezius has improved. He continues with excellent strength really in the bilateral upper extremities and good strength in the bilateral lower extremities and he again remains improved neurologically due to his strength exam. The patient is safe for discharge from a neurosurgical perspective and his MOT paperwork has been completed. Dr. Giordano has been in touch with Case Management and they are working diligently to get the patient discharged today. He should wear his collar anytime he is out of bed, but otherwise may remove when he is in bed. We will arrange followup in our office. Job ID: [id number]
[2018-09-09] MEDS: Baclofen 10 MG TAB PO PRN (13:10)
[2018-09-09] MEDS: HumaLOG 300 UNITS/3 ML VIAL SC PRN ×3 (14:28→21:54)
[2018-09-09] MEDS: Atorvastatin Calcium 20 MG TAB PO SCH ×2 (20:47→22:20)
[2018-09-09] MEDS: Amitriptyline HCl 25 MG TAB PO SCH ×2 (20:47→22:19)
[2018-09-09] MEDS: Amlodipine 10 MG TAB PO SCH ×2 (20:48→22:19)
[2018-09-10] MEDS: traMADol HCl 50 MG TAB PO PRN ×2 (01:14→16:55)
[2018-09-10] MEDS: Baclofen 10 MG TAB PO PRN ×2 (01:14→07:54)
[2018-09-10] MEDS: HumaLOG 300 UNITS/3 ML VIAL SC PRN ×3 (06:14→16:56)
--- NOTE | 2018-09-10 07:34 | PRG ---
DATE OF SERVICE: 09/10/2018 The patient is postoperative day #6, status post multilevel posterior cervical laminectomies and fusion. The patient reports that his pain is improving as well as his strength gradually with time. They have plans for inpatient rehabilitation at discharge. He has no complaints this morning during our discussion. The patient is awake, alert, in no acute distress. He has free active range of motion of all extremities. He seems to have 5/5 strength throughout. His incision is dry and intact. I feel that the patient is appropriate for dismissal to rehab whenever a bed is available. We discussed home care precautions. He will follow up with Dr. Giordano in 2 weeks. I anticipate he can go to rehab later today when bed is available. Job ID: [id number] [facility]
[2018-09-10] MEDS: Polyethylene Glycol 3350 17 GM Packet PO SCH (07:52)
[2018-09-10] MEDS: Senokot S 8.6-50 MG TAB PO SCH (07:53)
[2018-09-10] MEDS: metFORMIN 500 MG TAB PO SCH ×2 (07:53→16:54)
[2018-09-10] MEDS: Multivitamin W/ Minerals 1 TAB PO SCH (07:53)
[2018-09-10] MEDS: Bupropion 150 MG XL TAB PO SCH (07:54)
[2018-09-10] MEDS: Gabapentin 300 MG CAP PO SCH (07:54)
[2018-09-10] MEDS: Spironolactone 25 MG TAB PO SCH (07:54)
[2018-09-10] MEDS: Doxazosin 2 MG TAB PO SCH (07:54)
[2018-09-10] MEDS: Atenolol 50 MG TAB PO SCH (07:54)
[2018-09-10] MEDS: HYDROcodone/Acetaminophen 5/325 mg Tablet PO PRN ×3 (07:57→20:06)
--- NOTE | 2018-09-10 11:59 | DIS ---
DATE OF ADMISSION: 09/03/2018 DATE OF DISCHARGE: 09/10/2018 PRIMARY CARE PHYSICIAN: [facility] Call Admission. DISCHARGE DISPOSITION: Rehab. PRIMARY DISCHARGE DIAGNOSIS: Cervical cord compression, status post surgical repair. The patient underwent laminectomy, facetectomy, and foraminectomy. SECONDARY DISCHARGE DIAGNOSES: 1. Anxiety and depression. 2. Benign enlargement of prostate. 3. Coronary artery disease. 4. Diabetes, type 2. 5. Chronic low back pain. 6. Lumbar radiculopathy. 7. Dyslipidemia. 8. Gastroesophageal reflux disease. 9. Hypertension. PRIMARY PROCEDURE/OPERATION: The patient underwent C3, C4, C5 laminectomy, partial facetectomy, foraminectomy, posterolateral fusion. RADIOLOGICAL INVESTIGATION: Chest x-ray was normal. CT cervical spine was done, which showed severe cord compression. SIGNIFICANT LABORATORY DATA: WBC 6.0, hemoglobin 13.1, and platelet 154. INR 1.0. Sodium 140, potassium 4.0, BUN 15, creatinine 0.76, calcium 9.6, AST 18, ALT 19, alkaline phosphatase 57, and albumin 4.4. DISCHARGE MEDICATIONS: The patient will continue all his previous medication. 1. Buprenorphine one patch every 7 days. 2. Amitriptyline 50 mg p.o. daily. 3. Amlodipine 10 mg daily. 4. Atenolol 50 mg p.o. b.i.d. 5. Lipitor 20 mg p.o. daily. 6. Bupropion 150 mg p.o. daily. 7. Celecoxib 200 mg p.o. daily. 8. Doxazosin 2 mg p.o. daily. 9. Glipizide ER 10 mg p.o. daily. 10. Metformin 500 mg p.o. t.i.d. 11. Multivitamin one tablet p.o. daily. 12. Omeprazole 20 mg p.o. daily. 13. Tramadol 50 mg q.i.d. p.r.n. 14. Baclofen 20 mg p.o. b.i.d. p.r.n. 15. Aldactone 25 mg p.o. daily. Aspirin will be started next week after 1 week from surgery and Plavix will be started when Neurosurgeon okay, probably 2 weeks after surgery. CONTRAINDICATION: None. CODE STATUS: Full code. INPATIENT CONSULT: Dr. Giordano was Primary. Sound Team was consulted for medical comanagement. ALLERGIES: LISINOPRIL. DISCHARGE PLAN: Posthospital, the patient is planned for discharge to rehab facility and subsequently, the patient will follow up with Dr. Giordano. HOSPITAL COURSE: A 63-year-old male, who has chronic lumbar radiculopathy and he had chronic low back pain. The patient was also having difficulty ambulation and he was becoming more and more weak and more and more falling at workplace and at home and that is why his pain doctor arranged outpatient MRI of thoracic, lumbar, and cervical spine. The patient was found with cervical cord compression. CT cervical spine was also obtained and the patient was sent to ER for admission. The patient was admitted under Neurosurgeon. Sound Team was consulted for preoperative clearance and medical management. We cleared him for surgery. His chest x-ray was normal. His EKG was unremarkable. The patient underwent cervical spine surgery by Dr. Giordano and postoperatively, he had significant improvement in his motor strength as well as movement of upper and lower extremity. While in hospital, his pain was controlled with pain medication. He was hemodynamically stable. We continued all his previous medication. His blood sugar is little bit high that we attributed from his stress response from pain and the patient expressed to follow up with primary care physician for diabetes management after discharge from rehab. The patient was needing inpatient rehabilitation for PT/OT and that is why with help of case planner, we arranged rehab placement on discharge. His insurance has been approved. At this point, the patient is medically stable. He will follow up with Neurosurgeon after discharge as well as primary care physician. On discharge, pain medication will defer to Primary Team. He will have everything as above except aspirin and Plavix, which will be started 1 week or 2 weeks later as the Neurosurgeon clears him. PHYSICAL EXAMINATION: I have seen and examined the patient at the bedside today. VITAL SIGNS: Currently, temperature 97.6, pulse 80, respiratory rate 16, saturation 95% on room air, and blood pressure 132/78. Weight 185 pounds. GENERAL: The patient is currently alert, awake, in no obvious acute distress. HEENT: Head; normocephalic, atraumatic. Eyes; pupils are round and reactive to light. Extraocular muscle intact. ENT; oropharynx within normal limits. LUNGS: Clear to auscultation without any rhonchi or rales. CARDIAC: S1 and S2 appears regular. No murmur. No gallop. No rub. ABDOMEN: Soft and benign. EXTREMITIES: No edema. NEUROLOGIC: Nonfocal examination. The patient is improving his strength from all 4 limbs. The patient is medically stable for discharge and we will sign off. Job ID: [id number]
--- NOTE | 2018-09-10 12:04 | PDOC.PN ---
- Subjective Encounter Start Date: 09/10/18 Encounter Start Time: 08:15 Patient seen and examined. No new complaints. No overnight events - Objective Resuscitation Status - Order Detail: 09/03/18 18:44 Resuscitation Status Routine Co-Sign Provider: Resuscitation Status: FULL: Full Resuscitation MAR Reviewed: Yes Vital Signs & Weight: Vital Signs (12 hours) Temp Pulse Resp BP Pulse Ox 09/10/18 11:40 98.3 F 77 16 129/80 92 L 09/10/18 07:55 97.6 F 80 16 132/78 95 09/10/18 04:00 98.2 F 80 14 138/71 96 09/10/18 00:15 98.2 F 85 14 143/79 H 93 L Weight Weight 185 lb 3.013 oz I&O: 09/09/18 09/10/18 09/11/18 06:59 06:59 06:59 Intake Total 1252 500 Output Total 925 Balance 1252 -425 Result Diagrams: 09/03/18 17:25 09/03/18 17:25 Additional Labs: Accuchecks 09/10/18 09/10/18 09/09/18 10:12 06:04 21:10 POC Glucose 249 H 244 H 267 H 09/09/18 15:52 POC Glucose 279 H Phys Exam - Physical Examination Constitutional: NAD HEENT: PERRLA, moist MMs, sclera anicteric Neck: no JVD, supple Respiratory: no wheezing, no rales, no rhonchi Cardiovascular: RRR, no significant murmur, no rub Gastrointestinal: soft, non-tender, no distention, positive bowel sounds Musculoskeletal: no edema, pulses present Neurological: non-focal, normal sensation Lymphatic: no nodes Psychiatric: normal affect, A&O x 3 Skin: no rash, normal turgor Dx/Plan (1) Cervical spinal cord compression Code(s): G95.20 - UNSPECIFIED CORD COMPRESSION Status: Acute Comment: s/p surgical repair (2) Chronic low back pain Code(s): M54.5 - LOW BACK PAIN; G89.29 - OTHER CHRONIC PAIN Status: Chronic (3) Diabetes type 2, controlled Code(s): E11.9 - TYPE 2 DIABETES MELLITUS WITHOUT COMPLICATIONS Status: Chronic (4) BPH (benign prostatic hyperplasia) Code(s): N40.0 - BENIGN PROSTATIC HYPERPLASIA WITHOUT LOWER URINRY TRACT SYMP Status: Chronic (5) CAD (coronary artery disease) Code(s): I25.10 - ATHSCL HEART DISEASE OF [place] CORONARY ARTERY W/O ANG PCTRS Status: Chronic Comment: (6) HTN (hypertension) Code(s): I10 - ESSENTIAL (PRIMARY) HYPERTENSION Status: Chronic (7) Dyslipidemia Code(s): E78.5 - HYPERLIPIDEMIA, UNSPECIFIED Status: Chronic (8) Anxiety and depression Code(s): F41.9 - ANXIETY DISORDER, UNSPECIFIED; F32.9 - MAJOR DEPRESSIVE DISORDER, SINGLE EPISODE, UNSPECIFIED Status: Chronic (9) GERD (gastroesophageal reflux disease) Code(s): K21.9 - GASTRO-ESOPHAGEAL REFLUX DISEASE WITHOUT ESOPHAGITIS Status: Chronic - Plan cont current plan of care, 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 Review of Systems - Review of Systems ENT: negative: Ear Pain, Ear Discharge, Nose Pain, Nose Discharge, Nose Congestion, Mouth Pain, Mouth Swelling, Throat Pain, Throat Swelling, Other Respiratory: negative: Cough, Dry, Shortness of Breath, Hemoptysis, SOB with Excertion, Pleuritic Pain, Sputum, Wheezing Cardiovascular: negative: chest pain, palpitations, orthopnea, paroxysmal nocturnal dyspnea, edema, light headedness, other Gastrointestinal: negative: Nausea, Vomiting, Abdominal Pain, Diarrhea, Constipation, Melena, Hematochezia, Other Genitourinary: negative: Dysuria, Frequency, Incontinence, Hematuria, Retention , Other Musculoskeletal: negative: Neck Pain, Shoulder Pain, Arm Pain, Back Pain, Hand Pain, Leg Pain, Foot Pain, Other - Medications/Allergies Allergies/Adverse Reactions: Allergies Allergy/AdvReac Type Severity Reaction Status Date / Time lisinopril Allergy angioedema Verified 01/20/18 12:18 Medications: Current Medications Acetaminophen (Tylenol) 650 mg PO Q4H PRN PRN Reason: Headache/Fever/Mild Pain (1-3) Last Admin: 09/04/18 17:20 Dose: 650 mg Hydrocodone Bitart/Acetaminophen (Delta 5/325) 1 tab PO Q4H PRN PRN Reason: Moderate Pain (4-6) Last Admin: 09/10/18 07:57 Dose: 1 tab Amitriptyline HCl (Elavil) 50 mg PO HS [facility] Last Admin: 09/09/18 22:19 Dose: Not Given Amlodipine Besylate (Norvasc) 10 mg PO HS [facility] Last Admin: 09/09/18 22:19 Dose: Not Given Artificial Tears (Tears Naturale) 2 drop EA EYE PRN PRN PRN Reason: Dry Eyes Atenolol (Tenormin) 50 mg PO BID [facility] Last Admin: 09/10/18 07:54 Dose: 50 mg Atorvastatin Calcium (Lipitor) 20 mg PO HS [facility] Last Admin: 09/09/18 22:20 Dose: Not Given Baclofen (Lioresal) 20 mg PO BIDPRN PRN PRN Reason: Muscle Pain Last Admin: 09/10/18 07:54 Dose: 20 mg Bisacodyl (Dulcolax) 10 mg [place] DAILYPRN PRN PRN Reason: Constipation Bupropion HCl (Wellbutrin Xl) 150 mg PO DAILY [facility] Last Admin: 09/10/18 07:54 Dose: 150 mg Dextrose/Water (Dextrose 50%) 25 gm SLOW IVP PRN PRN PRN Reason: Hypoglycemia Doxazosin Mesylate (Cardura) 2 mg PO DAILY [facility] Last Admin: 09/10/18 07:54 Dose: 2 mg Gabapentin (Neurontin) 300 mg PO BID [facility] Last Admin: 09/10/18 07:54 Dose: 300 mg Glipizide (Glucotrol Xl) 10 mg PO DAILY [facility] Last Admin: 09/10/18 07:53 Dose: 10 mg Glucagon (Glucagon) 1 mg IM PRN PRN PRN Reason: Hypoglycemia Guaifenesin (Robitussin Sf) 200 mg PO Q4H PRN PRN Reason: Cough Hydralazine HCl (Apresoline) 10 mg SLOW IVP Q4H PRN PRN Reason: SBP > 180 and HR < 70 Dextrose/Water (D5w) 1,000 mls @ 0 mls/hr IV .Q0M PRN PRN Reason: Hypoglycemia Insulin Human Lispro (Humalog) 0 units SC .MODERATE SLIDING SC PRN PRN Reason: Moderate Correctional Scale Last Admin: 09/10/18 10:49 Dose: 4 unit Insulin Human Lispro (Humalog) 0 units SC .BEDTIME SLIDING SC PRN PRN Reason: Bedtime Correctional Scale Last Admin: 09/09/18 21:54 Dose: 3 unit Iron/Minerals/Multivitamins (Theragran M) 1 tab PO DAILY [facility] Last Admin: 09/10/18 07:53 Dose: 1 tab Loperamide HCl (Imodium) 2 mg PO PRN PRN PRN Reason: Diarrhea/Loose Stools Loratadine (Claritin) 10 mg PO DAILYPRN PRN PRN Reason: Sinus Symptoms Melatonin (Melatonin) 3 mg PO HS PRN PRN Reason: Insomnia Last Admin: 09/07/18 23:00 Dose: 3 mg Metformin HCl (Glucophage) 1,000 mg PO BID[facility] Last Admin: 09/10/18 07:53 Dose: 1,000 mg Morphine Sulfate (Morphine) 2 mg SLOW IVP Q1H PRN PRN Reason: Severe Pain (7-10) Last Admin: 09/06/18 15:38 Dose: 2 mg Hold All (Antithrombotics) 1 each FS .HOLD ANTITHROMB [facility] Ondansetron HCl (Zofran) 4 mg IVP Q6H PRN PRN Reason: Nausea/Vomiting Last Admin: 09/04/18 20:24 Dose: 4 mg Ondansetron HCl (Zofran Odt) 4 mg PO Q6H PRN PRN Reason: Nausea/Vomiting Pantoprazole Sodium (Protonix) 40 mg PO DAILY [facility] Last Admin: 09/10/18 07:53 Dose: 40 mg Polyethylene Glycol (Miralax) 17 gm PO DAILY [facility] Last Admin: 09/10/18 07:52 Dose: 17 gm Senna/Docusate Sodium (Senokot S) 2 tab PO BID [facility] Last Admin: 09/10/18 07:53 Dose: 2 tab Sodium Chloride ([place] Nasal [place] 0.65%) 0 ml EA NARE QIDPRN PRN PRN Reason: Nasal Congestion Spironolactone (Aldactone) 25 mg PO QAM [facility] Last Admin: 09/10/18 07:54 Dose: 25 mg Throat Lozenges (Cepastat Lozenges) 1 shanice PO Q2H PRN PRN Reason: Sore Throat Tizanidine HCl (Zanaflex) 4 mg PO TID PRN PRN Reason: Muscle Spasm Last Admin: 09/07/18 21:31 Dose: 4 mg Tramadol HCl (Ultram) 100 mg PO Q6H PRN PRN Reason: Moderate Pain (4-6) Last Admin: 09/10/18 01:14 Dose: 100 mg
[2018-09-10 20:13] VITALS: BP 127/78; TEMP 98.3
== END 2018-09-10 20:12 | DRG 472 ==
LOC: SCSER 16:20 → SURG B 19:57
PROVIDERS: ADMIT Surgery; ATTEND Surgery
PROC: 0RG2071 Fusion of 2 or more Cervical Vertebral Joints with Autologous Tissue Substitute, Posterior Approach, Posterior Column, Open Approach (ICD-10-PCS; principal; 2018-09-05)
DX: M48.02 Spinal stenosis, cervical region (principal); G99.2 Myelopathy in diseases classified elsewhere; G95.20 Unspecified cord compression; F41.9 Anxiety disorder, unspecified; I25.10 Atherosclerotic heart disease of native coronary artery without angina pectoris; E11.9 Type 2 diabetes mellitus without complications; M54.2 Cervicalgia; G89.29 Other chronic pain; M54.16 Radiculopathy, lumbar region; F32.9 Major depressive disorder, single episode, unspecified; E78.5 Hyperlipidemia, unspecified; K21.9 Gastro-esophageal reflux disease without esophagitis; I10 Essential (primary) hypertension; N40.0 Benign prostatic hyperplasia without lower urinary tract symptoms; Z79.899 Other long term (current) drug therapy; Z98.890 Other specified postprocedural states
CPT/HCPCS: 36415; 36416; 36430; 71045; 72125; 72141; 72146; 72148; 76000; 80053; 85025; 85610; 85730; 86850; 86900; 86901; 93005; C1713; J0690; J2001; J2250; J2270; J2370; J2405; J2704; J3010; J3370; J3490; P9035

== ENCOUNTER 2018-10-05 21:13 | Emergency (ER) | payer BC ==
[2018-10-05 22:17] LABS: Bilirubin Negative (Negative); Blood, Urine Trace (Negative); Glucose, Urine (Dipstick) Negative (Negative); Leukocyte Large (Negative); Nitrite Negative (Negative); Protein, Urine (Dipstick) 100 mg/dL (Neg-Trace); Urobilinogen 0.2 mg/dL (Less than 2)
[2018-10-05 22:23] LABS: Clarity Cloudy (Clear)
[2018-10-05 22:26] LABS: Bacteria/HPF 4+ HPF (None Seen); RBC/HPF 0-3 HPF (0-3); Squamous Epithelial 0-3 HPF (0-3); WBC/HPF Greater Than 50 HPF (0-3)
--- NOTE | 2018-10-05 22:27 | RAD ---
EXAM: Portable chest PROVIDED CLINICAL HISTORY: Weakness COMPARISON: 09/04/2018 FINDINGS: Cardiac and mediastinal silhouette is within normal limits. No focal consolidation, pleural fluid or pneumothorax evident. IMPRESSION: No evidence for an acute cardiopulmonary process.
[2018-10-05 22:29] LABS: Mean Corpuscular Volume 89.3 fL (78.0-98.0)
[2018-10-05 22:40] LABS: #Lymphocytes 1.3 thou/uL (1.20-3.40); #Neutrophils 11.5 thou/uL (1.40-6.50); %Basophils 0.2 % (0.0-1.0); %Eosinophils 0.3 % (0.0-10.0); %Lymphocytes 9.6 % (21.0-51.0); %Monocytes 7.1 % (0.0-10.0); %Neutrophils 82.9 % (42.0-75.0); Hemoglobin 11.6 g/dL (14.0-18.0); Mean Corpuscular HGB CONC 34.6 g/dL (32.0-36.0); Mean Corpuscular Hemoglobin 30.9 pg (27.0-31.0); Mean Platelet Volume 10.8 fL (7.4-10.4); Platelet Count 107 thou/uL (130-400); Platelet Morphology Comment Appears Decreased; RBC Distribution Width 12.1 % (11.5-14.5); Red Blood Cell (RBC) Count 3.73 mill/uL (4.70-6.10); White Blood Cell (WBC) Count 13.8 thou/uL (4.8-10.8)
[2018-10-05 22:48] LABS: ALT (SGPT) 12 U/L (8-55); AST (SGOT) 10 U/L (5-34); Albumin 4.1 g/dL (3.4-4.8); Alkaline Phosphatase 65 U/L (40-150); Anion Gap 15 mmol/L (10-20); BUN (Urea Nitrogen) 13 mg/dL (8.4-25.7); Bilirubin, Total 0.6 mg/dL (0.2-1.2); CK (CPK) 76 U/L (30-200); Calc. Creatinine Clearance 0 mL/min (70-130); Calcium 9.5 mg/dL (7.8-10.44); Carbon Dioxide 21 mmol/L (23-31); Chloride 101 mmol/L (98-107); Estimated GFR-MDRD 78; Globulin 2.9 g/dL (2.4-3.5); Glucose 202 mg/dL (80-115); Lipase 19 U/L (8-78); Potassium 4.4 mmol/L (3.5-5.1); Sodium 133 mmol/L (136-145)
--- NOTE | 2018-10-05 23:15 | CT ---
Exam: CT brain PROVIDED CLINICAL HISTORY: Head injury COMPARISON: 10/25/2016 FINDINGS: The ventricular system is normal in size and morphology. No evidence for intracranial hemorrhage or mass effect. The extracranial soft tissues and osseous structures demonstrate no evidence for an acute abnormality. IMPRESSION: No evidence for intracranial hemorrhage or mass effect.
[2018-10-05] MEDS ORDERED: cefTRIAXone\\ROCEPHIN 2 GM VIAL ONE (23:16)
--- NOTE | 2018-10-05 23:19 | CT ---
EXAM: CT cervical spine PROVIDED CLINICAL HISTORY: Leg weakness COMPARISON: 09/03/2018 FINDINGS: No evidence for fracture or traumatic subluxation. No prevertebral soft tissue swelling apparent. Vi sualized lung apices appear clear. Interval postoperative changes of laminectomy at C3, C4 and C5. Bilateral articular pillar screws and vertical interconnecting rods span C3-C6 without evidence for h ardware loosening or migration. Advanced multilevel cervical degenerative change is redemonstrated. Beam hardening artifact from postoperative change limits evaluation of the central canal at the opera tive levels. IMPRESSION: No evidence for fracture or traumatic subluxation.
[2018-10-06] MEDS ORDERED: Meropenem 2 GM in Sodium Chloride 0.9% 100 ML IVPB SCH (00:30)
--- NOTE | 2018-10-09 13:26 | EKG ---
Test Reason : ERS.NN Blood Pressure : / mmHG Vent. Rate : 091 BPM Atrial Rate : 091 BPM P-R Int : 172 ms QRS Dur : 084 ms QT Int : 354 ms P-R-T Axes : 000 134 122 degrees QTc Int : 435 ms Normal sinus rhythm Left posterior fascicular block Abnormal ECG Confirmed by ACOSTA RANDALL MD ([id number]), research editor WALDEMAR FIELD ([id number]) on 10/09/2018 1:25:58 PM Referred By: Confirmed By:ACOSTA RANDALL MD
== END 2018-10-06 01:33 | disposition home or self-care (01) ==
LOC: ERS 21:13
DX: N39.0 Urinary tract infection, site not specified (principal); I25.10 Atherosclerotic heart disease of native coronary artery without angina pectoris; K21.9 Gastro-esophageal reflux disease without esophagitis; K56.609 Unspecified intestinal obstruction, unspecified as to partial versus complete obstruction; E11.9 Type 2 diabetes mellitus without complications; E78.5 Hyperlipidemia, unspecified; I10 Essential (primary) hypertension; Z79.899 Other long term (current) drug therapy; Z79.891 Long term (current) use of opiate analgesic; Z79.82 Long term (current) use of aspirin; Z79.84 Long term (current) use of oral hypoglycemic drugs
CPT/HCPCS: 36415; 70450; 71045; 72125; 80053; 81003; 81015; 82550; 83690; 84484; 85025; 87040; 87077; 87086; 87186; 93005; 96361; 96365; 96367; J0696; J2185; J3490

== ENCOUNTER 2019-02-16 14:39 | Emergency (ER) | payer BC, OTHER ==
[2019-02-16 15:16] LABS: #Lymphocytes 0.8 thou/uL (1.20-3.40); #Monocytes 0.7 thou/uL (0.11-0.59); #Neutrophils 11.3 thou/uL (1.40-6.50); %Basophils 0.1 % (0.0-1.0); %Eosinophils 0.3 % (0.0-10.0); %Lymphocytes 6.2 % (21.0-51.0); %Monocytes 5.2 % (0.0-10.0); %Neutrophils 88.1 % (42.0-75.0); Hemoglobin 11.8 g/dL (14.0-18.0); Mean Corpuscular HGB CONC 33.6 g/dL (32.0-36.0); Mean Corpuscular Hemoglobin 29.3 pg (27.0-31.0); Mean Corpuscular Volume 87.1 fL (78.0-98.0); Mean Platelet Volume 9.7 fL (7.4-10.4); Platelet Count 129 thou/uL (130-400); Red Blood Cell (RBC) Count 4.04 mill/uL (4.70-6.10); White Blood Cell (WBC) Count 12.9 thou/uL (4.8-10.8)
[2019-02-16] MEDS ORDERED: cefTRIAXone\\ROCEPHIN 1 GM VIAL ONE (15:32)
[2019-02-16 15:38] LABS: Bilirubin Negative (Negative); Blood, Urine 2+ (Negative); Clarity Extra Turbid (Clear); Glucose, Urine (Dipstick) Greater than 1000 mg/dL (Negative); Leukocyte 500 Leu/uL (Negative); Nitrite 2+ (Negative); Protein, Urine (Dipstick) 70 mg/dL (Neg-Trace); RBC/HPF 21-50 HPF (0-3); Squamous Epithelial None Seen HPF (0-3); Urobilinogen Normal mg/dL (Less than 2); WBC/HPF Greater than 50 HPF (0-3)
[2019-02-16 15:38] LABS: ALT (SGPT) 17 U/L (8-55); AST (SGOT) 24 U/L (5-34); Albumin 3.9 g/dL (3.4-4.8); Alkaline Phosphatase 67 U/L (40-110); Anion Gap 11 mmol/L (10-20); BUN (Urea Nitrogen) 10 mg/dL (8.4-25.7); Bilirubin, Total 0.7 mg/dL (0.2-1.2); Calc. Creatinine Clearance 0 mL/min (70-130); Carbon Dioxide 25 mmol/L (23-31); Chloride 104 mmol/L (98-107); Estimated GFR-MDRD 78; Globulin 3.1 g/dL (2.4-3.5); Glucose 303 mg/dL (80-115); Potassium 3.8 mmol/L (3.5-5.1); Sodium 136 mmol/L (136-145)
[2019-02-16 15:39] LABS: Bacteria/HPF 1+ HPF (None Seen)
[2019-02-16] MEDS ORDERED: Acetaminophen 500 MG TAB ONE (16:04)
[2019-02-16] MEDS ORDERED: Ibuprofen 800 MG TAB ONE (16:39)
[2019-02-16] MEDS ORDERED: Meropenem 2 GM in Sodium Chloride 0.9% 100 ML IVPB SCH (18:45)
== END 2019-02-16 19:41 | disposition home or self-care (01) ==
LOC: ERS 14:39
DX: N39.0 Urinary tract infection, site not specified (principal); I25.10 Atherosclerotic heart disease of native coronary artery without angina pectoris; K21.9 Gastro-esophageal reflux disease without esophagitis; E11.9 Type 2 diabetes mellitus without complications; E78.5 Hyperlipidemia, unspecified; I10 Essential (primary) hypertension; N40.0 Benign prostatic hyperplasia without lower urinary tract symptoms; F32.9 Major depressive disorder, single episode, unspecified; Z79.899 Other long term (current) drug therapy; Z79.82 Long term (current) use of aspirin; Z95.5 Presence of coronary angioplasty implant and graft; Z79.84 Long term (current) use of oral hypoglycemic drugs
CPT/HCPCS: 80053; 81003; 81015; 83605; 85025; 87040; 87077; 87086; 87149; 87186; 94760; 96361; 96365; 96375; J0696; J2185; J3490

== ENCOUNTER 2019-02-17 10:51 | Inpatient (IN) | payer BC, OTHER ==
[2019-02-17] MEDS ORDERED: cefTRIAXone\\ROCEPHIN 1 GM VIAL ONE (12:18)
[2019-02-17] MEDS ORDERED: Meropenem 2 GM, Admixture Fee 1 EACH in Sodium Chloride 0.9% 100 ML IVPB SCH (12:30)
[2019-02-17] MEDS ORDERED: Acetaminophen 500 MG TAB ONE (12:30)
[2019-02-17 12:31] LABS: #Lymphocytes 0.6 thou/uL (1.20-3.40); #Monocytes 0.5 thou/uL (0.11-0.59); #Neutrophils 11.6 thou/uL (1.40-6.50); %Basophils 0.2 % (0.0-1.0); %Eosinophils 0.1 % (0.0-10.0); %Lymphocytes 4.7 % (21.0-51.0); %Monocytes 3.9 % (0.0-10.0); Hemoglobin 12.2 g/dL (14.0-18.0); Mean Corpuscular HGB CONC 33.1 g/dL (32.0-36.0); Mean Corpuscular Volume 90.8 fL (78.0-98.0); Mean Platelet Volume 10.2 fL (7.4-10.4); Platelet Count 117 thou/uL (130-400); RBC Distribution Width 12.2 % (11.5-14.5); Red Blood Cell (RBC) Count 4.06 mill/uL (4.70-6.10); White Blood Cell (WBC) Count 12.7 thou/uL (4.8-10.8)
[2019-02-17 12:48] LABS: ALT (SGPT) 20 U/L (8-55); AST (SGOT) 38 U/L (5-34); Albumin 3.8 g/dL (3.4-4.8); Alkaline Phosphatase 69 U/L (40-110); Anion Gap 16 mmol/L (10-20); BUN (Urea Nitrogen) 11 mg/dL (8.4-25.7); Bilirubin, Total 0.6 mg/dL (0.2-1.2); Calc. Creatinine Clearance 0 mL/min (70-130); Calcium 8.5 mg/dL (7.8-10.44); Carbon Dioxide 20 mmol/L (23-31); Chloride 101 mmol/L (98-107); Estimated GFR-MDRD 64; Globulin 3.3 g/dL (2.4-3.5); Glucose 338 mg/dL (80-115); Potassium 4.6 mmol/L (3.5-5.1); Protein, Total 7.1 g/dL (5.8-8.1); Sodium 132 mmol/L (136-145)
[2019-02-17 13:12] LABS: Platelet Morphology Comment Appears Decreased; RBC Morphology Normal
--- NOTE | 2019-02-17 13:45 | PDOC.FPRHP ---
- History of Present Illness Chief Complaint: Bacteremia, UTI History of Present Illness: 64 year old male presented to ED yesterday due to dysuria. He was found to be septic at that time. Admission was advised, but patient declined. He received meropenem and rocephin in ED and was discharged home on levoquin. Patient did not start levoquin. Patient had blood cultures and urine cultures result positive for E. coli, so he was called back for re-evaluation and admission for antibiotics. Patient has had dysuria for the last 7 days. He started to feel more weak this morning. Patient had fall two days ago due to weakness. He did not hit his head or have LOC at that time. He states today, his dysuria feels improved, but he is having lower abdominal pain. He has recurrent UTI's and the number of UTI's did not decline after TURP and cystoscopy with urethral dilation a year ago. His other UTI's have presented similarly. Patient had an episode of emesis yesterday. His input decreased yesterday and today as he was not feeling well. He has had decreased urination over the course of the last day , as well. Patient and patient's family request Hospitalist team to admit, as they have admitted each time in the past and family is comfortable with their care. However, Hospitalist team has requested that the Family Medicine team admit the patient and transfer care in the morning. Family was reluctant, but agreed. ED Course: Meropenem, Rocephin, Tylenol, 1L NS - Allergies/Adverse Reactions Allergies Allergy/AdvReac Type Severity Reaction Status Date / Time lisinopril Allergy angioedema Verified 01/20/18 12:18 - Home Medications Medication Instructions Recorded Confirmed Type Amlodipine Besylate [amLODIPine 10 mg PO HS 02/11/13 02/17/19 History Besylate] glipiZIDE [glipiZIDE ER] 10 mg PO DAILY 02/11/13 02/17/19 History metFORMIN HCl 500 mg PO ASDIR 02/11/13 02/17/19 History Atorvastatin Calcium 20 mg PO DAILY 10/13/14 02/17/19 History Doxazosin Mesylate 2 mg PO DAILY 10/25/16 02/17/19 History traMADol HCl [Tramadol HCl] 50 mg PO QID PRN 10/25/16 02/17/19 History Atenolol 50 mg PO BID 12/15/16 02/17/19 History Multivitamin [Multi-Vitamin Daily] 1 tablet PO DAILY 02/25/17 02/17/19 History Baclofen [Lioresal] 20 mg PO BID PRN tab 02/04/18 02/17/19 Rx Spironolactone [Aldactone] 25 mg PO QAM tab 02/04/18 02/17/19 Rx Amitriptyline HCl 1 tab PO DAILY 09/03/18 02/17/19 History Buprenorphine 1 patch TOP Q7DAYS 09/03/18 02/17/19 History Bupropion HCl [buPROPion HCl XL] 150 mg PO DAILY 09/03/18 02/17/19 History Celecoxib 1 tab PO DAILY 09/03/18 02/17/19 History Omeprazole 20 mg PO DAILY 09/03/18 02/17/19 History Comments: Patient's daughter states med list is up to date from ED - History PMHx: BPH, chronic low back pain, HLD, HTN, CAD s/p stents x2, recurrent UTIs, T2DM PSHx: TURP 2018, Cystoscopy with urethral dilation 2018, cholecystectomy, Small bowel resection for benign tumor, Laminectomy FHx: Noncontributory Social: Patient denies tobacco or drug use. Patient endorses occasional alcohol use. - Review of Systems General: reports: fever/chills, fatigue Eyes: denies: eye pain, vision changes ENT: denies: nasal congestion Respiratory: denies: cough, congestion, shortness of breath Cardiovascular: denies: chest pain, palpitation, edema Gastrointestinal: reports: nausea, vomiting, diarrhea, abdominal pain. denies: constipation, GI bleeding Genitourinary: reports: dysuria. denies: incontinence Skin: denies: rashes, lesions Musculoskeletal: denies: pain, tenderness Neurological: reports: weakness. denies: numbness, syncope Psychological: reports: anxiety, depression - Vital signs BP: 123/69 HR: 103 RR: 18 Tmax: 101.2F Pox: 94% on RA Wt: [] - Physical Exam Constitutional: NAD, awake, alert and oriented, well developed HEENT: EOMI, grossly normal vision, grossly normal hearing -HEENT: Dry MM Heart: RRR, no murmurs/rubs/gallops, pulses present, no edema Lungs: CTAB, no respiratory distress Abdomen: soft, bowel sounds present -Abdomen: TTP in suprapubic region, Mildly distended Musculoskeletal: normal tone, ROM grossly normal Neurological: no focal deficit Skin: no rash/lesions, capillary refill <2 seconds Heme/Lymphatic: no unusual bruising or bleeding, no purpura Psychiatric: intact recent and remote memory -Psychiatric: Depressed affect FMR H&P: Results - Labs Result Diagrams: 02/17/19 12:16 02/17/19 12:16 Lab results: WBC 12.7 thou/uL (4.8-10.8) H 02/17/19 12:16 Hgb 12.2 g/dL (14.0-18.0) L 02/17/19 12:16 Hct 36.8 % (42.0-52.0) L 02/17/19 12:16 MCV 90.8 fL (78.0-98.0) 02/17/19 12:16 Plt Count 117 thou/uL (130-400) L 02/17/19 12:16 Neutrophils % 91.0 % (42.0-75.0) H 02/17/19 12:16 Sodium 132 mmol/L (136-145) L 02/17/19 12:16 Potassium 4.6 mmol/L (3.5-5.1) 02/17/19 12:16 Chloride 101 mmol/L (98-107) 02/17/19 12:16 Carbon Dioxide 20 mmol/L (23-31) L 02/17/19 12:16 BUN 11 mg/dL (8.4-25.7) 02/17/19 12:16 Creatinine 1.15 mg/dL (0.7-1.3) 02/17/19 12:16 Glucose 338 mg/dL (80-115) H 02/17/19 12:16 Lactic Acid 2.4 mmol/L (0.5-2.2) H 02/17/19 12:16 Calcium 8.5 mg/dL (7.8-10.44) 02/17/19 12:16 Total Bilirubin 0.6 mg/dL (0.2-1.2) 02/17/19 12:16 AST 38 U/L (5-34) H 02/17/19 12:16 ALT 20 U/L (8-55) 02/17/19 12:16 Alkaline Phosphatase 69 U/L (40-110) 02/17/19 12:16 Serum Total Protein 7.1 g/dL (5.8-8.1) 02/17/19 12:16 Albumin 3.8 g/dL (3.4-4.8) 02/17/19 12:16 FMR H&P: A/P - Problem List (1) Sepsis Current Visit: Yes Status: Acute Code(s): A41.9 - SEPSIS, UNSPECIFIED ORGANISM Qualifiers: Sepsis type: Escherichia coli (2) UTI (urinary tract infection) Current Visit: Yes Status: Acute (3) Bacteremia Current Visit: Yes Status: Acute Code(s): R78.81 - BACTEREMIA (4) Anxiety and depression Current Visit: No Status: Chronic Code(s): F41.9 - ANXIETY DISORDER, UNSPECIFIED; F32.9 - MAJOR DEPRESSIVE DISORDER, SINGLE EPISODE, UNSPECIFIED (5) BPH (benign prostatic hyperplasia) Current Visit: No Status: Chronic Code(s): N40.0 - BENIGN PROSTATIC HYPERPLASIA WITHOUT LOWER URINRY TRACT SYMP (6) CAD (coronary artery disease) Current Visit: No Status: Chronic Code(s): I25.10 - ATHSCL HEART DISEASE OF [place] CORONARY ARTERY W/O ANG PCTRS Comment: (7) Chronic low back pain Current Visit: No Status: Chronic Code(s): M54.5 - LOW BACK PAIN; G89.29 - OTHER CHRONIC PAIN (8) Diabetes type 2, controlled Current Visit: No Status: Chronic Code(s): E11.9 - TYPE 2 DIABETES MELLITUS WITHOUT COMPLICATIONS (9) Dyslipidemia Current Visit: No Status: Chronic Code(s): E78.5 - HYPERLIPIDEMIA, UNSPECIFIED (10) GERD (gastroesophageal reflux disease) Current Visit: No Status: Chronic Code(s): K21.9 - GASTRO-ESOPHAGEAL REFLUX DISEASE WITHOUT ESOPHAGITIS (11) HTN (hypertension) Current Visit: No Status: Chronic Code(s): I10 - ESSENTIAL (PRIMARY) HYPERTENSION - Plan 64 year old male presents with dysuria and blood cultures positive for E. coli E. coli bacteremia 2/2 UTI - Sensitivities pending - Patient in ED yesterday and requested discharge home - Blood cultures resulted with E. coli, and patient advised to return to ED - Patient with E. coli UTI in past, which was sensitive to most antibiotics, including rocephin - Continue rocephin (today is day 2 of rocephin 02/16) - Patient followed closely by urology - He last saw Dr. Gibson 2 months ago and had cystoscopy done which was reportedly normal - Will adequately fluid resuscitate patient - HH diet - Continue to monitor vital signs - LA 1.9 --> 2.4 --> 1.2 - Consider renal ultrasound or CT scan to further evaluate for post-obstructive uropathy - Procal pending Sepsis 2/2 UTI and E. coli bacteremia - Tachycardia, tachypnea, fever - See plan as above - Continue rocephin (02/16) BPH - s/p TURP in 2018 CAD s/p stents - Continue home medications DM type II - Hyperglycemia protocol - Continue home medications HLD - Continue home medications Hypertriglyceridemia - Continue home medications Anxiety/depression - Continue home medications GERD - Continue home medications HTN - Continue home medications - Hold if signs of septic shock Recurrent UTI's - Follows closely with Urology - s/p TURP for suspected post-obstructive uropathy - Hx klebsiella, E. coli, MRSA UTI - See plan above for bacteremia Thrombocytopenia - Has been low in the past, but returned to normal - Continue to monitor DVT PPX: SCD's Code status: Full Dispo: Admit to medical. Anticipate LOS >48 hours. Will transfer to Hospitalist group in AM at request of family and as discussed with Hospitalist today. FMR H&P: Upper Level - Plan Date/Time: 02/17/19 3925 I, [], have evaluated this patient and agree with findings/plan as outlined by software developer intern resident. Pertinent changes/additions are listed here. Addendum - Attending - Attending Attestation Date/Time: 02/17/19 [id number] I personally evaluated the patient and discussed the management with Dr. Rowland /Saravanan. I agree with the History, Examination, Assessment and Plan documented above with any addition or exceptions noted below. Patient here for bactermia discovered yesterday during ER visit for dysuria. Blood cultures are currently growing E. coli. He has previous UTI with E coli that are essentially pansensitive. Patient will be admitted for E coli bactermia 2/2 UTI. Continue Rocephin, await final cultures. IV fluid resuscitation. Consider Urology consult. Plan to transition care to hospitalist service tomorrow per family request as they have cared for patient on previous admissions.
[2019-02-17] MEDS ORDERED: Ibuprofen 800 MG TAB ONE (13:51)
[2019-02-17 15:11] LABS: Lactic Acid 1.2 mmol/L (0.5-2.2)
[2019-02-17] MEDS ORDERED: Ondansetron ODT 4 MG TAB SL PRN (15:20)
[2019-02-17] MEDS ORDERED: Ondansetron PF 4 MG/2 ML Vial IVP PRN (15:20)
[2019-02-17] MEDS ORDERED: Acetaminophen 325 MG TAB PO PRN (15:20)
[2019-02-17] MEDS ORDERED: Sodium Chloride 0.9% 1,000 ML IV SCH (15:45)
[2019-02-17] MEDS ORDERED: Dextrose 5% in Water 1,000 ML IV PRN (16:13)
[2019-02-17] MEDS ORDERED: Dextrose 50% Abboject 50 ML SYRINGE SLOW IVP PRN (16:13)
[2019-02-17] MEDS: Lactated Ringer's 1,000 ML IV SCH (17:04)
[2019-02-17] MEDS: HumaLOG 300 UNITS/3 ML VIAL SC PRN ×2 (17:12→21:28)
[2019-02-17 18:23] VITALS: BMI 29.5
[2019-02-17] MEDS ORDERED: Simethicone Chewable 80 MG TAB PO PRN (20:35)
[2019-02-17] MEDS ORDERED: Lidocaine 2% Viscous Solution 20 ML, Aluminum & Magnesium Hydroxide 30 ML, Donnatal Eli... SSW SCH (21:00)
[2019-02-17] MEDS: metFORMIN 500 MG TAB PO SCH (21:26)
[2019-02-17] MEDS: Amlodipine 10 MG TAB PO SCH (21:26)
[2019-02-17] MEDS: Atenolol 50 MG TAB PO SCH (21:45)
--- NOTE | 2019-02-18 00:05 | PDOC.BPN ---
- Brief Progress Note Patient was experiencing increasing abdominal pain and bloating. Evaluated him earlier this evening and tried GI cocktail and Mylicon. Paged again that pain was not relieved by previous medications. On reevaluation, patient was short of breath, speaking in short sentences. 97% on 2L O2 (new). He is diffusely tender to palpation and diaphoretic. Ordered: Stat EKG, urgent CXR and CT abdomen w/ IV contrast, labs (CBC, lipase, troponin) Morphine 4mg for pain Will follow up with results.
[2019-02-18] MEDS ORDERED: Morphine 4 MG/ML VIAL SLOW IVP SCH (00:15)
[2019-02-18 00:30] LABS: #Basophils 0.1 thou/uL (0.0-0.2); #Lymphocytes 0.3 thou/uL (1.20-3.40); #Monocytes 0.4 thou/uL (0.11-0.59); #Neutrophils 8.5 thou/uL (1.40-6.50); %Basophils 1.3 % (0.0-1.0); %Lymphocytes 3.3 % (21.0-51.0); %Monocytes 4.2 % (0.0-10.0); %Neutrophils 91.2 % (42.0-75.0); Hemoglobin 10.7 g/dL (14.0-18.0); Mean Corpuscular HGB CONC 34.1 g/dL (32.0-36.0); Mean Corpuscular Volume 87.8 fL (78.0-98.0); Mean Platelet Volume 9.7 fL (7.4-10.4); Platelet Count 98 thou/uL (130-400); RBC Distribution Width 11.9 % (11.5-14.5); Red Blood Cell (RBC) Count 3.57 mill/uL (4.70-6.10); White Blood Cell (WBC) Count 9.3 thou/uL (4.8-10.8)
[2019-02-18 00:54] LABS: Troponin I 0.024 ng/mL (< 0.028)
[2019-02-18] MEDS: Lactated Ringer's 1,000 ML IV SCH ×2 (03:45→11:10)
--- NOTE | 2019-02-18 04:30 | PDOC.BPN ---
- Brief Progress Note Reevaluated patient after nurse paged for abnormal vital signs Pulse 122, afebrile, 91% on 2L He states he is feeling much better than earlier. He does have diffuse wheezing bilaterally. Ordered DuoNeb Reviewed EKG and imaging. CT showed bilateral pyelonephritis and bilateral small pleural effusions. CXR read not back yet. Image does not have obvious abnormality. Hopefully DuoNeb improves wheezing. He is resting comfortably.
[2019-02-18] MEDS: HumaLOG 300 UNITS/3 ML VIAL SC PRN ×2 (05:11→11:59)
[2019-02-18 05:52] LABS: Anion Gap 15 mmol/L (10-20); BUN (Urea Nitrogen) 12 mg/dL (8.4-25.7); Calc. Creatinine Clearance 87 mL/min (70-130); Calcium 8.2 mg/dL (7.8-10.44); Carbon Dioxide 18 mmol/L (23-31); Chloride 102 mmol/L (98-107); Estimated GFR-MDRD 67; Glucose 361 mg/dL (80-115); Potassium 3.9 mmol/L (3.5-5.1); Sodium 131 mmol/L (136-145)
[2019-02-18] MEDS: Spironolactone 25 MG TAB PO SCH (07:56)
[2019-02-18] MEDS: Bupropion 150 MG XL TAB PO SCH (07:56)
[2019-02-18] MEDS: Atorvastatin Calcium 20 MG TAB PO SCH (07:56)
[2019-02-18] MEDS: Atenolol 50 MG TAB PO SCH (07:56)
[2019-02-18] MEDS: Doxazosin 2 MG TAB PO SCH (07:56)
--- NOTE | 2019-02-18 07:57 | RAD ---
CHEST 2 VIEWS: INDICATION: Increasing shortness of breath and new O2 requirements. COMPARISON: Prior chest radiograph dated 10/05/2018. FINDINGS: There is increased airspace opacity involving the retrocardiac left lower lobe consistent with pneumo aide. There is mild cardiomegaly. The right lung is clear. No acute osseous abnormality is evident. Cholecystectomy clips are seen within the right upper quadrant of the abdomen. IMPRESSION: New left lower lobe pneumonia. Recommend radiographic followup to resolution. POS: MAITE
[2019-02-18] MEDS ORDERED: Furosemide 40 MG/4 ML VIAL SLOW IVP SCH ×2 (08:00→11:45)
[2019-02-18] MEDS ORDERED: FLU VACC QS2019-20(6MOS UP)/PF 60 MCG/0.5 ML SYRINGE IM ONE (09:00)
[2019-02-18] MEDS ORDERED: Amitriptyline HCl 25 MG TAB PO SCH (09:00)
--- NOTE | 2019-02-18 09:07 | CT ---
PRELIMINARY REPORT/[facility]/EMERGENCY AFTER HOURS PROCEDURE: PROCEDURE INFORMATION: Exam: CT Abdomen And Pelvis With Contrast Exam date and time: 02/18/2019 1:56 AM Age: 64 years old Clinical history: Patient HX: Generalized abdominal pain; Fever; Possible pyelonephritis TECHNIQUE: Imaging protocol: Computed tomography of the abdomen and pelvis with intravenous contrast. Other contrast: Route: Oral; COMPARISON: No relevant prior studies available. FINDINGS: Lungs: Bibasilar subsegmental atelectasis. Pleural space: Trace bilateral pleural effusions. Liver: Normal. No mass. Gallbladder and bile ducts: Prior cholecystectomy. No biliary ductal dilatation. Pancreas: Normal. No ductal dilation. Spleen: Normal. No splenomegaly. Adrenals: Normal. No mass. Kidneys and ureters: Left renal cyst. Diffuse bilateral perinephric stranding/fluid with small renal enhancement defects in the left kidney, compatible with bilateral pyelonephritis. Stomach and bowel: No bowel wall thickening or intestinal obstruction. Appendix: Normal appendix. Intraperitoneal space: Unremarkable. No free air. No significant fluid collection. Vasculature: Unremarkable. No abdominal aortic aneurysm. Lymph nodes: Unremarkable. No enlarged lymph nodes. Bladder: Unremarkable as visualized. Reproductive: Unremarkable as visualized. Bones/joints: Unremarkable. No acute fracture. Soft tissues: Bilateral fat containing inguinal hernias. IMPRESSION: 1. Bilateral pyelonephritis. 2. Trace bilateral pleural effusions. Thank you for allowing us to participate in the care of your patient. Dictated and Authenticated by: Damián Willams MD 02/18/2019 2:17 AM Central Time ([place] & [place]) FINAL REPORT I agree with the preliminary report provided. 1. There has been interval development of renal enlargement, perinephric stranding, and periureteral inflammatory stranding when compared to a prior dated 04/02/2010 suspicious for changes of pyelonephr itis. There is also mild cystitis suspected. 2. There are bilateral pleural effusions and bibasilar atelectasis. There has been interval enlarge ment of the exophytic cyst involving the superior pole of the left kidney now measuring 2.5 cm. 3. There is a mild amount of retained stool within the colon. 4. Other findings as above. POS:
[2019-02-18] MEDS: Morphine 2 MG/ML SYRINGE SLOW IVP PRN (11:08)
--- NOTE | 2019-02-18 11:35 | PDOC.BPN ---
- Brief Progress Note Called application penetration tester Sound Physician at 8:15 AM. Sound physician notified of transfer of care and accepted per patient and patient's family request on admission. Details of case discussed with accepting physician. Transfer of care completed.
[2019-02-18] MEDS: metFORMIN 500 MG TAB PO SCH ×3 (11:57→20:30)
[2019-02-18] MEDS ORDERED: cefTRIAXone\\ROCEPHIN 1 GM in Sodium Chloride 0.9% 100 ML IVPB SCH (12:00)
[2019-02-18] MEDS ORDERED: Iopamidol 370 76% 50 ML VIAL FS ONE (12:04)
--- NOTE | 2019-02-18 13:18 | PDOC.HOSPP ---
- Subjective Encounter Date: 02/18/19 Encounter Time: 12:30 Subjective: lethargic, awakens to touch, follows verbal stimuli but soon falls asleep audible wheezing - Objective Vital Signs & Weight: Vital Signs (12 hours) Temp Pulse Pulse Resp BP BP Pulse Ox 02/18/19 12:41 95 02/18/19 12:38 104 H 20 95 02/18/19 11:27 97.9 F 101 H 18 158/82 H 92 L 02/18/19 08:31 97 152/82 H 02/18/19 08:00 98.2 F 100 18 134/80 93 L 02/18/19 07:56 113 H 02/18/19 04:26 113 H 32 H 92 L 02/18/19 04:10 91 L 02/18/19 04:05 98.1 F 124 H 22 H 161/80 H 91 L Pulse Ox 02/18/19 12:41 02/18/19 12:38 02/18/19 11:27 02/18/19 08:31 91 L 02/18/19 08:00 02/18/19 07:56 02/18/19 04:26 02/18/19 04:10 02/18/19 04:05 Weight Weight 199 lb 9.344 oz I&O: 02/17/19 02/18/19 02/19/19 06:59 06:59 06:59 Intake Total 2600 Output Total 450 1000 Balance 2150 -1000 Result Diagrams: 02/18/19 00:18 02/18/19 05:05 Additional Labs: Accuchecks 02/18/19 02/18/19 02/17/19 11:30 04:32 19:37 POC Glucose 335 H 344 H 265 H 02/17/19 16:18 POC Glucose 262 H Hospitalist ROS - Medication Medications: Active Medications Generic Name Dose Route Start Last Admin Trade Name Freq PRN Reason Stop Dose Admin Albuterol/Ipratropium 3 ml 02/18/19 13:00 02/18/19 12:38 Duoneb NEB 3 ml [id number] KATHY Administration Amlodipine Besylate 10 mg 02/17/19 21:00 02/17/19 21:26 Norvasc PO 10 mg HS KATHY Administration Atorvastatin Calcium 20 mg 02/18/19 09:00 02/18/19 07:56 Lipitor PO 20 mg DAILY KATHY Administration Bupropion HCl 150 mg 02/18/19 09:00 02/18/19 07:56 Wellbutrin Xl PO 150 mg DAILY KATHY Administration Doxazosin Mesylate 2 mg 02/18/19 09:00 02/18/19 07:56 Cardura PO 2 mg DAILY KATHY Administration Furosemide 40 mg 02/18/19 11:45 02/18/19 11:58 Lasix SLOW IVP 02/18/19 13:45 40 mg NOW KATHY Administration Glipizide 10 mg 02/18/19 07:30 02/18/19 07:56 Glucotrol Xl PO 10 mg DAILY-AC [facility] Administration Ceftriaxone Sodium 1 gm/ 100 mls @ 200 mls/hr 02/18/19 12:00 02/18/19 11:58 Sodium Chloride IVPB 100 mls Q24HR KATHY Administration Insulin Human Lispro 0 units 02/17/19 16:13 02/18/19 11:59 Humalog SC 5 unit .MILD SLIDING SCALE PRN Administration Mild Correctional Scale Insulin Human Lispro 0 units 02/17/19 16:13 02/17/19 21:28 Humalog SC 3 unit .BEDTIME SLIDING SC PRN Administration Bedtime Correctional Scale Metformin HCl 500 mg 02/17/19 21:00 02/18/19 11:57 Glucophage PO 500 mg 1200,1700,2100 KATHY Administration Morphine Sulfate 2 mg 02/18/19 03:09 02/18/19 11:08 Morphine SLOW IVP 2 mg Q4H PRN Administration Severe Pain (7-10) Pantoprazole Sodium 40 mg 02/18/19 09:00 02/18/19 07:56 Protonix PO 40 mg DAILY KATHY Administration Simethicone 80 mg 02/17/19 20:35 02/17/19 22:57 Mylicon Chewable PO 80 mg PCHS PRN Administration Gas Pain Spironolactone 25 mg 02/18/19 09:00 02/18/19 07:56 Aldactone PO 25 mg QAM [facility] Administration - Exam General Appearance: awake alert, ill appearing Eye: PERRL, anicteric sclera ENT: no oropharyngeal lesions, moist mucosa Neck: supple, no JVD Heart: RRR, no murmur Respiratory: no rales, rhonchi, wheezes Gastrointestinal: soft, non-tender, non-distended, normal bowel sounds Extremities: no cyanosis, 1+ LE edema Neurological: cranial nerve grossly intact, no focal deficits Hosp A/P (1) Sepsis Code(s): A41.9 - SEPSIS, UNSPECIFIED ORGANISM Status: Acute Qualifiers: Sepsis type: Escherichia coli Sepsis acute organ dysfunction status: with acute organ dysfunction Severe sepsis shock status: without septic shock (2) Bacteremia Code(s): R78.81 - BACTEREMIA Status: Acute Plan: e.coli (3) UTI (urinary tract infection) Status: Acute Qualifiers: Urinary tract infection type: acute cystitis Hematuria presence: without hematuria Qualified Code(s): N30.00 - Acute cystitis without hematuria (4) Anxiety and depression Code(s): F41.9 - ANXIETY DISORDER, UNSPECIFIED; F32.9 - MAJOR DEPRESSIVE DISORDER, SINGLE EPISODE, UNSPECIFIED Status: Chronic (5) BPH (benign prostatic hyperplasia) Code(s): N40.0 - BENIGN PROSTATIC HYPERPLASIA WITHOUT LOWER URINRY TRACT SYMP Status: Chronic Qualifiers: Lower urinary tract symptom presence: symptoms present (6) CAD (coronary artery disease) Code(s): I25.10 - ATHSCL HEART DISEASE OF [place] CORONARY ARTERY W/O ANG PCTRS Status: Chronic Qualifiers: Coronary Disease-Associated Artery/Lesion type: [place] artery [place] vs. 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 use: without intermodal owner operator truck driver use (9) Dyslipidemia Code(s): E78.5 - HYPERLIPIDEMIA, UNSPECIFIED Status: Chronic (10) GERD (gastroesophageal reflux disease) Code(s): K21.9 - GASTRO-ESOPHAGEAL REFLUX DISEASE WITHOUT ESOPHAGITIS Status: Chronic (11) HTN (hypertension) Code(s): I10 - ESSENTIAL (PRIMARY) HYPERTENSION Status: Chronic Qualifiers: Hypertension type: essential hypertension Qualified Code(s): I10 - Essential (primary) hypertension - Plan is on ceftriaxone and vanc, may dc vanc in am is lethargic and appears volume overloaded, he got lasix at 8am, will give another dose now, nebs q6h and q4h prn no narcotics until pt is fully awake and responding well reduce atenolol to 50mg daily in view of vol overload continue glipizide, metformin, spironolactone, cardura, norvasc, welbutrin xl, amitryptiline will f/u to mobilize more as tolerated bladder residual volume x2, in view of rec uti
[2019-02-18] MEDS: traMADol HCl 50 MG TAB PO PRN (16:22)
[2019-02-18] MEDS: Amitriptyline HCl 25 MG TAB PO SCH (16:47)
[2019-02-18] MEDS: Amlodipine 10 MG TAB PO SCH (20:30)
[2019-02-19 05:32] LABS: #Lymphocytes 0.6 thou/uL (1.20-3.40); #Monocytes 0.5 thou/uL (0.11-0.59); #Neutrophils 6.4 thou/uL (1.40-6.50); %Basophils 0.1 % (0.0-1.0); %Eosinophils 0.1 % (0.0-10.0); %Lymphocytes 8.1 % (21.0-51.0); %Monocytes 6.4 % (0.0-10.0); %Neutrophils 85.3 % (42.0-75.0); Hemoglobin 10.7 g/dL (14.0-18.0); Mean Corpuscular HGB CONC 33.5 g/dL (32.0-36.0); Mean Corpuscular Volume 86.5 fL (78.0-98.0); Mean Platelet Volume 9.3 fL (7.4-10.4); Platelet Count 116 thou/uL (130-400); RBC Distribution Width 12.1 % (11.5-14.5); White Blood Cell (WBC) Count 7.5 thou/uL (4.8-10.8)
[2019-02-19] MEDS: HumaLOG 300 UNITS/3 ML VIAL SC PRN ×2 (05:46→11:34)
[2019-02-19 06:00] LABS: Anion Gap 13 mmol/L (10-20); BUN (Urea Nitrogen) 14 mg/dL (8.4-25.7); Calc. Creatinine Clearance 93 mL/min (70-130); Calcium 8.4 mg/dL (7.8-10.44); Carbon Dioxide 25 mmol/L (23-31); Chloride 98 mmol/L (98-107); Estimated GFR-MDRD 72; Glucose 290 mg/dL (80-115); Potassium 3.6 mmol/L (3.5-5.1); Sodium 132 mmol/L (136-145)
[2019-02-19 06:05] LABS: Troponin I Less than 0.010 ng/mL (< 0.028)
[2019-02-19] MEDS: Spironolactone 25 MG TAB PO SCH (09:04)
[2019-02-19] MEDS: Bupropion 150 MG XL TAB PO SCH (09:04)
[2019-02-19] MEDS: cefTRIAXone\\ROCEPHIN 2 GM in Sodium Chloride 0.9% 100 ML IVPB SCH (09:04)
[2019-02-19] MEDS: Doxazosin 2 MG TAB PO SCH (09:04)
[2019-02-19] MEDS: Atenolol 50 MG TAB PO SCH (09:04)
[2019-02-19] MEDS: Atorvastatin Calcium 20 MG TAB PO SCH (09:04)
[2019-02-19] MEDS: traMADol HCl 50 MG TAB PO PRN ×2 (09:10→17:12)
--- NOTE | 2019-02-19 09:56 | EKG ---
Test Reason : STAT Blood Pressure : / mmHG Vent. Rate : 122 BPM Atrial Rate : 122 BPM P-R Int : 150 ms QRS Dur : 082 ms QT Int : 310 ms P-R-T Axes : 031 053 062 degrees QTc Int : 441 ms Sinus tachycardia Otherwise normal ECG When compared with ECG of 05-OCT-2018 22:14, Left posterior fascicular block is no longer Present T wave inversion no longer evident in Lateral leads Confirmed by DANNY YEBOAH, SNikki ([id number]) on 02/19/2019 9:56:09 AM Referred By: ARAMIS Confirmed By:DR. Kylie DELGADO MD
[2019-02-19] MEDS: Morphine 2 MG/ML SYRINGE SLOW IVP PRN ×2 (11:34→20:41)
[2019-02-19] MEDS: metFORMIN 500 MG TAB PO SCH ×3 (11:35→20:40)
[2019-02-19] MEDS ORDERED: Insulin Regular 300 UNITS/3 ML VIAL SC PRN (12:41)
--- NOTE | 2019-02-19 12:46 | PDOC.HOSPP ---
- Subjective Encounter Date: 02/19/19 Encounter Time: 09:42 Subjective: 64 y/o male with BPH s/p TURP, DM, HTN and recurrent UTI admitted due to dysuria associated with positive blood and urine cultures. Patient was seen in the ED a day prior to admission and was found to have UTI associated with generalized weakness and fall but he declined admission but had to be called bach when urine and blood culture were positive.CT abd/pelvis showed features of bilateral pyelonephritis. Abdominal pain persists though improved. No fever. - Objective Vital Signs & Weight: Vital Signs (12 hours) Temp Pulse Resp BP BP Pulse Ox 02/19/19 12:36 99 20 90 L 02/19/19 09:04 116 H 143/75 H 02/19/19 08:00 94 L 02/19/19 07:36 99.3 F 122 H 20 143/76 H 93 L 02/19/19 06:59 92 L 02/19/19 06:58 113 H 20 92 L 02/19/19 04:00 99.1 F 106 H 20 141/67 H 90 L Weight Weight 199 lb 9.344 oz I&O: 02/18/19 02/19/19 02/20/19 06:59 06:59 06:59 Intake Total 2600 500 Output Total 450 1850 Balance 2150 -1350 Result Diagrams: 02/19/19 05:21 02/19/19 05:21 Additional Labs: Accuchecks 02/19/19 02/19/19 02/18/19 11:29 04:26 20:15 POC Glucose 324 H 283 H 255 H 02/18/19 16:59 POC Glucose 287 H Hospitalist ROS - Medication Medications: Active Medications Generic Name Dose Route Start Last Admin Trade Name Freq PRN Reason Stop Dose Admin Albuterol/Ipratropium 3 ml 02/18/19 13:00 02/19/19 12:36 Duoneb NEB 3 ml [id number] KATHY Administration Amitriptyline HCl 50 mg 02/18/19 21:00 02/18/19 16:47 Elavil PO Not Given HS KATHY Amlodipine Besylate 10 mg 02/17/19 21:00 02/18/19 20:30 Norvasc PO 10 mg HS KATHY Administration Atenolol 50 mg 02/19/19 09:00 02/19/19 09:04 Tenormin PO 50 mg DAILY KATHY Administration Atorvastatin Calcium 20 mg 02/18/19 09:00 02/19/19 09:04 Lipitor PO 20 mg DAILY KATHY Administration Bupropion HCl 150 mg 02/18/19 09:00 02/19/19 09:04 Wellbutrin Xl PO 150 mg DAILY KATHY Administration Doxazosin Mesylate 2 mg 02/18/19 09:00 02/19/19 09:04 Cardura PO 2 mg DAILY KATHY Administration Glipizide 10 mg 02/18/19 07:30 02/19/19 09:03 Glucotrol Xl PO 10 mg DAILY-AC KATHY Administration Ceftriaxone Sodium 2 gm/ 100 mls @ 200 mls/hr 02/19/19 08:00 02/19/19 09:04 Sodium Chloride IVPB 100 mls Q24HR KATHY Administration Insulin Human Lispro 0 units 02/17/19 16:13 02/17/19 21:28 Humalog SC 3 unit .BEDTIME SLIDING SC PRN Administration Bedtime Correctional Scale Metformin HCl 500 mg 02/17/19 21:00 02/19/19 11:35 Glucophage PO 500 mg 1200,1700,2100 KATHY Administration Morphine Sulfate 2 mg 02/18/19 03:09 02/19/19 11:34 Morphine SLOW IVP 2 mg Q4H PRN Administration Severe Pain (7-10) Pantoprazole Sodium 40 mg 02/18/19 09:00 02/19/19 09:04 Protonix PO 40 mg DAILY KATHY Administration Simethicone 80 mg 02/17/19 20:35 02/17/19 22:57 Mylicon Chewable PO 80 mg PCHS PRN Administration Gas Pain Spironolactone 25 mg 02/18/19 09:00 02/19/19 09:04 Aldactone PO 25 mg QAM KATHY Administration Tramadol HCl 50 mg 02/17/19 20:52 02/19/19 09:10 Ultram PO 50 mg QID PRN Administration Pain - Exam General Appearance: awake alert Eye: anicteric sclera ENT: normocephalic atraumatic Neck: supple, symmetric, no JVD Heart: RRR Respiratory: no wheezes, no ronchi, normal chest expansion Gastrointestinal: soft, non-distended, normal bowel sounds Gastrointestinal - other findings: mild diffuse tenderness Extremities: no cyanosis, no edema Neurological: cranial nerve grossly intact, no focal deficits Psychiatric: A&O x 3 Hosp A/P (1) Acute pyelonephritis Code(s): N10 - ACUTE PYELONEPHRITIS Status: Acute (2) Bacteremia Code(s): R78.81 - BACTEREMIA Status: Acute (3) Sepsis Code(s): A41.9 - SEPSIS, UNSPECIFIED ORGANISM Status: Acute Qualifiers: Sepsis type: Escherichia coli Sepsis acute organ dysfunction status: with acute organ dysfunction Severe sepsis shock status: without septic shock (4) UTI (urinary tract infection) Status: Acute Qualifiers: Urinary tract infection type: acute cystitis Hematuria presence: without hematuria Qualified Code(s): N30.00 - Acute cystitis without hematuria (5) Anxiety and depression Code(s): F41.9 - ANXIETY DISORDER, UNSPECIFIED; F32.9 - MAJOR DEPRESSIVE DISORDER, SINGLE EPISODE, UNSPECIFIED Status: Chronic (6) BPH (benign prostatic hyperplasia) Code(s): N40.0 - BENIGN PROSTATIC HYPERPLASIA WITHOUT LOWER URINRY TRACT SYMP Status: Chronic Qualifiers: Lower urinary tract symptom presence: symptoms present (7) CAD (coronary artery disease) Code(s): I25.10 - ATHSCL HEART DISEASE OF [place] CORONARY ARTERY W/O ANG PCTRS Status: Chronic Qualifiers: Coronary Disease-Associated Artery/Lesion type: [place] artery [place] vs. transplanted heart: [place] heart Associated angina: without angina Qualified Code(s): I25.10 - Atherosclerotic heart disease of [place] coronary artery without angina pectoris (8) GERD (gastroesophageal reflux disease) Code(s): K21.9 - GASTRO-ESOPHAGEAL REFLUX DISEASE WITHOUT ESOPHAGITIS Status: Chronic (9) HTN (hypertension) Code(s): I10 - ESSENTIAL (PRIMARY) HYPERTENSION Status: Chronic Qualifiers: Hypertension type: essential hypertension Qualified Code(s): I10 - Essential (primary) hypertension (10) Hyponatremia Code(s): E87.1 - HYPO-OSMOLALITY AND HYPONATREMIA Status: Acute - Plan Increase Rocephin to 2 gram daily. Change sliding scale to moderate dose Continue other treatments increase activity Get urine and serum osmolality
[2019-02-19] MEDS: Amitriptyline HCl 25 MG TAB PO SCH (20:40)
[2019-02-19] MEDS: Amlodipine 10 MG TAB PO SCH (20:41)
[2019-02-20 05:50] LABS: #Lymphocytes 0.6 thou/uL (1.20-3.40); #Monocytes 0.7 thou/uL (0.11-0.59); #Neutrophils 4.7 thou/uL (1.40-6.50); %Basophils 0.2 % (0.0-1.0); %Eosinophils 0.2 % (0.0-10.0); %Lymphocytes 9.3 % (21.0-51.0); %Monocytes 11.6 % (0.0-10.0); %Neutrophils 78.7 % (42.0-75.0); Hemoglobin 10.1 g/dL (14.0-18.0); Mean Corpuscular HGB CONC 33.6 g/dL (32.0-36.0); Mean Corpuscular Hemoglobin 28.9 pg (27.0-31.0); Mean Platelet Volume 9.4 fL (7.4-10.4); Platelet Count 135 thou/uL (130-400); RBC Distribution Width 12.1 % (11.5-14.5)
[2019-02-20 06:08] LABS: Anion Gap 13 mmol/L (10-20); BUN (Urea Nitrogen) 11 mg/dL (8.4-25.7); Calc. Creatinine Clearance 103 mL/min (70-130); Calcium 8.2 mg/dL (7.8-10.44); Carbon Dioxide 25 mmol/L (23-31); Chloride 96 mmol/L (98-107); Estimated GFR-MDRD 81; Glucose 293 mg/dL (80-115); Potassium 3.7 mmol/L (3.5-5.1); Sodium 130 mmol/L (136-145)
[2019-02-20] MEDS: Bupropion 150 MG XL TAB PO SCH (09:04)
[2019-02-20] MEDS: Atenolol 50 MG TAB PO SCH (09:04)
[2019-02-20] MEDS: Doxazosin 2 MG TAB PO SCH (09:05)
[2019-02-20] MEDS: Atorvastatin Calcium 20 MG TAB PO SCH (09:05)
[2019-02-20] MEDS: Spironolactone 25 MG TAB PO SCH (09:06)
[2019-02-20] MEDS: cefTRIAXone\\ROCEPHIN 2 GM in Sodium Chloride 0.9% 100 ML IVPB SCH (09:06)
--- NOTE | 2019-02-20 12:45 | PDOC.HOSPP ---
- Subjective Encounter Date: 02/20/19 Encounter Time: 11:41 Subjective: 64 y/o male with BPH s/p TURP, DM, HTN and recurrent UTI admitted due to dysuria associated with positive blood and urine cultures. Patient was seen in the ED a day prior to admission and was found to have UTI associated with generalized weakness and fall but he declined admission but had to be called bach when urine and blood culture were positive.CT abd/pelvis showed features of bilateral pyelonephritis. Oral intake is poor mostly free water. - Objective Vital Signs & Weight: Vital Signs (12 hours) Temp Pulse Resp BP BP BP Pulse Ox 02/20/19 12:31 104 H 20 91 L 02/20/19 09:04 104 H 136/78 02/20/19 07:41 99.1 F 104 H 20 136/78 91 L 02/20/19 07:09 94 L 02/20/19 07:08 92 20 94 L 02/20/19 04:04 99.8 F H 99 18 146/78 H 93 L Weight Weight 199 lb 9.344 oz I&O: 02/19/19 02/20/19 02/21/19 06:59 06:59 06:59 Intake Total 500 450 Output Total 1850 700 Balance -1350 -250 Result Diagrams: 02/20/19 05:31 02/20/19 05:31 Additional Labs: Accuchecks 02/20/19 02/20/19 02/19/19 11:19 04:06 19:48 POC Glucose 262 H 273 H 282 H 02/19/19 16:20 POC Glucose 269 H Hospitalist ROS - Medication Medications: Active Medications Generic Name Dose Route Start Last Admin Trade Name L[place] PRN Reason Stop Dose Admin Albuterol/Ipratropium 3 ml 02/18/19 13:00 02/20/19 12:31 Duoneb NEB 3 ml [id number] KATHY Administration Amitriptyline HCl 50 mg 02/18/19 21:00 02/19/19 20:40 Elavil PO 50 mg HS KATHY Administration Amlodipine Besylate 10 mg 02/17/19 21:00 02/19/19 20:41 Norvasc PO 10 mg HS KATHY Administration Atenolol 50 mg 02/19/19 09:00 02/20/19 09:04 Tenormin PO 50 mg DAILY KATHY Administration Atorvastatin Calcium 20 mg 02/18/19 09:00 02/20/19 09:05 Lipitor PO 20 mg DAILY KATHY Administration Bupropion HCl 150 mg 02/18/19 09:00 02/20/19 09:04 Wellbutrin Xl PO 150 mg DAILY KATHY Administration Doxazosin Mesylate 2 mg 02/18/19 09:00 02/20/19 09:05 Cardura PO 2 mg DAILY KATHY Administration Glipizide 10 mg 02/18/19 07:30 02/20/19 09:04 Glucotrol Xl PO 10 mg DAILY-AC KATHY Administration Ceftriaxone Sodium 2 gm/ 100 mls @ 200 mls/hr 02/19/19 08:00 02/20/19 09:06 Sodium Chloride IVPB 100 mls Q24HR KATHY Administration Insulin Human Lispro 0 units 02/17/19 16:13 02/17/19 21:28 Humalog SC 3 unit .BEDTIME SLIDING SC PRN Administration Bedtime Correctional Scale Metformin HCl 500 mg 02/17/19 21:00 02/19/19 20:40 Glucophage PO 500 mg 1200,1700,2100 KATHY Administration Morphine Sulfate 2 mg 02/18/19 03:09 02/19/19 20:41 Morphine SLOW IVP 2 mg Q4H PRN Administration Severe Pain (7-10) Pantoprazole Sodium 40 mg 02/18/19 09:00 02/20/19 09:05 Protonix PO 40 mg DAILY KATHY Administration Simethicone 80 mg 02/17/19 20:35 02/17/19 22:57 Mylicon Chewable PO 80 mg PCHS PRN Administration Gas Pain Sodium Chloride 10 ml 02/17/19 15:20 02/20/19 09:06 Flush - Normal Saline IVF 10 ml PRN PRN Administration Saline Flush Spironolactone 25 mg 02/18/19 09:00 02/20/19 09:06 Aldactone PO 25 mg QAM KATHY Administration Tramadol HCl 50 mg 02/17/19 20:52 02/19/19 17:12 Ultram PO 50 mg QID PRN Administration Pain - Exam General Appearance: awake alert General - other findings: fatigued Eye: anicteric sclera ENT: normocephalic atraumatic Neck: no JVD Heart: RRR Respiratory: no wheezes, no rales, no ronchi, normal chest expansion Gastrointestinal: soft, non-tender, non-distended, normal bowel sounds Extremities: no cyanosis, no edema Neurological: cranial nerve grossly intact, no focal deficits Psychiatric: A&O x 3 Hosp A/P (1) Acute pyelonephritis Code(s): N10 - ACUTE PYELONEPHRITIS Status: Acute (2) Bacteremia Code(s): R78.81 - BACTEREMIA Status: Acute (3) Sepsis Code(s): A41.9 - SEPSIS, UNSPECIFIED ORGANISM Status: Acute Qualifiers: Sepsis type: Escherichia coli Sepsis acute organ dysfunction status: with acute organ dysfunction Severe sepsis shock status: without septic shock (4) UTI (urinary tract infection) Status: Acute Qualifiers: Urinary tract infection type: acute cystitis Hematuria presence: without hematuria Qualified Code(s): N30.00 - Acute cystitis without hematuria (5) Anxiety and depression Code(s): F41.9 - ANXIETY DISORDER, UNSPECIFIED; F32.9 - MAJOR DEPRESSIVE DISORDER, SINGLE EPISODE, UNSPECIFIED Status: Chronic (6) BPH (benign prostatic hyperplasia) Code(s): N40.0 - BENIGN PROSTATIC HYPERPLASIA WITHOUT LOWER URINRY TRACT SYMP Status: Chronic Qualifiers: Lower urinary tract symptom presence: symptoms present (7) CAD (coronary artery disease) Code(s): I25.10 - ATHSCL HEART DISEASE OF [place] CORONARY ARTERY W/O ANG PCTRS Status: Chronic Qualifiers: Coronary Disease-Associated Artery/Lesion type: [place] artery [place] vs. transplanted heart: [place] heart Associated angina: without angina Qualified Code(s): I25.10 - Atherosclerotic heart disease of [place] coronary artery without angina pectoris (8) GERD (gastroesophageal reflux disease) Code(s): K21.9 - GASTRO-ESOPHAGEAL REFLUX DISEASE WITHOUT ESOPHAGITIS Status: Chronic (9) HTN (hypertension) Code(s): I10 - ESSENTIAL (PRIMARY) HYPERTENSION Status: Chronic Qualifiers: Hypertension type: essential hypertension Qualified Code(s): I10 - Essential (primary) hypertension (10) Hyponatremia Code(s): E87.1 - HYPO-OSMOLALITY AND HYPONATREMIA Status: Acute - Plan Start NS at 75 cc/hr. though urine and plasma osmolality are suggestive of SIADH , oral solute intake is very poor with mostly free water intake. hyponatremia that is worsening may be due to poor solute intake. Continue Rocephin to 2 gram daily. Change sliding scale to aggressive sliding scale to get better BP control. Continue other treatments get repeat BMP in the am,. Start incentive spirometry
[2019-02-20] MEDS: Sodium Chloride 0.9% 1,000 ML IV SCH (13:29)
[2019-02-20] MEDS: metFORMIN 500 MG TAB PO SCH ×3 (13:30→21:25)
[2019-02-20] MEDS: HumaLOG 300 UNITS/3 ML VIAL SC PRN (13:30)
[2019-02-20 19:33] LABS: Creatinine, Urine 40.66 mg/dL (63-166)
[2019-02-20] MEDS: Amitriptyline HCl 25 MG TAB PO SCH (21:25)
[2019-02-20] MEDS: Amlodipine 10 MG TAB PO SCH (21:25)
[2019-02-21] MEDS: Sodium Chloride 0.9% 1,000 ML IV SCH ×2 (02:00→06:12)
[2019-02-21 05:21] LABS: #Basophils 0.1 thou/uL (0.0-0.2); #Eosinphils 0.1 thou/uL (0.0-0.7); #Lymphocytes 0.5 thou/uL (1.20-3.40); #Monocytes 0.6 thou/uL (0.11-0.59); #Neutrophils 4.2 thou/uL (1.40-6.50); %Basophils 1.4 % (0.0-1.0); %Lymphocytes 9.4 % (21.0-51.0); %Monocytes 10.7 % (0.0-10.0); %Neutrophils 77.5 % (42.0-75.0); Hemoglobin 10.2 g/dL (14.0-18.0); Mean Corpuscular HGB CONC 33.8 g/dL (32.0-36.0); Mean Corpuscular Hemoglobin 29.3 pg (27.0-31.0); Mean Corpuscular Volume 86.6 fL (78.0-98.0); Mean Platelet Volume 9.3 fL (7.4-10.4); Platelet Count 165 thou/uL (130-400); RBC Distribution Width 12.1 % (11.5-14.5); Red Blood Cell (RBC) Count 3.49 mill/uL (4.70-6.10); White Blood Cell (WBC) Count 5.5 thou/uL (4.8-10.8)
[2019-02-21 05:43] LABS: Anion Gap 12 mmol/L (10-20); BUN (Urea Nitrogen) 9 mg/dL (8.4-25.7); Calc. Creatinine Clearance 113 mL/min (70-130); Calcium 8.1 mg/dL (7.8-10.44); Carbon Dioxide 24 mmol/L (23-31); Chloride 100 mmol/L (98-107); Estimated GFR-MDRD 90; Glucose 300 mg/dL (80-115); Potassium 3.5 mmol/L (3.5-5.1); Sodium 132 mmol/L (136-145)
[2019-02-21] MEDS: HumaLOG 300 UNITS/3 ML VIAL SC PRN ×3 (06:14→17:16)
[2019-02-21] MEDS: Atenolol 50 MG TAB PO SCH (08:26)
[2019-02-21] MEDS: cefTRIAXone\\ROCEPHIN 2 GM in Sodium Chloride 0.9% 100 ML IVPB SCH (08:26)
[2019-02-21] MEDS: Bupropion 150 MG XL TAB PO SCH (08:27)
[2019-02-21] MEDS: Spironolactone 25 MG TAB PO SCH (08:27)
[2019-02-21] MEDS: Atorvastatin Calcium 20 MG TAB PO SCH (08:27)
[2019-02-21] MEDS: Doxazosin 2 MG TAB PO SCH (08:27)
[2019-02-21] MEDS: metFORMIN 500 MG TAB PO SCH ×3 (13:07→21:07)
--- NOTE | 2019-02-21 14:07 | PDOC.HOSPP ---
- Subjective Encounter Date: 02/21/19 (f/u bacteremia) Encounter Time: 14:06 Subjective: Pt asking when he will stop being sick. Hx of recurrent UTI's despite surgical tx. Feels weak. Denies n/v/abd pain/diarrhea/cp/sob. - Objective Vital Signs & Weight: Vital Signs (12 hours) Temp Pulse Resp BP BP Pulse Ox 02/21/19 13:14 93 93 L 02/21/19 08:26 89 155/78 H 02/21/19 07:59 89 16 95 02/21/19 06:15 98.2 F 94 16 143/80 H 96 Weight Weight 199 lb 9.344 oz I&O: 02/20/19 02/21/19 02/22/19 06:59 06:59 06:59 Intake Total 450 Output Total 700 Balance -250 Result Diagrams: 02/21/19 20:44 02/21/19 20:44 Additional Labs: Accuchecks 02/21/19 02/21/19 02/21/19 11:15 05:37 02:50 POC Glucose 263 H 289 H 212 H 02/20/19 02/20/19 21:04 16:48 POC Glucose 178 H 150 H Hospitalist ROS - Review of Systems Cardiovascular: denies: chest pain, palpitations, orthopnea, paroxysmal noc. dyspnea, edema, light headedness, other Gastrointestinal: denies: nausea, vomiting, abdominal pain, diarrhea, constipation, melena, hematochezia, other Skin: denies: rash, lesions, markus, bruising, other - Medication Medications: Active Medications Generic Name Dose Route Start Last Admin Trade Name Husam PRN Reason Stop Dose Admin Amitriptyline HCl 50 mg 02/18/19 21:00 02/20/19 21:25 Elavil PO 50 mg HS KATHY Administration Amlodipine Besylate 10 mg 02/17/19 21:00 02/20/19 21:25 Norvasc PO 10 mg HS KATHY Administration Atenolol 50 mg 02/19/19 09:00 02/21/19 08:26 Tenormin PO 50 mg DAILY KATHY Administration Atorvastatin Calcium 20 mg 02/18/19 09:00 02/21/19 08:27 Lipitor PO 20 mg DAILY KATHY Administration Bupropion HCl 150 mg 02/18/19 09:00 02/21/19 08:27 Wellbutrin Xl PO 150 mg DAILY KATHY Administration Doxazosin Mesylate 2 mg 02/18/19 09:00 02/21/19 08:27 Cardura PO 2 mg DAILY KATHY Administration Glipizide 10 mg 02/18/19 07:30 02/21/19 08:27 Glucotrol Xl PO 10 mg DAILY-AC KATHY Administration Ceftriaxone Sodium 2 gm/ 100 mls @ 200 mls/hr 02/19/19 08:00 02/21/19 08:26 Sodium Chloride IVPB 100 mls Q24HR KATHY Administration Insulin Human Lispro 0 units 02/17/19 16:13 02/21/19 06:14 Humalog SC 3 unit .BEDTIME SLIDING SC PRN Administration Bedtime Correctional Scale Insulin Human Lispro 0 units 02/20/19 12:39 02/21/19 13:08 Humalog SC 9 unit .AGGRESSIVE SLIDING PRN Administration Aggressive Correctional Scale Metformin HCl 500 mg 02/17/19 21:00 02/21/19 13:07 Glucophage PO 500 mg 1200,1700,2100 KATHY Administration Morphine Sulfate 2 mg 02/18/19 03:09 02/19/19 20:41 Morphine SLOW IVP 2 mg Q4H PRN Administration Severe Pain (7-10) Pantoprazole Sodium 40 mg 02/18/19 09:00 02/21/19 08:27 Protonix PO 40 mg DAILY KATHY Administration Simethicone 80 mg 02/17/19 20:35 02/17/19 22:57 Mylicon Chewable PO 80 mg PCHS PRN Administration Gas Pain Sodium Chloride 10 ml 02/17/19 15:20 02/20/19 09:06 Flush - Normal Saline IVF 10 ml PRN PRN Administration Saline Flush Spironolactone 25 mg 02/18/19 09:00 02/21/19 08:27 Aldactone PO 25 mg QAM KATHY Administration Tramadol HCl 50 mg 02/17/19 20:52 02/19/19 17:12 Ultram PO 50 mg QID PRN Administration Pain - Exam General Appearance: NAD Heart: RRR, no murmur Respiratory: CTAB, no wheezes, no rales, no ronchi Gastrointestinal: soft, non-tender, non-distended, normal bowel sounds Extremities: no cyanosis, no clubbing, no edema Psychiatric: normal affect Hosp A/P (1) Bacteremia Code(s): R78.81 - BACTEREMIA Status: Acute (2) Acute pyelonephritis Code(s): N10 - ACUTE PYELONEPHRITIS Status: Acute (3) Diabetes mellitus Code(s): E11.9 - TYPE 2 DIABETES MELLITUS WITHOUT COMPLICATIONS Status: Chronic Qualifiers: Diabetes mellitus type: type 2 Diabetes mellitus senior living insulin use: without senior living use (4) Sepsis Code(s): A41.9 - SEPSIS, UNSPECIFIED ORGANISM Status: Resolved Qualifiers: Sepsis type: Escherichia coli Sepsis acute organ dysfunction status: with acute organ dysfunction Severe sepsis shock status: without septic shock (5) Anxiety and depression Code(s): F41.9 - ANXIETY DISORDER, UNSPECIFIED; F32.9 - MAJOR DEPRESSIVE DISORDER, SINGLE EPISODE, UNSPECIFIED Status: Chronic (6) BPH (benign prostatic hyperplasia) Code(s): N40.0 - BENIGN PROSTATIC HYPERPLASIA WITHOUT LOWER URINRY TRACT SYMP Status: Chronic Qualifiers: Lower urinary tract symptom presence: symptoms present (7) Dyslipidemia Code(s): E78.5 - HYPERLIPIDEMIA, UNSPECIFIED Status: Chronic (8) GERD (gastroesophageal reflux disease) Code(s): K21.9 - GASTRO-ESOPHAGEAL REFLUX DISEASE WITHOUT ESOPHAGITIS Status: Chronic Qualifiers: Esophagitis presence: esophagitis presence not specified Qualified Code(s) : K21.9 - Gastro-esophageal reflux disease without esophagitis (9) HTN (hypertension) Code(s): I10 - ESSENTIAL (PRIMARY) HYPERTENSION Status: Chronic Qualifiers: Hypertension type: essential hypertension Qualified Code(s): I10 - Essential (primary) hypertension (10) Acute respiratory failure with hypoxemia Code(s): J96.01 - ACUTE RESPIRATORY FAILURE WITH HYPOXIA Status: Acute - Plan - Consult ID with regards to current bacteremia/acute pyelo - duration and type of abx, and longer term recurrent UTI - start lantus HS as blood sugars are uncontrolled. Continue metformin, glipizide, short-acting insulin - continue other home meds as ordered - sodium corrects for glucose -> d/c IVF - d/c nebs as pt without pulmonary complaints anticipated d/c with ID input regarding abx dvt prophy - ambulatory gi prophy - on home PPI code status full reviewed plan of care with patient, no questions or further needs at end of eval
--- NOTE | 2019-02-21 18:47 | CON ---
DATE OF CONSULTATION: 02/21/2019 HISTORY OF PRESENT ILLNESS: Mr. Vo is a 64-year-old diabetic male, well known to il. He was previously followed by Dr. Jonas for history of prostatitis. Then, he subsequently transitioned care to [place]. He underwent previous workup with cystoscopy CT. He is known to have a urethral stricture, which we previously dilated. Due to recurrent UTI, despite TURP, we did perform a restaging cystoscopy recently on December 02, which demonstrated a good TUR defect. He was given routine followup as he had no significant postvoid residual concern. Daughter had called while I was off service with possible UTI, then the patient presented to the emergency room, had a urine culture and blood culture. The patient was discharged with Levaquin after Rocephin and meropenem provided. However, he did not fill his Levaquin, he was called back to the hospital as his blood culture and urine culture are positive and currently admitted to the Medical Service. He has been afebrile, his lower back pain continues to improve. His dysuria has improved. Urge incontinence, which was present with UTI has significantly improved. He is feeling somewhat antsy, wanting to go home. His sugars have been poorly controlled while in-house running in 300s. He did relate that prior to presenting to the emergency room, he had 7 days of dysuria, however, did not follow up with his family. PAST MEDICAL HISTORY: Includes hypercholesterolemia, hypertension, GERD, diabetes, coronary artery disease, allergy, severe L5-S1 stenosis, cervical radiculopathy, and history of small-bowel obstruction. PAST SURGICAL HISTORY: 1. Cardiac cath. 2. Cholecystectomy. 3. Small bowel resection. 4. Prior history of cystoscopy. 5. Bulbar stricture dilatation. 6. Back surgery by Dr. Klein in February 2017. 7. TURP in January 2018. 8. He required fulguration of bleeding from prostatic urethra in February 2018. 9. C3 laminectomy on September 05, 2018. 10. On December 02, 2018, staging cystoscopy failed to demonstrate obvious obstruction of concern. Bladder was grossly unremarkable. REVIEW OF SYSTEMS: Ten-point review of systems as above, otherwise noncontributory. CURRENT MEDICATIONS: Include: 1. Rocephin. 2. Amitriptyline. 3. Norvasc. 4. Atenolol. 5. Lipitor. 6. Humalog. 7. Glucagon. 8. Glucotrol. 9. Cardura 2 mg one p.o. daily. 10. Metformin. 11. Spironolactone. 12. Tramadol. 13. Protonix. PHYSICAL EXAMINATION: VITAL SIGNS: His vital signs are stable. He is afebrile. I's and O's; the patient using urinal. He has voided without significant issue. Denies sensation of incomplete void. PVR today that I check myself, in which he voided 300 mL of clear yellow urine. PVR is minimal at 40 mL. GENERAL: The patient appears to be in no distress. HEENT: Grossly unremarkable. HEART: Regular rate. LUNGS: Clear. ABDOMEN: Morbidly obese, protuberant. No gross CVA tenderness. : Uncircumcised foreskin retracts without significant issues. Testes are descended. EXTREMITIES: No cyanosis, clubbing, or edema. LABORATORY DATA: Recent A1c 7.0. White count on admission is 12, currently 5.5, hemoglobin 10, platelet 165. Creatinine 0.86, glucose running from 260 to 335, 350. UA; 2+ nitrites, 20 to 50 rbc's, 50 leukocytes, and 1+ bacteria. Blood culture and urine culture E. coli, pansensitive. CT of the abdomen and pelvis, which I reviewed myself, demonstrates bilateral perinephric stranding with small renal enhancement defect in the left kidney compatible with bilateral pyelonephritis. No evidence of hydronephrosis. Bladder is grossly unremarkable. IMPRESSION AND PLAN: Mr. Vo is a 64-year-old male with history of diabetes, BPH, status post transurethral resection of the prostate, prior history of urethral stricture dilatation, admitted for Escherichia coli urosepsis/pyelonephritis. Currently, he is on IV Rocephin appropriate sensitivity. Dr. Banerjee has been consulted, which I discussed this case at bedside. Due to recurrent urinary tract infection, possible prostatitis component complicated, 4 weeks of antibiotics would be recommended. As it is sensitive to Levaquin from my perspective, 750 mg of Levaquin for course of 4 weeks is okay if it is approved with Dr. Banerjee. Increase water consumption and strict control of his diabetes have been discussed with the patient in detail. Job ID: [id number]
--- NOTE | 2019-02-21 18:53 | PQF ---
BONNIE CAN JARETH MCPHERSON [id number] CLINICAL DOCUMENTATION IMPROVEMENT CLARIFICATION FORM: ICD-10 Updated PLEASE DO AN ADDENDUM TO THE PROGRESS NOTE WITH ANY DOCUMENTATION UPDATES OR ADDITIONS AND CARRY THROUGH TO DC SUMMARY. THANK YOU. DATE: 02/21/19 ATTN: Dr. Barber Please exercise your independent, professional judgment in responding to the clarification form. Clinical indicators are provided on the bottom of this form for your review Please check appropriate box(s): [XX ] Acute Respiratory Failure: [ XX ] with Hypoxia [ ] Acute Respiratory Failure due to: (etiology) [ ] Respiratory Insufficiency [ ] Hypoxia [ ] Other diagnosis [ ] Unable to determine In addition, please specify: Present on Admission (POA): [ XX ] Yes [ ] No [ ] Unable to determine For continuity of documentation, please document condition throughout progress notes and discharge summary. Thank You. CLINICAL INDICATORS - SIGNS / SYMPTOMS / LABS / RESULTS AND LOCATION IN MR Decreased oxygen saturation (<90% room air or < 95% on oxygen). Cyanosis/Hypoxia -> 02/17 VS: 90% on RA--> 94% on 2L NC 02/18 RR 32, 91% on 3L NC 02/18 [place]: "Diffuse wheezing bilaterally. CT showed bilateral pyelonephritis and bilateral small pleural effusions. Pulse 122, 91% on 2L" RISK FACTORS / RESULTS AND LOCATION IN MR Admitted for "Sepsis" per 02/17 Dr. Rowland TREATMENTS / RESULTS AND LOCATION IN MR Oxygen--> 2L 02/17--3L 02/18 to date per orders Monitoring of oxygenation status 02/17 orders Respiratory treatments--> 02/18 Duo nebs Q6H per orders Diuresis--> 02/18 to date: Lasix 40 mg IV x2 per orders IV antibiotics: 02/17 Meropenem 2gm IV 02/17 x1; Rocephin 1gm 02/17 to 02/18--> Rocephin 2gm IV 02/19-02/21; 123 orders for Levaquin 750mg po daily per orders Acute Respiratory Failure: ABG pH < 7.35 or > 7.45; Decreased oxygen saturation (<90% room air or < 95% on oxygen); PCO2 > 50 mm Hg; PO2 < 60 mm Hg; Labored or rapid respirations ARDS: Dx Criteria [[place] ARDS]: Respiratory symptoms within one week of a known clinical insult (e.g. shock, infection, surgery, trauma) Bilateral opacities in CXR/Chest CT not due to CHF or fluid (This form is maintained as a part of the permanent medical record) 2014 [employer], [email or web address]. All Rights Reserved Ethel Hdz RN, BSN, CCDS [email or web address]
[2019-02-21 20:50] LABS: #Eosinphils 0.1 thou/uL (0.0-0.7); #Lymphocytes 0.8 thou/uL (1.20-3.40); #Monocytes 0.7 thou/uL (0.11-0.59); #Neutrophils 5.3 thou/uL (1.40-6.50); %Basophils 0.1 % (0.0-1.0); %Eosinophils 1.2 % (0.0-10.0); %Lymphocytes 11.3 % (21.0-51.0); %Neutrophils 77.4 % (42.0-75.0); Hemoglobin 10.8 g/dL (14.0-18.0); Mean Corpuscular HGB CONC 34.1 g/dL (32.0-36.0); Mean Corpuscular Hemoglobin 29.9 pg (27.0-31.0); Mean Corpuscular Volume 87.5 fL (78.0-98.0); Mean Platelet Volume 8.7 fL (7.4-10.4); Platelet Count 195 thou/uL (130-400); RBC Distribution Width 12.2 % (11.5-14.5); Red Blood Cell (RBC) Count 3.62 mill/uL (4.70-6.10); White Blood Cell (WBC) Count 6.9 thou/uL (4.8-10.8)
--- NOTE | 2019-02-21 20:53 | CON ---
DATE OF CONSULTATION: 02/21/2019 REASON FOR CONSULTATION: Pyelonephritis. HISTORY OF PRESENT ILLNESS: A 64-year-old, whom I had seen in 2018 at the end of the year, when he presented with positive urinary culture following removal of clot after TURP. At that time, we recommended against treatment because the patient was not symptomatic. He had a history of prior UTIs with invasive features, at least 2 or 3 episodes before the TURP was completed. In August 2018, the patient had cervical cord decompression with C3, C4, and C5 laminectomies and posterolateral fusion. He was okay until about 3 weeks before this admission, when he developed dysuria. After that, he started having some urinary incontinence and change in the odor of his urine. Then, on February 16, he presented to the emergency room because of dysuria. He did have fever and chills, but did not check his temperature. He had one episode of fall as well. He was given levofloxacin 750 orally. The family was recommended admission, but they declined it and the patient was discharged on oral levofloxacin. The next day, the blood cultures turned positive and he was referred for admission. Thus far, we have 2 sets of blood cultures and one urinary sample with E coli with a broad susceptibility profile. Dr. Gibson has seen the patient. He currently is still feeling upset because of this episode. He denies headaches. No visual symptoms, sore throat, odynophagia, or dysphagia. No cough or sputum production. No chest pain. No dyspnea. He has chronic pain in the lower back, midline around L4-L5, which is unchanged from previous events. He is voiding without difficulty now. No joint symptoms. No neurological symptoms. PAST MEDICAL HISTORY: Depression; coronary artery disease; type 2 diabetes; chronic low back pain; C-spine stenosis, status post decompressive surgery; UTIs; and BPH with TURP. FAMILY HISTORY: Hypertension and diabetes. SURGICAL HISTORY: Includes cholecystectomy, bowel resection, cystoscopy, and laminectomy. SOCIAL HISTORY: Never smoker. He worked at [employer] in the [employer] area. . ALLERGIES: LISINOPRIL AND LOSARTAN WITH COUGH AND SKIN RASH. PHYSICAL EXAMINATION: VITAL SIGNS: T-max 99.7, blood pressure 150/78, pulse 93, respirations 16, and O2 saturation 95%. SKIN: No areas of skin breakdown. No lymphadenopathy. HEENT: Ocular movements conjugate. Oral cavity, still quite few teeth in place in fairly decent shape. NECK: Supple. No jugular vein distention. No thyromegaly. LUNGS: Symmetric. Clear breath sounds. HEART: S1 and S2, regular rate. No S3 or S4. ABDOMEN: Soft, not distended or tender. No ascites. : No bladder distention. MUSCULOSKELETAL: No joint inflammatory activity. EXTREMITIES: Moves extremities equally. Pulses are 1+ in dorsalis pedis. NEUROLOGIC: Cognitive function appears to be intact. LABORATORY DATA: White cell count is down from 12.7 to 5.5, hemoglobin 10.2, and platelets 165. Sodium 132, creatinine 0.86, calcium 8.5, bilirubin 0.6, AST 38 , ALT 20, alkaline phosphatase 69, and albumin 3.8. Urinalysis with zot-[id number]-vt- count wbc's and protein 70. Echocardiogram with EF 60%. Left atrium is mildly dilated. Moderately enlarged right ventricular cavity. IMAGING DATA: Abdomen and pelvis CT with pyelonephritis, trace pleural effusions, mild amount of retained stool within the colon. ASSESSMENT: Type 2 diabetes, coronary artery disease, recent C-spine decompressive surgery, and now recrudescence of urinary tract infection with pyelonephritis with very sensitive strain of Escherichia coli with bacteremia. DISCUSSION: The differential diagnosis includes persistence of urinary retention, may be associated with an element of neurogenic bladder from his C-spine stenosis or maybe prostatitis. Recommend treating for 4 weeks in case he has an E. coli nidus still remaining in the prostate gland. It does not appear that he had any calculus in the prostate gland. Check postvoid residual bladder scan to make sure he is not retaining. Job ID: [id number] [facility]
[2019-02-21] MEDS ORDERED: Insulin Glargine 10 UNITS in Pre-Filled Syringe 1 EACH SC SCH (21:00)
--- NOTE | 2019-02-21 21:06 | PDOC.EVN ---
Event Note - Event Note Event Note: Called by RN for pt with increasing confusion noticed by daughter - confusion about location, about medications, seeing things in the room that are not present. Poor sleep last night. Pt had nausea and abd discomfort, reports 4 episodes of diarrhea today. O: VS reviewed, lungs ctab with good air movement, heart -normal s1/s2 without audible murmurs, abd soft +BS, non-tender. ext- no edema Impression: - delirium - likely multi-factorial from illness, hospitalization, medications * reviewed all meds with patient's daughter and corrected medication list. Reconcilled medications to order what pt takes at home, and restart home gabapentin * obtain updated labs to check for electrolyte abnormality - second shift supervisor to review * obtain c diff testing * encourage sleep tonight - RN to assist * d/c planned insulin as last blood sugar was 180 * pt on short acting glipizide bid - changed to this starting tomorrow * monitor for change reviewed plan of care with RN and patient's daughter, no questions or further needs at end of eval
[2019-02-21] MEDS: Amlodipine 10 MG TAB PO SCH (21:07)
[2019-02-21] MEDS: Amitriptyline HCl 25 MG TAB PO SCH (21:07)
[2019-02-21 21:14] LABS: ALT (SGPT) 34 U/L (8-55); AST (SGOT) 30 U/L (5-34); Albumin 3.4 g/dL (3.4-4.8); Alkaline Phosphatase 100 U/L (40-110); Anion Gap 15 mmol/L (10-20); BUN (Urea Nitrogen) 8 mg/dL (8.4-25.7); Bilirubin, Total 0.4 mg/dL (0.2-1.2); Calc. Creatinine Clearance 110 mL/min (70-130); Calcium 8.8 mg/dL (7.8-10.44); Carbon Dioxide 22 mmol/L (23-31); Chloride 104 mmol/L (98-107); Estimated GFR-MDRD 87; Globulin 3.3 g/dL (2.4-3.5); Glucose 196 mg/dL (80-115); Magnesium 1.9 mg/dL (1.6-2.6); Phosphorus 2.2 mg/dL (2.3-4.7); Potassium 3.5 mmol/L (3.5-5.1); Protein, Total 6.7 g/dL (5.8-8.1); Sodium 137 mmol/L (136-145)
[2019-02-21] MEDS ORDERED: PHOS-NAK 1 PKT PACK PO SCH (22:15)
[2019-02-22 05:48] LABS: #Eosinphils 0.1 thou/uL (0.0-0.7); #Lymphocytes 0.6 thou/uL (1.20-3.40); #Monocytes 0.7 thou/uL (0.11-0.59); #Neutrophils 5.5 thou/uL (1.40-6.50); %Basophils 0.3 % (0.0-1.0); %Eosinophils 1.7 % (0.0-10.0); %Lymphocytes 9.2 % (21.0-51.0); %Monocytes 9.3 % (0.0-10.0); %Neutrophils 79.5 % (42.0-75.0); Hemoglobin 10.4 g/dL (14.0-18.0); Mean Corpuscular HGB CONC 33.5 g/dL (32.0-36.0); Mean Corpuscular Hemoglobin 29.2 pg (27.0-31.0); Mean Platelet Volume 8.5 fL (7.4-10.4); Platelet Count 227 thou/uL (130-400); RBC Distribution Width 12.2 % (11.5-14.5); Red Blood Cell (RBC) Count 3.58 mill/uL (4.70-6.10)
[2019-02-22 06:08] LABS: Anion Gap 13 mmol/L (10-20); BUN (Urea Nitrogen) 6 mg/dL (8.4-25.7); Calc. Creatinine Clearance 117 mL/min (70-130); Calcium 8.4 mg/dL (7.8-10.44); Carbon Dioxide 23 mmol/L (23-31); Chloride 101 mmol/L (98-107); Estimated GFR-MDRD Greater than 90; Glucose 281 mg/dL (80-115); Potassium 3.3 mmol/L (3.5-5.1); Sodium 134 mmol/L (136-145)
--- NOTE | 2019-02-22 07:53 | PRG ---
DATE OF SERVICE: 02/22/2019 SUBJECTIVE: The patient is alert, sitter at bedside. Events of last night reviewed regarding mental status, confusion. OBJECTIVE: GENERAL: He appears to be alert, oriented x3. VITAL SIGNS: Stable. He is afebrile. ABDOMEN: Soft. No CVA tenderness appreciated. LABORATORY DATA: White count today is 7, hemoglobin 10, platelet 227. I did check his postvoid residual today yesterday which was minimal at 40 mL. IMPRESSION AND PLAN: Mr. Vo is a 64-year-old male with, 1. History of diabetes, history of urinary tract infection. 2. History of benign prostatic hypertrophy. Current admission due to Escherichia coli urosepsis. He is afebrile, with no evidence of leukocytosis. Currently, on Levaquin 750 with appropriate sensitivity. The patient needs aggressive control of his diabetes. From urologic perspective, the patient can be discharged home when medically deemed fit. Recommend antibiotic therapy for 4 weeks in concordance with Infectious Disease. Job ID: [id number] MTDD
[2019-02-22] MEDS ORDERED: Icosapent Ethyl 2 GM PO SCH (08:00)
[2019-02-22] MEDS: Atenolol 50 MG TAB PO SCH (08:25)
[2019-02-22] MEDS: glipiZIDE 10 MG TAB PO SCH ×2 (08:25→18:19)
[2019-02-22] MEDS: Aspirin 81 mg Enteric Coated Tablet PO SCH (08:27)
[2019-02-22] MEDS: Bupropion 150 MG XL TAB PO SCH (08:27)
[2019-02-22] MEDS: Spironolactone 25 MG TAB PO SCH (08:27)
[2019-02-22] MEDS: Atorvastatin Calcium 20 MG TAB PO SCH (08:27)
[2019-02-22] MEDS: Gabapentin 300 MG CAP PO SCH ×3 (08:27→21:34)
[2019-02-22] MEDS: Doxazosin 2 MG TAB PO SCH (08:27)
[2019-02-22] MEDS: HumaLOG 300 UNITS/3 ML VIAL SC PRN ×3 (08:32→21:35)
[2019-02-22] MEDS ORDERED: Potassium Chloride 20 MEQ TAB PO SCH (13:45)
[2019-02-22] MEDS: metFORMIN 500 MG TAB PO SCH ×2 (14:15→18:19)
--- NOTE | 2019-02-22 14:49 | PQF ---
BONNIE CAN JARETH MCPHERSON [id number] CLINICAL DOCUMENTATION IMPROVEMENT CLARIFICATION FORM: ICD-10 Updated PLEASE DO AN ADDENDUM TO THE PROGRESS NOTE WITH ANY DOCUMENTATION UPDATES OR ADDITIONS AND CARRY THROUGH TO DC SUMMARY. THANK YOU. DATE: 02/22/19 ATTN: Dr. Barber Please exercise your independent, professional judgment in responding to the clarification form. Clinical indicators are provided on the bottom of this form for your review Please check appropriate box(s): [ ] Encephalopathy: Type: [ ] Acute [ ] Subacute [ ] Chronic Etiology: [ ] Metabolic [ ] Toxic [ ] Drug induced: _ [ ] Unspecified [ ] in the setting of underlying dementia [ ] Other (please specify) [ ] Transient Alteration of Awareness [xx ] Other diagnosis __Delirium [ ] Unable to determine In addition, please specify: Present on Admission (POA): [ ] Yes [ XX ] No [ ] Unable to determine For continuity of documentation, please document condition throughout progress notes and discharge summary. Thank You. CLINICAL INDICATORS - SIGNS / SYMPTOMS / LABS / RESULTS AND LOCATION IN EMR 02/21(Sunil): "Called by RN for pt with increasing confusion noticed by daughter "; "Delirium-likely muti-factorial from illness, hospitalization, medications" Metabolic / electrolyte abnormality--> Labs: 02/17 NA 132, 02/18 NA 131, 02/19 NA 132, 02/20 NA 130, 02/21 NA 132 Blood culture: Positive E. Coli per 02/17 lab "Sepsis, UTI, bacteremia" per 02/17 Dr Rowland RISK FACTORS / RESULTS AND LOCATION IN EMR Infectious process--> "Sepsis, UTI, bacteremia" per 02/17 Dr Rowland Electrolyte imbalance--> 02/19 OBI: "Hyponatremia"; 02/20 Obi: "SIADH" TREATMENTS / RESULTS AND LOCATION IN EMR Sitter 02/22 orders Neurology consult 02/22 orders IV antibiotics--> Rocephin 1gm 02/17--02/18 Rocephin 1 gm 02/18; 02/19-02/21 Rocephin 2gm per orders IV fluids--> 02/17 NS 1 liter bolus then NS at 75 -12/2 per orders (This form is maintained as a part of the permanent medical record) 2014 [employer], [employer]. All Rights Reserved Ethel Hdz RN, BSN, CCDS [email or web address]
--- NOTE | 2019-02-22 15:08 | PDOC.HOSPP ---
- Subjective Encounter Date: 02/22/19 (f/u bacteremia) Encounter Time: 13:45 Subjective: Pt without complaints today - states his legs continue to feel weak but he is able to walk. Overnight required a sitter. Pt denies any pain, further diarrhea, n/v or any other concerns. Daughter notes he still has waxing/waning mental status - Objective Vital Signs & Weight: Vital Signs (12 hours) Temp Pulse Resp BP BP Pulse Ox 02/22/19 08:25 87 02/22/19 08:00 91 L 02/22/19 07:30 97.7 F 102 H 18 160/80 H 91 L 02/22/19 04:00 98.6 F 97 20 168/81 H 94 L Weight Weight 199 lb 9.344 oz I&O: 02/21/19 02/22/19 02/23/19 06:59 06:59 06:59 Intake Total 240 Balance 240 Result Diagrams: 02/22/19 05:34 02/22/19 05:34 Additional Labs: Accuchecks 02/22/19 02/22/19 02/21/19 12:07 05:35 19:52 POC Glucose 166 H 296 H 180 H 02/21/19 16:58 POC Glucose 226 H Hospitalist ROS - Medication Medications: Active Medications Generic Name Dose Route Start Last Admin Trade Name Laloq PRN Reason Stop Dose Admin Amitriptyline HCl 50 mg 02/18/19 21:00 02/21/19 21:07 Elavil PO 50 mg HS KATHY Administration Amlodipine Besylate 10 mg 02/17/19 21:00 02/21/19 21:07 Norvasc PO 10 mg HS KATHY Administration Aspirin 81 mg 02/22/19 09:00 02/22/19 08:27 Ecotrin PO 81 mg DAILY KATHY Administration Atenolol 50 mg 02/19/19 09:00 02/22/19 08:25 Tenormin PO 50 mg DAILY KATHY Administration Atorvastatin Calcium 20 mg 02/18/19 09:00 02/22/19 08:27 Lipitor PO 20 mg DAILY KATHY Administration Bupropion HCl 150 mg 02/18/19 09:00 02/22/19 08:27 Wellbutrin Xl PO 150 mg DAILY KATHY Administration Doxazosin Mesylate 2 mg 02/18/19 09:00 02/22/19 08:27 Cardura PO 2 mg DAILY KATHY Administration Gabapentin 600 mg 02/22/19 09:00 02/22/19 08:27 Neurontin PO 600 mg TID KATHY Administration Glipizide 10 mg 02/22/19 08:00 02/22/19 08:25 Glucotrol PO 10 mg BID-WM KATHY Administration Insulin Human Lispro 0 units 02/17/19 16:13 02/21/19 06:14 Humalog SC 3 unit .BEDTIME SLIDING SC PRN Administration Bedtime Correctional Scale Insulin Human Lispro 0 units 02/20/19 12:39 02/22/19 08:32 Humalog SC 9 unit .AGGRESSIVE SLIDING PRN Administration Aggressive Correctional Scale Levofloxacin 750 mg 02/22/19 06:00 02/22/19 05:05 Levaquin PO 750 mg 0600 KATHY Administration Metformin HCl 500 mg 02/17/19 21:00 02/22/19 14:15 Glucophage PO 500 mg 1200,1700,2100 KAHTY Administration Pantoprazole Sodium 40 mg 02/18/19 09:00 02/22/19 08:28 Protonix PO 40 mg DAILY KATHY Administration Simethicone 80 mg 02/17/19 20:35 02/17/19 22:57 Mylicon Chewable PO 80 mg PCHS PRN Administration Gas Pain Sodium Chloride 10 ml 02/17/19 15:20 02/20/19 09:06 Flush - Normal Saline IVF 10 ml PRN PRN Administration Saline Flush Spironolactone 25 mg 02/18/19 09:00 02/22/19 08:27 Aldactone PO 25 mg QAM KATHY Administration Tramadol HCl 50 mg 02/17/19 20:52 02/19/19 17:12 Ultram PO 50 mg QID PRN Administration Pain - Exam General Appearance: NAD Neck: supple Heart: RRR, no murmur Respiratory: CTAB, no wheezes, no rales, no ronchi Gastrointestinal: soft, non-tender, non-distended, normal bowel sounds Extremities: no cyanosis, no clubbing, no edema Neurological: no weakness, no focal deficits Musculoskeletal: normal tone Psychiatric: normal affect Hosp A/P (1) Bacteremia Code(s): R78.81 - BACTEREMIA Status: Acute (2) Acute pyelonephritis Code(s): N10 - ACUTE PYELONEPHRITIS Status: Acute (3) Diabetes mellitus Code(s): E11.9 - TYPE 2 DIABETES MELLITUS WITHOUT COMPLICATIONS Status: Chronic Qualifiers: Diabetes mellitus type: type 2 Diabetes mellitus [employer] insulin use: without retirement use (4) Sepsis Code(s): A41.9 - SEPSIS, UNSPECIFIED ORGANISM Status: Resolved Qualifiers: Sepsis type: Escherichia coli Sepsis acute organ dysfunction status: with acute organ dysfunction Severe sepsis shock status: without septic shock (5) Anxiety and depression Code(s): F41.9 - ANXIETY DISORDER, UNSPECIFIED; F32.9 - MAJOR DEPRESSIVE DISORDER, SINGLE EPISODE, UNSPECIFIED Status: Chronic (6) BPH (benign prostatic hyperplasia) Code(s): N40.0 - BENIGN PROSTATIC HYPERPLASIA WITHOUT LOWER URINRY TRACT SYMP Status: Chronic Qualifiers: Lower urinary tract symptom presence: symptoms present (7) Dyslipidemia Code(s): E78.5 - HYPERLIPIDEMIA, UNSPECIFIED Status: Chronic (8) GERD (gastroesophageal reflux disease) Code(s): K21.9 - GASTRO-ESOPHAGEAL REFLUX DISEASE WITHOUT ESOPHAGITIS Status: Chronic Qualifiers: Esophagitis presence: esophagitis presence not specified Qualified Code(s) : K21.9 - Gastro-esophageal reflux disease without esophagitis (9) HTN (hypertension) Code(s): I10 - ESSENTIAL (PRIMARY) HYPERTENSION Status: Chronic Qualifiers: Hypertension type: essential hypertension Qualified Code(s): I10 - Essential (primary) hypertension (10) Acute respiratory failure with hypoxemia Code(s): J96.01 - ACUTE RESPIRATORY FAILURE WITH HYPOXIA Status: Acute (11) Delirium Code(s): R41.0 - DISORIENTATION, UNSPECIFIED Status: Acute - Plan - Appreciate ID & Urology input - 4 weeks of levaquin for bacteremia/pyelo secondary to E Coli - blood sugars uncontrolled - will increase metformin to 1000 mg bid with meals , continue glipizide and add januvia starting at 50 mg once daily. Monity blood sugars - continue other home meds as ordered - delirium likely multi-factorial, will consult Neurology for other suggestions. Silas reports family will be staying with the patient today/ tonight. C diff testing pending for diarrhea dvt prophy - ambulatory gi prophy - on home PPI code status full anticipate d/c to home tomorrow - await c diff testing and Neurology input for delirium reviewed plan of care with patient and 1 of his 4 daughters, no questions or further needs at end of eval
[2019-02-22 20:47] VITALS: BP 145/78; TEMP 98.1
[2019-02-22] MEDS: Amitriptyline HCl 25 MG TAB PO SCH (21:34)
[2019-02-22] MEDS: Amlodipine 10 MG TAB PO SCH (21:34)
--- NOTE | 2019-02-23 00:19 | CON ---
DATE OF CONSULTATION: 02/23/2019 CONSULTING PHYSICIAN: [facility]. IMPRESSION: Mild delirium secondary to sepsis. PLAN: No particular treatment is needed. HISTORY OF PRESENT ILLNESS: Mr. Vo is a 64-year-old man, who was admitted with E. coli sepsis. Since admission, he has had some visual hallucinations. He also became a little confused about whether it was day or night from the standpoint of morning and evening hours were difficult to separate. He has had some confusion in the past when he has gotten sick. He has a psych history for depression, but otherwise no history of known delirium. His workup otherwise is unremarkable for any metabolic abnormalities. PAST MEDICAL HISTORY: Prostatitis, diabetes, cervical disk disease with some cord compression, chronic low back pain, coronary artery disease. ALLERGIES: LISINOPRIL. MEDICATION: List reviewed. SOCIAL HISTORY: No tobacco or alcohol use. FAMILY HISTORY: Noncontributory. REVIEW OF SYSTEMS: Ten-system review of systems is otherwise negative. PHYSICAL EXAMINATION: GENERAL: He is a well-nourished, middle-aged man, in no acute distress. VITAL SIGNS: Have been stable. He has been afebrile. HEENT: Pupils are equal and reactive. Conjunctivae clear. Oropharynx clear. NECK: Supple. EXTREMITIES: No cyanosis or edema. NEUROLOGIC: He is alert and oriented x3. His speech is fluent and clear. Cranial nerves are intact. Motor exam showed symmetric strength. There is no abnormal movements present. He has good balance and can walk independently. ASSESSMENT AND PLAN: His CT scan of the abdomen shows bilateral pyelonephritis, some trace pleural effusions. His blood cultures were positive for E. coli. LABORATORY DATA: EKG shows sinus tachycardia. SUMMARY: This is a middle-aged man with sepsis and secondary mild delirium. No particular treatment needed. Job ID: [id number]
[2019-02-23] MEDS ORDERED: Spironolactone 25 MG TAB ONE (07:39)
[2019-02-23] MEDS ORDERED: Alogliptin 25 MG TAB PO ONE (07:40)
[2019-02-23] MEDS ORDERED: metFORMIN 500 MG TAB ONE (07:41)
[2019-02-23] MEDS ORDERED: Aspirin 325 mg Enteric Coated Tablet ONE (07:41)
[2019-02-23] MEDS ORDERED: glipiZIDE 10 MG TAB ONE (07:41)
[2019-02-23] MEDS ORDERED: Atorvastatin Calcium 20 MG TAB ONE (07:42)
[2019-02-23] MEDS ORDERED: Atenolol 25 MG TAB ONE (07:43)
[2019-02-23] MEDS ORDERED: Gabapentin 300 MG CAP ONE (07:43)
[2019-02-23] MEDS: Atenolol 50 MG TAB PO SCH (08:30)
[2019-02-23] MEDS: Spironolactone 25 MG TAB PO SCH (08:30)
[2019-02-23] MEDS: Bupropion 150 MG XL TAB PO SCH (08:30)
[2019-02-23] MEDS: Aspirin 81 mg Enteric Coated Tablet PO SCH (08:30)
[2019-02-23] MEDS: glipiZIDE 10 MG TAB PO SCH (08:30)
[2019-02-23] MEDS: metFORMIN 500 MG TAB PO SCH (08:30)
[2019-02-23] MEDS: Atorvastatin Calcium 20 MG TAB PO SCH (08:30)
[2019-02-23] MEDS: Doxazosin 2 MG TAB PO SCH (08:30)
[2019-02-23] MEDS: Gabapentin 300 MG CAP PO SCH (08:30)
[2019-02-23] MEDS ORDERED: Alogliptin 25 MG TAB PO SCH (09:00)
--- NOTE | 2019-02-23 11:41 | PRG ---
DATE OF SERVICE: 02/23/2019 SUBJECTIVE: The patient without complaints, alert, appears oriented x3. Denies dysuria, gross hematuria, or fever. Computer system is down today. Therefore, history obtained with nursing staff and vital signs obtained at bedside. OBJECTIVE: VITAL SIGNS: Per nursing staff, afebrile. ABDOMEN: Soft, nontender, and nondistended. IMPRESSION AND PLAN: 1. Mr. Vo is a 64-year-old male with history of diabetes. 2. History of benign prostatic hyperplasia, status post transurethral resection of the prostate with history of recurrent urinary tract infection, currently admission due to Escherichia coli urosepsis on appropriate antibiotic regimen. Levaquin 750 for 4-week duration is advised. 3. Mental status changes, when medically stable. The patient could be discharged home. Clostridium difficile workup in progress. Job ID: [id number] MTDD
[2019-02-23] MEDS ORDERED: Vancomycin HCl 25 MG/ML Oral PO SCH (12:30)
--- NOTE | 2019-02-23 15:09 | DIS ---
DATE OF ADMISSION: 02/17/2019 DATE OF DISCHARGE: 02/23/2019 CONSULTANTS: 1. Dr. Banerjee of Infectious Disease. 2. Dr. Gibson of Urology. MEDICATIONS: Reconciled at discharge. New medications: 1. Levaquin 750 mg daily for the next 26 days to complete a total of 4 weeks of antibiotic therapy. 2. Vancomycin 125 mg p.o. daily for 30 days. 3. Januvia 100 mg p.o. daily, prescription provided for 1 month supply to follow up with the primary care provider to determine if this medication is to continue or to be adjusted. 4. Metformin increased to 1000 mg p.o. b.i.d. with meals. Changed medications are Colace 100 mg daily, changed to as needed for constipation. Discontinued medications are metformin 500 mg t.i.d., this has been replaced. Medications to continue: 1. Amitriptyline 50 mg daily. 2. Amlodipine 10 mg at bedtime. 3. Aspirin 81 mg daily. 4. Atenolol 50 mg b.i.d. 5. Atorvastatin 20 mg daily. 6. Baclofen 20 mg b.i.d. p.r.n. muscle spasm. 7. Bupropion 150 mg daily. 8. Celebrex 200 mg daily. 9. Doxazosin 2 mg daily. 10. Gabapentin 600 mg t.i.d. 11. Vascepa 2 g p.o. b.i.d. with meals. 12. Multivitamin daily. 13. Omeprazole 20 mg daily. 14. Spironolactone 25 mg daily. 15. Glipizide 10 mg b.i.d. with meals. 16. Tramadol 50 mg 4 times daily as needed for pain. FINAL DIAGNOSES: 1. Bacteremia and pyelonephritis secondary to escherichia coli. 2. Clostridium difficile colonization. 3. Recurrent urinary tract infection. 4. Delirium. 5. Sepsis secondary to bacteremia. 6. Diabetes mellitus, uncontrolled. 7. Acute respiratory failure with hypoxia, resolved. SECONDARY DIAGNOSES: 1. Anxiety and depression. 2. Benign prostatic hyperplasia. 3. Coronary artery disease. 4. Gastroesophageal reflux disease. 5. Hypertension. 6. Hyponatremia, resolved. HISTORY OF PRESENT ILLNESS: Mr. Vo is a 64-year-old male with the above medical problems, who presented to the emergency room with a complaint of dysuria. He was found to be septic, with recommendation for admission, however, he declined. He received antibiotics in the emergency room, discharged on Levaquin, however, received a call from the emergency room that his blood cultures were positive and he was requested to come back to the emergency room. He was resumed on antibiotics. HOSPITAL COURSE: The patient was managed on IV Rocephin while here, which was changed over in conjunction with Infectious Disease to Levaquin with a plan for a total of 4-week course. The patient's blood sugars have been elevated while here. He was on a sliding-scale insulin with some improvement in that. His metformin has been adjusted at the time of discharge and Januvia is added, in addition he is continuing on glyburide and on a carb consistent diet. The elevated blood sugars are likely secondary to infection as the family reports that the patient has been better controlled. Of note, the last blood sugar was over 400 here - shortly after the patient consumed 2 cartons of orange juice. I discussed with him and his daughter removing carbohydrates from his diet until the blood sugars are controlled - bread/pasta/rice/sweets/fruit, and instead consume protein, vegetables, healthy fats. Of note - patient's daughter reports his blood sugars can go as low as 70 at home. Due to this, I did not start him on long-acting insulin. This will need to be considered in the outpatient setting. I spoke with Dr. Gibson and pt is NOT a candidate for SGLT2 inhibitors such as Farxiga and Jarviance due to the recurrent UTI/Urologic issues. The patient had diarrhea at the end of this hospitalization, which was tested and found to be C difficile antigen positive, toxin negative. I reviewed this with Dr. Banerjee, who considers this colonization and recommends once daily vancomycin dosing for the duration of antibiotic therapy. His first dose will be here prior to discharge, and a prescription is provided for this. The patient has been kept on his usual medications. He did experience delirium while here and his labs remained relatively normal. Neurology was consulted and no additional recommendations provided. The patient is overall doing well, diarrhea appears resolved, he does meet criteria for discharge to home. PHYSICAL EXAMINATION: VITAL SIGNS: Temperature 98.1, blood pressure 133/75, pulse 68, respirations 18 , saturations 98% on room air. GENERAL: Awake, alert, responsive, in no apparent distress. Able to speak in full sentences. LUNGS: Clear to auscultation bilateral. HEART: Normal S1 and S2. Regular rate and rhythm. No significant murmur. ABDOMEN: Soft. Present bowel sounds. Nontender, nondistended. EXTREMITIES: No edema. NEURO: No focal deficits. WILSON FINDINGS AND TEST RESULTS: Labs today, none there in the system, however, the system has been down today. Renal panel yesterday; 134, 3.3, 101, 23, 6, 0.83, 281. LFTs; calcium 8.8, phos 2.2, mag 1.9, T-bili 0.4, AST 30, ALT 34, alkaline phosphatase 100, total protein 6.7, and albumin 3.4. CBC; 7.0, 10.4, 31.2, and 227. Urine creatinine was 40.6 on 02/20, urine sodium 29. Urine osmolality 532. C difficile testing on February 22, antigen positive, toxin negative. Urine culture and blood cultures from February 16 are all pansensitive E coli. Echocardiogram performed on February 18, EF of 55% to 60%, moderately enlarged right ventricle, mild MR and TR. Abdomen and pelvic CT on 02/18 shows renal enlargement, perinephric stranding, and periureteral inflammation suspicious for changes of pyelonephritis, mild cystitis; bilateral pleural effusions and bibasilar atelectasis; exophytic cyst of the superior pole of the left kidney, now 2.5 cm; mild amount of retained stool. Chest x-ray on 02/17 new left lower lobe pneumonia with an airspace opacity in the retrocardiac left lower lobe consistent with pneumonia. DIET: Carb consistent, heart healthy. ACTIVITY: As tolerated. FOLLOWUP: 1. Follow up with Dr. Gibson within 2 to 3 weeks to review this hospitalization and address any other health needs. 2. Follow up with Dr. Banerjee in a month to review infection and ensure that it is cleared. 3. Follow up with the primary care provider within a week to review blood sugars , adjust medications, and consider insulin if they remain elevated. Reviewed with the patient and his family this hospitalization, the importance of followup, seek care precautions. No questions or further needs at the end of evaluation. Total time coordinating discharge is 45 minutes. CODE STATUS: Full. DISCHARGE DISPOSITION: Home. Job ID: [id number] [facility]
== END 2019-02-23 14:49 | disposition home or self-care (01) | DRG 871 ==
LOC: ERS 10:51 → T4-B 15:12
PROVIDERS: ADMIT Internal Medicine; ATTEND Internal Medicine
DX: A41.51 Sepsis due to Escherichia coli [E. coli] (principal); J96.01 Acute respiratory failure with hypoxia; F05 Delirium due to known physiological condition; E87.1 Hypo-osmolality and hyponatremia; N10 Acute pyelonephritis; F41.9 Anxiety disorder, unspecified; F32.9 Major depressive disorder, single episode, unspecified; E11.65 Type 2 diabetes mellitus with hyperglycemia; N40.0 Benign prostatic hyperplasia without lower urinary tract symptoms; K21.9 Gastro-esophageal reflux disease without esophagitis; I25.10 Atherosclerotic heart disease of native coronary artery without angina pectoris; I10 Essential (primary) hypertension; G89.29 Other chronic pain; M54.9 Dorsalgia, unspecified; E78.1 Pure hyperglyceridemia; Z88.8 Allergy status to other drugs, medicaments and biological substances; Z79.899 Other long term (current) drug therapy; Z79.84 Long term (current) use of oral hypoglycemic drugs; Z95.5 Presence of coronary angioplasty implant and graft; Z90.49 Acquired absence of other specified parts of digestive tract; Z87.440 Personal history of urinary (tract) infections
CPT/HCPCS: 36415; 36416; 71046; 74177; 80048; 80053; 82570; 83605; 83690; 83735; 83880; 83930; 83935; 84100; 84145; 84300; 84484; 85025; 87324; 87449; 87493; 93005; 93010; 93306; 94640; 96365; 96367; J0696; J1815; J1940; J2185; J2270; J2405; J3490; J7620; Q9967

== ENCOUNTER 2020-02-20 13:54 | Outpatient (CLI) | payer OTHER ==
--- NOTE | 2020-02-20 16:18 | ULT ---
BILATERAL LOWER EXTREMITY ARTERIAL DOPPLER STUDY: Technique: Arteries to both lower extremities evaluated with ultrasound doppler. Color doppler, spect ral analysis and velocity recordings obtained in all segments. Indications: Atherosclerotic heart size. FINDINGS: Right lower extremity: Right common femoral artery, superficial femoral artery, popliteal, posterior tibial artery and dorsal pedis artery all exhibit a normal triphasic waveform. Anterior tibial artery exhibits a biphasic waveform. Velocities appear symmetric throughout the right lower extremity. Left lower extremity: Left common femoral artery, superficial femoral artery, popliteal artery and po sterior tibial arteries show a triphasic waveform. The left anterior tibial artery and dorsal pedis r eveal a biphasic waveform. Velocities are symmetric throughout all left lower extremity segments. IMPRESSION: No evidence of significant occlusive arterial disease to either lower extremity by waveform analysis. POS: OFF
== END 2020-02-20 13:55 | disposition home or self-care (01) ==
LOC: BICULT 13:54
PROVIDERS: ATTEND Internal Medicine Cardiovascular Disease
DX: M79.605 Pain in left leg (principal)
CPT/HCPCS: 93923

== ENCOUNTER 2021-09-03 13:29 | Outpatient (CLI) | payer MEDICARE | END 2021-09-03 13:30 | disposition home or self-care (01) | LOC: DTY/OP 13:29 | PROVIDERS: ATTEND Student in an Organized Health Care Education/Training Program | DX: E11.9 Type 2 diabetes mellitus without complications (principal) | CPT/HCPCS: 97802 ==

== ENCOUNTER 2022-07-16 07:29 | Outpatient (CLI) | payer MEDICARE | END 2022-07-16 07:30 | disposition home or self-care (01) | LOC: BICULT 07:29 | PROVIDERS: ATTEND Internal Medicine Gastroenterology | DX: R79.89 Other specified abnormal findings of blood chemistry (principal); Z86.010 Personal history of colon polyps; K76.0 Fatty (change of) liver, not elsewhere classified | CPT/HCPCS: 76705 ==

== ENCOUNTER 2023-09-11 12:11 | Outpatient (CLI) | payer MEDICARE ==
[2023-09-11 12:59] LABS: Hematocrit 36.4 % (38.8-50.0); Mean Corpuscular HGB CONC 35.7 g/dL (32.0-36.0); Mean Corpuscular Hemoglobin 31.6 pg (27.0-33.0); Mean Corpuscular Volume 88.6 fL (81.2-95.1); Mean Platelet Volume 12.7 fL (7.4-10.4); Platelet Count 126 10x3/uL (150-450); Red Blood Cell (RBC) Count 4.11 10x6/uL (4.32-5.72)
[2023-09-11 13:16] LABS: PTT 27.1 sec (22.0-33.0); Prothrombin Time 10.9 sec (9.5-12.1)
[2023-09-11 13:17] LABS: Anion Gap 16 mmol/L (10-20); BUN (Urea Nitrogen) 11 mg/dL (8.4-25.7); Calc. Creatinine Clearance 0 mL/min (70-130); Calcium 9.1 mg/dL (7.8-10.44); Carbon Dioxide 21 mmol/L (23-31); Chloride 106 mmol/L (98-107); Estimated GFR 96; Glucose 202 mg/dL (80-115); Potassium 4.5 mmol/L (3.5-5.1); Sodium 138 mmol/L (136-145)
== END 2023-09-11 12:12 | disposition home or self-care (01) ==
LOC: LABBT 12:11
PROVIDERS: ATTEND Surgery
DX: Z01.812 Encounter for preprocedural laboratory examination (principal); M51.16 Intervertebral disc disorders with radiculopathy, lumbar region; M48.061 Spinal stenosis, lumbar region without neurogenic claudication
CPT/HCPCS: 80048; 85027; 85610; 85730

== ENCOUNTER 2023-09-15 06:40 | Inpatient (IN) | payer MEDICARE ==
[2023-09-15] MEDS ORDERED: Vancomycin 1 GM VIAL ONE (06:41)
[2023-09-15] MEDS ORDERED: Thrombin 5000 UNITS/5 ML VIAL ONE ×2 (06:41→14:40)
[2023-09-15] MEDS ORDERED: Lidocaine 1% PF 5 ML VIAL ONE (06:52)
[2023-09-15] MEDS ORDERED: PROPOFOL 20 ML ONE (06:52)
[2023-09-15] MEDS ORDERED: Fentanyl 250 MCG/5 ML VIAL ONE (06:52)
[2023-09-15] MEDS ORDERED: Rocuronium Bromide 10 MG/ML (10ML VIAL) ONE (06:52)
[2023-09-15] MEDS ORDERED: Sodium Chloride 0.9% 100 ML ONE (07:08)
[2023-09-15] MEDS ORDERED: CEFAZOLIN 2 GM VIAL ONE (07:08)
[2023-09-15] MEDS ORDERED: Scopolamine 1 mg/72 hour Patch ONE (07:18)
[2023-09-15] MEDS ORDERED: Famotidine/PF 20 mg/2ml Vial ONE (07:18)
[2023-09-15] MEDS ORDERED: Midazolam HCl 2 mg/2 ml Vial ONE (07:22)
[2023-09-15] MEDS ORDERED: Dexamethasone 20 MG/5 ML VIAL ONE (08:07)
[2023-09-15] MEDS ORDERED: Ondansetron PF 4 MG/2 ML Vial ONE (08:07)
[2023-09-15] MEDS ORDERED: NEOSTIGMINE 3 MG/3 ML SYRINGE ONE (08:47)
[2023-09-15] MEDS ORDERED: PHENYLEPHRINE-NS 100 MCG/ML 10 ML SYRINGE ONE (08:47)
[2023-09-15] MEDS ORDERED: Ketorolac Tromethamine 30 MG (1 mL) VIAL ONE (08:47)
[2023-09-15] MEDS ORDERED: Glycopyrrolate 0.2 MG/ML 5 ML SYRINGE ONE (08:47)
[2023-09-15] MEDS ORDERED: Vecuronium 10 MG VIAL ONE (09:17)
[2023-09-15] MEDS ORDERED: Metoclopramide HCl 10 MG (2 mL) VIAL ONE (10:14)
[2023-09-15] MEDS ORDERED: HYDROmorphone 2 MG/ML VIAL SLOW IVP PRN (10:52)
[2023-09-15] MEDS ORDERED: Promethazine HCl 25 MG/ML VIAL IM PRN (10:52)
[2023-09-15] MEDS ORDERED: Ondansetron HCl/PF 4 MG/2 ML Vial IVP PRN (10:52)
[2023-09-15] MEDS ORDERED: diphenhydrAMINE 25 MG CAP PO PRN (11:45)
[2023-09-15] MEDS ORDERED: Ondansetron PF 4 MG/2 ML Vial IVP PRN (11:45)
[2023-09-15] MEDS ORDERED: Morphine 2 MG/ML VIAL SLOW IVP PRN (11:45)
[2023-09-15] MEDS ORDERED: Acetaminophen 325 MG TAB PO PRN (11:45)
[2023-09-15] MEDS ORDERED: Milk Of Magnesia 30 ML UDCUP PO PRN (11:45)
[2023-09-15] MEDS ORDERED: hydrALAZINE 20 MG/ML VIAL SLOW IVP PRN (11:49)
[2023-09-15] MEDS ORDERED: HYDROmorphone 2 MG/ML VIAL ONE (12:28)
[2023-09-15] MEDS ORDERED: Non-Formulary Item 1 EACH (Gabapentin [Gabapentin] 600 MG Tablet) PO SCH (13:00)
[2023-09-15] MEDS: Gabapentin 300 MG CAP PO SCH (15:27)
[2023-09-15] MEDS: glipiZIDE 10 MG TAB PO SCH (15:27)
[2023-09-15] MEDS: CEFAZOLIN 2 GM in Sodium Chloride 0.9% 100 ML IVPB SCH (15:29)
[2023-09-15] MEDS: traMADol HCl 50 MG TAB PO PRN (15:35)
[2023-09-15] MEDS: Sodium Chloride 0.9% 1,000 ML IV SCH (15:36)
[2023-09-15] MEDS: metFORMIN 500 MG TAB PO SCH (17:08)
[2023-09-15] MEDS: Amlodipine 10 MG TAB PO SCH (20:32)
[2023-09-15] MEDS: Amitriptyline HCl 25 MG TAB PO SCH (20:32)
[2023-09-15] MEDS: Atenolol 50 MG TAB PO SCH (20:33)
[2023-09-16] MEDS: Multivit, Therapeutic 1 TAB PO SCH (08:10)
[2023-09-16] MEDS: Spironolactone 25 MG TAB PO SCH (08:10)
[2023-09-16] MEDS: Doxazosin 2 MG TAB PO SCH (08:10)
[2023-09-16] MEDS: Ezetimibe 10 MG TAB PO SCH (08:10)
[2023-09-16] MEDS: CeleCOXIB 100 MG CAP PO SCH (08:11)
[2023-09-16] MEDS: Pantoprazole DR 40 MG TAB PO SCH (08:11)
[2023-09-16] MEDS: Alogliptin 25 MG TAB PO SCH (08:11)
[2023-09-16] MEDS: Docusate 100 MG CAP PO SCH (08:12)
[2023-09-16] MEDS: Rosuvastatin 5 MG TAB PO SCH (08:12)
[2023-09-16] MEDS ORDERED: Non-Formulary Item 1 EACH (Multivitamin [Multi-Vitamin Daily] 1 TABLET Tablet) PO SCH (09:00)
[2023-09-16] MEDS ORDERED: Non-Formulary Item 1 EACH (Omeprazole [Omeprazole] 20 MG Capsule.Dr) PO SCH (09:00)
[2023-09-16] MEDS ORDERED: DOXAZOSIN MESYLATE 2 MG PO SCH (09:00)
[2023-09-16] MEDS ORDERED: Non-Formulary Item 1 EACH (Sitagliptin Phosphate [Januvia] 100 MG Tab) PO SCH (09:00)
[2023-09-16] MEDS ORDERED: Docusate 100 MG CAP PO SCH (09:00)
[2023-09-16] MEDS ORDERED: Non-Formulary Item 1 EACH (Sertraline Hcl [Sertraline Hcl] 50 MG Tablet) PO SCH (09:00)
[2023-09-16] MEDS: tiZANidine HCl 4 MG TAB PO PRN (09:33)
[2023-09-16] MEDS: Acetaminophen/Codeine 30-300mg Tablet PO PRN (11:34)
[2023-09-16] MEDS: glipiZIDE 10 MG TAB PO SCH (17:16)
[2023-09-17 06:29] LABS: #Basophils Less than 0.03 10x3/uL (0.0-0.2); %Basophils 0.3 % (0.0-1.0); %Eosinophils 3.1 % (0.0-10.0); %Lymphocytes 20.8 % (21.0-51.0); %Monocytes 7.5 % (0.0-10.0); Hematocrit 28.6 % (42.0-52.0); Hemoglobin 9.7 g/dL (14.0-18.0); Mean Corpuscular HGB CONC 33.9 g/dL (32.0-36.0); Mean Corpuscular Hemoglobin 31.6 pg (27.0-31.0); Mean Corpuscular Volume 93.2 fL (78.0-98.0); Mean Platelet Volume 13.2 fL (7.4-10.4); Platelet Count 104 10x3/uL (130-400); RBC Distribution Width 12.2 % (11.5-14.5); Red Blood Cell (RBC) Count 3.07 mill/uL (4.70-6.10)
[2023-09-17 06:35] LABS: Anion Gap 12 mmol/L (10-20); BUN (Urea Nitrogen) 10 mg/dL (8.4-25.7); Calc. Creatinine Clearance 110 mL/min (70-130); Calcium 8.4 mg/dL (7.8-10.44); Carbon Dioxide 24 mmol/L (23-31); Chloride 103 mmol/L (98-107); Estimated GFR 95; Glucose 181 mg/dL (80-115); Potassium 4.1 mmol/L (3.5-5.1); Sodium 135 mmol/L (136-145)
[2023-09-17] MEDS: Sertraline 100 MG TAB PO SCH (08:22)
[2023-09-17] MEDS: Diazepam 5 MG TAB PO PRN (08:47)
[2023-09-17] MEDS: HYDROcodone/Acetaminophen 7.5/325 mg Tablet PO PRN (08:47)
[2023-09-17] MEDS: Dexamethasone 4 MG TAB PO SCH (11:45)
[2023-09-17] MEDS ORDERED: Diazepam 5 MG TAB PO PRN (16:45)
[2023-09-18 07:42] LABS: #Basophils Less than 0.03 10x3/uL (0.0-0.2); #Eosinphils Less than 0.03 10x3/uL (0.0-0.7); %Basophils 0.2 % (0.0-1.0); %Eosinophils 0.2 % (0.0-10.0); %Lymphocytes 15.5 % (21.0-51.0); %Monocytes 5.6 % (0.0-10.0); Hematocrit 30.8 % (42.0-52.0); Hemoglobin 10.7 g/dL (14.0-18.0); Mean Corpuscular HGB CONC 34.7 g/dL (32.0-36.0); Mean Corpuscular Hemoglobin 30.9 pg (27.0-31.0); Mean Platelet Volume 13.2 fL (7.4-10.4); Platelet Count 117 10x3/uL (130-400); RBC Distribution Width 11.9 % (11.5-14.5); Red Blood Cell (RBC) Count 3.46 mill/uL (4.70-6.10)
[2023-09-18 11:58] VITALS: BP 145/69
[2023-09-18] MEDS: Dexamethasone 1 MG TAB PO SCH (12:36)
[2023-09-18 13:22] VITALS: TEMP 97.6
[2023-09-19] MEDS ORDERED: Dexamethasone 1 MG TAB PO SCH (12:00)
[2023-09-20] MEDS ORDERED: Dexamethasone 1 MG TAB PO SCH (12:00)
== END 2023-09-18 13:41 | disposition home or self-care (01) | DRG 520 ==
LOC: SDC 06:40 → T4-A 15:11 → UNDODISOB 16:50 → OBSVTOIN 09-16 12:41
PROVIDERS: ADMIT Surgery; ATTEND Surgery
PROC: 00NY0ZZ Release Lumbar Spinal Cord, Open Approach (ICD-10-PCS; principal; 2023-09-15)
PROC: 01NB0ZZ Release Lumbar Nerve, Open Approach (ICD-10-PCS; 2023-09-15)
PROC: 01NR0ZZ Release Sacral Nerve, Open Approach (ICD-10-PCS; 2023-09-15)
PROC: 0SB20ZZ Excision of Lumbar Vertebral Disc, Open Approach (ICD-10-PCS; 2023-09-15)
DX: M51.26 Other intervertebral disc displacement, lumbar region (principal); M48.062 Spinal stenosis, lumbar region with neurogenic claudication; G47.33 Obstructive sleep apnea (adult) (pediatric); K21.9 Gastro-esophageal reflux disease without esophagitis; E78.5 Hyperlipidemia, unspecified; I10 Essential (primary) hypertension; M54.16 Radiculopathy, lumbar region; I25.10 Atherosclerotic heart disease of native coronary artery without angina pectoris; F32.A Depression, unspecified; F41.9 Anxiety disorder, unspecified; N40.0 Benign prostatic hyperplasia without lower urinary tract symptoms; Z86.73 Personal history of transient ischemic attack (TIA), and cerebral infarction without residual deficits; Z79.899 Other long term (current) drug therapy
CPT/HCPCS: 36415; 36416; 80048; 85025; J1100; J1170; J1885; J2250; J2405; J2704; J2765; J3010; J3370; J3490; J7050; J8540; S0028

== ENCOUNTER 2023-09-27 10:23 | Emergency (ER) | payer MEDICARE ==
[2023-09-27 11:30] LABS: #Basophils 0.03 10x3/uL (0.0-0.2); %Basophils 0.4 % (0.0-1.0); %Eosinophils 1.5 % (0.0-10.0); %Lymphocytes 11.9 % (21.0-51.0); %Monocytes 5.6 % (0.0-10.0); %Neutrophils 80.2 % (42.0-75.0); Hematocrit 35.8 % (42.0-52.0); Hemoglobin 12.2 g/dL (14.0-18.0); Mean Corpuscular HGB CONC 34.1 g/dL (32.0-36.0); Mean Corpuscular Hemoglobin 30.7 pg (27.0-31.0); Mean Corpuscular Volume 89.9 fL (78.0-98.0); Mean Platelet Volume 12.7 fL (7.4-10.4); Platelet Count 146 10x3/uL (130-400); RBC Distribution Width 12.6 % (11.5-14.5); Red Blood Cell (RBC) Count 3.98 mill/uL (4.70-6.10)
[2023-09-27 11:48] LABS: Bacteria/HPF None Seen HPF (None Seen); Bilirubin Negative (Negative); Blood, Urine Negative (Negative); CAUTI Indications for Culture Alt mental st,lethar; Clarity Clear (Clear); Glucose, Urine (Dipstick) Normal (Negative); Ketone, Urine Negative (Negative); Leukocyte Negative Leu/uL (Negative); Nitrite Negative (Negative); Protein, Urine (Dipstick) Negative (Neg-Trace); RBC/HPF 0-3 HPF (0-3); Specific Gravity, Urine 1.014 (1.002-1.036); Squamous Epithelial 0-3 HPF (0-3); Urobilinogen Normal mg/dL (Less than 2); WBC/HPF 0-3 HPF (0-3); pH, Urine 6.5 (5.0-9.0)
[2023-09-27 11:53] LABS: ALT (SGPT) 50 U/L (8-55); AST (SGOT) 27 U/L (5-34); Albumin 3.7 g/dL (3.4-4.8); Alkaline Phosphatase 76 U/L (40-110); Anion Gap 14 mmol/L (10-20); BUN (Urea Nitrogen) 8 mg/dL (8.4-25.7); Bilirubin, Total 0.5 mg/dL (0.2-1.2); Calc. Creatinine Clearance 0 mL/min (70-130); Calcium 9.2 mg/dL (7.8-10.44); Carbon Dioxide 23 mmol/L (23-31); Chloride 103 mmol/L (98-107); Estimated GFR 97; Globulin 3.1 g/dL (2.4-3.5); Glucose 239 mg/dL (80-115); Potassium 4.6 mmol/L (3.5-5.1); Protein, Total 6.8 g/dL (5.8-8.1); Sodium 135 mmol/L (136-145)
[2023-09-27 11:58] LABS: Urine Culture Reflex No No
[2023-09-27] MEDS ORDERED: Morphine 10 MG/ML VIAL ONE (12:45)
== END 2023-09-27 13:02 | disposition home or self-care (01) ==
LOC: ERS 10:23
DX: M54.50 Low back pain, unspecified (principal); G89.18 Other acute postprocedural pain; E11.9 Type 2 diabetes mellitus without complications; I10 Essential (primary) hypertension
CPT/HCPCS: 71045; 72131; 80053; 81001; 83605; 85025; 87040; 93005; 96361; 96374; 99284; J2270; 36415

== ENCOUNTER 2023-09-27 16:53 | Inpatient (IN) | payer MEDICARE ==
[2023-09-27 17:46] LABS: #Basophils Less than 0.03 10x3/uL (0.0-0.2); %Basophils 0.1 % (0.0-1.0); %Eosinophils 0.6 % (0.0-10.0); %Lymphocytes 7.1 % (21.0-51.0); %Monocytes 4.8 % (0.0-10.0); %Neutrophils 87.1 % (42.0-75.0); Hematocrit 37.3 % (42.0-52.0); Hemoglobin 12.5 g/dL (14.0-18.0); Mean Corpuscular HGB CONC 33.5 g/dL (32.0-36.0); Mean Corpuscular Hemoglobin 31.2 pg (27.0-31.0); Mean Platelet Volume 12.2 fL (7.4-10.4); Platelet Count 133 10x3/uL (130-400); RBC Distribution Width 12.4 % (11.5-14.5); Red Blood Cell (RBC) Count 4.01 mill/uL (4.70-6.10)
[2023-09-27 17:54] LABS: Lipase 17 U/L (8-78)
[2023-09-27 17:56] LABS: ALT (SGPT) 77 U/L (8-55); AST (SGOT) 81 U/L (5-34); Albumin 3.9 g/dL (3.4-4.8); Alkaline Phosphatase 104 U/L (40-110); Anion Gap 17 mmol/L (10-20); BUN (Urea Nitrogen) 9 mg/dL (8.4-25.7); Bilirubin, Total 0.6 mg/dL (0.2-1.2); Calc. Creatinine Clearance 0 mL/min (70-130); Calcium 9.1 mg/dL (7.8-10.44); Carbon Dioxide 21 mmol/L (23-31); Chloride 102 mmol/L (98-107); Estimated GFR 92; Globulin 2.7 g/dL (2.4-3.5); Glucose 218 mg/dL (80-115); Potassium 4.3 mmol/L (3.5-5.1); Protein, Total 6.6 g/dL (5.8-8.1); Sodium 136 mmol/L (136-145)
[2023-09-27 17:57] LABS: Acetaminophen Less than 10 mcg/mL (10.0-30.0); Alcohol Less than 10.0 mg/dL (Less than 10); Salicylate Less than 8.0 mg/dL (15.0-30.0)
[2023-09-27 18:02] LABS: Troponin I Less than 0.010 ng/mL (< 0.028)
[2023-09-27] MEDS ORDERED: Naloxone HCl 0.4 mg/ml Vial ONE (18:59)
[2023-09-27] MEDS ORDERED: Morphine 4 MG/ML VIAL SLOW IVP PRN (19:29)
[2023-09-27] MEDS ORDERED: Acetaminophen 325 MG TAB PO PRN (19:30)
[2023-09-27] MEDS ORDERED: Ondansetron PF 4 MG/2 ML Vial IVP PRN (19:30)
[2023-09-27] MEDS ORDERED: Ondansetron ODT 4 MG TAB SL PRN (19:30)
[2023-09-27] MEDS ORDERED: Midazolam HCl 2 mg/2 ml Vial ONE (20:21)
[2023-09-27] MEDS ORDERED: Ketorolac Tromethamine 30 MG (1 mL) VIAL ONE (20:21)
[2023-09-27 20:39] LABS: Troponin I Less than 0.010 ng/mL (< 0.028)
[2023-09-27] MEDS ORDERED: tiZANidine HCl 4 MG TAB PO PRN (21:16)
[2023-09-27] MEDS ORDERED: HYDROcodone/Acetaminophen 7.5/325 mg Tablet PO PRN (21:16)
[2023-09-27] MEDS ORDERED: Morphine 2 MG/ML VIAL SLOW IVP PRN (21:16)
[2023-09-28 00:42] LABS: Troponin I Less than 0.010 ng/mL (< 0.028)
[2023-09-28] MEDS ORDERED: Dextrose 50% Abboject 50 ML SYRINGE SLOW IVP PRN (01:06)
[2023-09-28] MEDS ORDERED: Dextrose 5% in Water 1,000 ML IV PRN (01:06)
[2023-09-28] MEDS ORDERED: Glucagon 1 MG/ML KIT IM PRN (01:06)
[2023-09-28] MEDS: Sodium Chloride 0.9% 1,000 ML IV SCH (02:47)
[2023-09-28] MEDS: HYDROcodone/Acetaminophen 10/325 mg Tablet PO PRN (02:48)
[2023-09-28] MEDS: Vancomycin (BATCH) 2.5 GM in Premix 1 BAG IVPB SCH (02:48)
[2023-09-28 03:30] LABS: Bacteria/HPF None Seen HPF (None Seen); Bilirubin Negative (Negative); Blood, Urine Negative (Negative); CAUTI Indications for Culture Alt mental st,lethar; Clarity Clear (Clear); Glucose, Urine (Dipstick) 30 mg/dL (Negative); Ketone, Urine 10 mg/dL (Negative); Leukocyte Negative Leu/uL (Negative); Nitrite Negative (Negative); Protein, Urine (Dipstick) 20 mg/dL (Neg-Trace); RBC/HPF 0-3 HPF (0-3); Squamous Epithelial 0-3 HPF (0-3); WBC/HPF 0-3 HPF (0-3)
[2023-09-28 03:34] LABS: Urine Culture Reflex No No
[2023-09-28 04:00] LABS: #Basophils Less than 0.03 10x3/uL (0.0-0.2); #Eosinphils Less than 0.03 10x3/uL (0.0-0.7); %Basophils 0.1 % (0.0-1.0); %Eosinophils 0.1 % (0.0-10.0); %Lymphocytes 7.5 % (21.0-51.0); %Monocytes 5.6 % (0.0-10.0); %Neutrophils 86.4 % (42.0-75.0); Hemoglobin 11.6 g/dL (14.0-18.0); Mean Corpuscular HGB CONC 34.1 g/dL (32.0-36.0); Mean Corpuscular Hemoglobin 30.4 pg (27.0-31.0); Mean Platelet Volume 12.4 fL (7.4-10.4); Platelet Count 138 10x3/uL (130-400); RBC Distribution Width 12.5 % (11.5-14.5); Red Blood Cell (RBC) Count 3.82 mill/uL (4.70-6.10)
[2023-09-28 04:28] LABS: ALT (SGPT) 55 U/L (8-55); AST (SGOT) 33 U/L (5-34); Albumin 3.3 g/dL (3.4-4.8); Alkaline Phosphatase 75 U/L (40-110); Anion Gap 11 mmol/L (10-20); BUN (Urea Nitrogen) 11 mg/dL (8.4-25.7); Bilirubin, Total 0.8 mg/dL (0.2-1.2); Calc. Creatinine Clearance 116 mL/min (70-130); Calcium 8.7 mg/dL (7.8-10.44); Carbon Dioxide 23 mmol/L (23-31); Cardiac Risk 2.6 (Less than 4.5); Chloride 104 mmol/L (98-107); Cholesterol 76 mg/dl (< 200 Desired); Estimated GFR 98; Globulin 2.9 g/dL (2.4-3.5); Glucose 256 mg/dL (80-115); HDL Cholesterol 29 mg/dL (>60 Neg Risk); LDL Cholesterol, Calculated 25 mg/dL; Potassium 3.8 mmol/L (3.5-5.1); Protein, Total 6.2 g/dL (5.8-8.1); Sodium 134 mmol/L (136-145); Triglycerides 108 mg/dL (Less than 150)
[2023-09-28] MEDS ORDERED: glipiZIDE 10 MG TAB PO SCH ×2 (09:00)
[2023-09-28] MEDS ORDERED: Enoxaparin 40 MG (0.4 mL) SYRINGE SC SCH (09:00)
[2023-09-28] MEDS: Doxazosin 2 MG TAB PO SCH (11:31)
[2023-09-28] MEDS: Gabapentin 300 MG CAP PO SCH (11:35)
[2023-09-28] MEDS: glipiZIDE 10 MG TAB PO SCH ×2 (11:36→17:59)
[2023-09-28] MEDS: Senokot S 8.6-50 MG TAB PO SCH (11:38)
[2023-09-28] MEDS: Ezetimibe 10 MG TAB PO SCH (11:38)
[2023-09-28] MEDS: Sertraline 25 MG TAB PO SCH (11:38)
[2023-09-28] MEDS: Atenolol 50 MG TAB PO SCH (11:38)
[2023-09-28] MEDS: Alogliptin 25 MG TAB PO SCH (11:38)
[2023-09-28] MEDS: Rosuvastatin 5 MG TAB PO SCH (11:39)
[2023-09-28] MEDS: metFORMIN 500 MG TAB PO SCH (11:39)
[2023-09-28] MEDS: Pantoprazole DR 40 MG TAB PO SCH (11:39)
[2023-09-28] MEDS: Spironolactone 25 MG TAB PO SCH (11:40)
[2023-09-28] MEDS ORDERED: Vancomycin (BATCH) 1.25 GM in Premix 1 BAG IVPB SCH (12:00)
[2023-09-28] MEDS: Polyethylene Glycol 3350 17 GM Packet PO SCH (12:56)
[2023-09-28 13:57] LABS: Amphetamine Not Detected (NotDetected); Barbiturates Screen Not Detected (NotDetected); Benzodiazepine Screen Detected (NotDetected); Cocaine Metabolite Screen Not Detected (NotDetected); Methadone Not Detected (NotDetected); Methamphetamine Not Detected (NotDetected); Opiate Screen Detected (NotDetected); Oxycodone Screen Not Detected (NotDetected); Phencyclidine (PCP) Not Detected (NotDetected); THC/Cannabinoid Screen Not Detected (NotDetected); Tricyclic Screen Detected (NotDetected)
[2023-09-28] MEDS: HYDROcodone/Acetaminophen 10/325 mg Tablet PO SCH (18:19)
[2023-09-28] MEDS: Amlodipine 10 MG TAB PO SCH (21:50)
[2023-09-29 05:28] LABS: #Basophils 0.03 10x3/uL (0.0-0.2); %Basophils 0.2 % (0.0-1.0); %Eosinophils 0.2 % (0.0-10.0); %Lymphocytes 10.4 % (21.0-51.0); %Monocytes 7.7 % (0.0-10.0); %Neutrophils 81.1 % (42.0-75.0); Hematocrit 33.8 % (42.0-52.0); Hemoglobin 11.3 g/dL (14.0-18.0); Mean Corpuscular HGB CONC 33.4 g/dL (32.0-36.0); Mean Corpuscular Hemoglobin 30.4 pg (27.0-31.0); Mean Corpuscular Volume 90.9 fL (78.0-98.0); Mean Platelet Volume 12.6 fL (7.4-10.4); Platelet Count 125 10x3/uL (130-400); RBC Distribution Width 12.7 % (11.5-14.5); Red Blood Cell (RBC) Count 3.72 mill/uL (4.70-6.10)
[2023-09-29 05:52] LABS: ALT (SGPT) 38 U/L (8-55); AST (SGOT) 25 U/L (5-34); Albumin 3.2 g/dL (3.4-4.8); Alkaline Phosphatase 63 U/L (40-110); Anion Gap 16 mmol/L (10-20); BUN (Urea Nitrogen) 13 mg/dL (8.4-25.7); Calc. Creatinine Clearance 98 mL/min (70-130); Calcium 8.8 mg/dL (7.8-10.44); Carbon Dioxide 20 mmol/L (23-31); Chloride 103 mmol/L (98-107); Estimated GFR 90; Globulin 3.3 g/dL (2.4-3.5); Glucose 197 mg/dL (80-115); Potassium 4.1 mmol/L (3.5-5.1); Protein, Total 6.5 g/dL (5.8-8.1); Sodium 135 mmol/L (136-145)
[2023-09-29] MEDS: tiZANidine HCl 4 MG TAB PO SCH (08:51)
[2023-09-29] MEDS: Spironolactone 25 MG TAB PO SCH (08:51)
[2023-09-29 09:47] LABS: SARS-CoV-2 E Target Negative; SARS-CoV-2 N2 Target Negative; SARS-CoV-2 NAA Rapid Test Not Detected (NotDetected); SARS-CoV-2 RdRP gene Negative
[2023-09-29] MEDS: Cefepime 2 GM in Sodium Chloride 0.9% 100 ML IVPB SCH (12:05)
[2023-09-29] MEDS: Vancomycin (BATCH) 1.25 GM in Premix 1 BAG IVPB SCH (12:06)
[2023-09-29] MEDS: metroNIDAZOLE 500 MG in Premix 1 BAG IVPB SCH (12:06)
[2023-09-29] MEDS ORDERED: Iopamidol-370 76% 500 ML MDV (1 ML CHARGE) ONE (13:15)
[2023-09-29] MEDS: Gabapentin 300 MG CAP PO SCH (13:16)
[2023-09-29] MEDS: fentaNYL 50 mcg/mL 1 mL Vial SLOW IVP PRN (14:25)
[2023-09-29] MEDS ORDERED: HumaLOG 300 UNITS/3 ML VIAL SC PRN ×2 (17:17)
[2023-09-29] MEDS ORDERED: Insulin Lispro 100 UNIT/ML 10 ML VIAL SC PRN ×2 (17:30)
[2023-09-29] MEDS ORDERED: Acetaminophen 500 MG TAB PER TUBE PRN (17:39)
[2023-09-29] MEDS: Sodium Chloride 0.9% 1,000 ML IV SCH (19:18)
[2023-09-29] MEDS: fentaNYL 50 mcg/mL 1 mL Vial ONE (20:30)
[2023-09-29] MEDS ORDERED: Lorazepam 2 MG/ML VIAL SLOW IVP SCH (20:45)
[2023-09-29] MEDS: Etomidate 40 MG (20 mL) VIAL IVP SCH (20:50)
[2023-09-29] MEDS ORDERED: Etomidate 40 MG (20 mL) VIAL ONE (20:50)
[2023-09-29] MEDS ORDERED: Rocuronium Bromide 10 MG/ML (10ML VIAL) ONE (20:50)
[2023-09-29] MEDS: Rocuronium Bromide 10 MG/ML (10ML VIAL) IVP SCH ×2 (20:51→23:20)
[2023-09-29] MEDS ORDERED: Ventilator Sedation Protocol 1 EACH FS SCH (21:00)
[2023-09-29] MEDS ORDERED: Morphine 2 MG/ML VIAL SLOW IVP PRN (21:30)
[2023-09-29] MEDS ORDERED: Fentanyl BOLUS 250 ML IVPB PRN (21:30)
[2023-09-29] MEDS ORDERED: DISCONTINUE PREVIOUS NARCOTIC PAIN MEDICATIONS AND BENZODIAZEPINES FS SCH (21:30)
[2023-09-29] MEDS ORDERED: Propofol BOLUS 1,000 MG/100 ML VIAL IV PRN (21:30)
[2023-09-29 21:44] LABS: #Basophils Less than 0.03 10x3/uL (0.0-0.2); #Eosinphils Less than 0.03 10x3/uL (0.0-0.7); %Basophils 0.2 % (0.0-1.0); %Lymphocytes 5.5 % (21.0-51.0); %Monocytes 5.6 % (0.0-10.0); Hemoglobin 11.3 g/dL (14.0-18.0); Mean Corpuscular HGB CONC 34.2 g/dL (32.0-36.0); Mean Corpuscular Volume 90.7 fL (78.0-98.0); Mean Platelet Volume 12.2 fL (7.4-10.4); Platelet Count 96 10x3/uL (130-400); RBC Distribution Width 12.2 % (11.5-14.5); Red Blood Cell (RBC) Count 3.64 mill/uL (4.70-6.10)
[2023-09-29 21:54] LABS: ALT (SGPT) 33 U/L (8-55); AST (SGOT) 34 U/L (5-34); Alkaline Phosphatase 66 U/L (40-110); Anion Gap 16 mmol/L (10-20); BUN (Urea Nitrogen) 12 mg/dL (8.4-25.7); Calc. Creatinine Clearance 100 mL/min (70-130); Calcium 8.5 mg/dL (7.8-10.44); Carbon Dioxide 18 mmol/L (23-31); Chloride 102 mmol/L (98-107); Estimated GFR 92; Globulin 3.5 g/dL (2.4-3.5); Glucose 228 mg/dL (80-115); Magnesium 1.7 mg/dL (1.6-2.6); Phosphorus 2.5 mg/dL (2.3-4.7); Potassium 4.1 mmol/L (3.5-5.1); Protein, Total 6.5 g/dL (5.8-8.1); Sodium 132 mmol/L (136-145)
[2023-09-29 22:15] LABS: Actual Bicarbonate (HCO3a) 20.3 mEq/L (22-28); Base Excess (BEa) -3.7 mEq/L (-2.0 to +3.0); CO2 Tension 33.2 mmHg (35.0-45.0); Calcium, Ionized (arterial) 1.12 mmol/L (1.12-1.30); Carboxyhemoglobin (COHb) 0.5 gm% (0.0-3.0); Hematocrit-ABG 35 % (42.0-52.0); O2 Tension (PaO2), arterial 241.5 mmHg (> 80.0); Potassium - ABG Lab 3.94 mmol/L (3.70-5.30); pH, Arterial 7.404 (7.35-7.45)
[2023-09-29 22:16] LABS: Puncture Site LRA
[2023-09-29] MEDS: Fentanyl CADD 100 ML IV SCH (22:37)
[2023-09-29] MEDS: Labetalol HCl 100 MG/20 ML VIAL SLOW IVP SCH (22:45)
[2023-09-29] MEDS: Acetaminophen 650 MG/20.3 ML UDCUP PO PRN (22:46)
[2023-09-29] MEDS: Lorazepam 2 MG/ML VIAL SLOW IVP PRN (22:51)
[2023-09-29] MEDS: Propofol 1,000 MG/100 ML VIAL IV ONE (23:43)
[2023-09-30 00:15] LABS: Bilirubin Negative (Negative); Blood, Urine Trace (Negative); CAUTI Indications for Culture Alt mental st,lethar; Clarity Clear (Clear); Glucose, Urine (Dipstick) 30 mg/dL (Negative); Ketone, Urine 10 mg/dL (Negative); Leukocyte Negative Leu/uL (Negative); Nitrite Negative (Negative); Protein, Urine (Dipstick) 50 mg/dL (Neg-Trace); Squamous Epithelial 0-3 HPF (0-3); WBC/HPF 0-3 HPF (0-3); pH, Urine 5.5 (5.0-9.0)
[2023-09-30 00:16] LABS: Bacteria/HPF 1+ HPF (None Seen); Specific Gravity, Urine 1.048 (1.002-1.036)
[2023-09-30 00:18] LABS: Urine Culture Reflex No No
[2023-09-30] MEDS: Ketorolac Tromethamine 30 MG (1 mL) VIAL IVP SCH (00:37)
[2023-09-30] MEDS: Rocuronium Bromide 10 MG/ML (10ML VIAL) ONE (00:57)
[2023-09-30] MEDS: Cefepime 2 GM in Sodium Chloride 0.9% 100 ML IVPB SCH (00:58)
[2023-09-30] MEDS: Rocuronium Bromide 10 MG/ML (10ML VIAL) IVP SCH (01:51)
[2023-09-30] MEDS: Propofol 1,000 MG/100 ML VIAL IV PRN (02:03)
[2023-09-30] MEDS: Rocuronium Bromide 50 MG/5 ML VIAL IVP SCH ×2 (02:06)
[2023-09-30 04:23] LABS: #Basophils Less than 0.03 10x3/uL (0.0-0.2); #Eosinphils Less than 0.03 10x3/uL (0.0-0.7); %Basophils 0.2 % (0.0-1.0); %Eosinophils 0.1 % (0.0-10.0); %Lymphocytes 4.5 % (21.0-51.0); %Monocytes 6.2 % (0.0-10.0); %Neutrophils 88.1 % (42.0-75.0); Hematocrit 30.2 % (42.0-52.0); Hemoglobin 10.1 g/dL (14.0-18.0); Mean Corpuscular HGB CONC 33.4 g/dL (32.0-36.0); Mean Corpuscular Hemoglobin 30.4 pg (27.0-31.0); Mean Platelet Volume 13.1 fL (7.4-10.4); Platelet Count 96 10x3/uL (130-400); RBC Distribution Width 12.4 % (11.5-14.5); Red Blood Cell (RBC) Count 3.32 mill/uL (4.70-6.10)
[2023-09-30 04:50] LABS: Vancomycin, Random 25.3 ug/mL (See Comment)
[2023-09-30 04:56] LABS: ALT (SGPT) 28 U/L (8-55); AST (SGOT) 27 U/L (5-34); Albumin 2.7 g/dL (3.4-4.8); Alkaline Phosphatase 58 U/L (40-110); Anion Gap 15 mmol/L (10-20); BUN (Urea Nitrogen) 16 mg/dL (8.4-25.7); Bilirubin, Total 0.8 mg/dL (0.2-1.2); Calc. Creatinine Clearance 66 mL/min (70-130); Calcium 8.1 mg/dL (7.8-10.44); Carbon Dioxide 20 mmol/L (23-31); Chloride 103 mmol/L (98-107); Estimated GFR 57; Globulin 3.1 g/dL (2.4-3.5); Glucose 192 mg/dL (80-115); Potassium 3.5 mmol/L (3.5-5.1); Protein, Total 5.8 g/dL (5.8-8.1); Sodium 134 mmol/L (136-145)
[2023-09-30] MEDS: Sodium Chloride 0.9% 1,000 ML IV SCH ×2 (05:35→09:53)
[2023-09-30] MEDS: Albumin 25% 25 GM (100 mL) BOT IVPB SCH ×3 (05:35→17:25)
[2023-09-30 08:01] LABS: Actual Bicarbonate (HCO3a) 18.3 mEq/L (22-28); Base Excess (BEa) -7.5 mEq/L (-2.0 to +3.0); CO2 Tension 38.4 mmHg (35.0-45.0); Calcium, Ionized (arterial) 1.12 mmol/L (1.12-1.30); Carboxyhemoglobin (COHb) 0.3 gm% (0.0-3.0); Hematocrit-ABG 33 % (42.0-52.0); Hemoglobin (Hb) 11.2 g/dL (14.0-18.0); O2 Tension (PaO2), arterial 102.2 mmHg (> 80.0); Potassium - ABG Lab 4.22 mmol/L (3.70-5.30); pH, Arterial 7.297 (7.35-7.45)
[2023-09-30 08:28] LABS: Puncture Site LRA
[2023-09-30] MEDS: Dexmedetomidine In 0.9 % NaCl 100 ML IVPB SCH (17:50)
[2023-09-30 19:25] LABS: ALT (SGPT) 22 U/L (8-55); AST (SGOT) 29 U/L (5-34); Albumin 3.3 g/dL (3.4-4.8); Alkaline Phosphatase 49 U/L (40-110); Anion Gap 13 mmol/L (10-20); BUN (Urea Nitrogen) 17 mg/dL (8.4-25.7); Bilirubin, Total 1.1 mg/dL (0.2-1.2); Calc. Creatinine Clearance 84 mL/min (70-130); Calcium 8.1 mg/dL (7.8-10.44); Carbon Dioxide 16 mmol/L (23-31); Chloride 107 mmol/L (98-107); Estimated GFR 75; Globulin 2.7 g/dL (2.4-3.5); Glucose 181 mg/dL (80-115); Potassium 3.4 mmol/L (3.5-5.1); Sodium 133 mmol/L (136-145)
[2023-09-30] MEDS: Vancomycin (BATCH) 1.5 GM in Premix 1 BAG IVPB SCH (23:42)
[2023-10-01 04:27] LABS: Hematocrit 34.9 % (42.0-52.0); Hemoglobin 11.7 g/dL (14.0-18.0); Mean Corpuscular HGB CONC 33.5 g/dL (32.0-36.0); Mean Corpuscular Hemoglobin 30.5 pg (27.0-31.0); Mean Corpuscular Volume 90.9 fL (78.0-98.0); Mean Platelet Volume 13.4 fL (7.4-10.4); Platelet Count 55 10x3/uL (130-400); RBC Distribution Width 12.6 % (11.5-14.5); Red Blood Cell (RBC) Count 3.84 mill/uL (4.70-6.10)
[2023-10-01 04:43] LABS: Vancomycin, Random 26.9 ug/mL (See Comment)
[2023-10-01 04:47] LABS: ALT (SGPT) 24 U/L (8-55); AST (SGOT) 37 U/L (5-34); Albumin 3.2 g/dL (3.4-4.8); Alkaline Phosphatase 66 U/L (40-110); Anion Gap 15 mmol/L (10-20); BUN (Urea Nitrogen) 14 mg/dL (8.4-25.7); Bilirubin, Total 1.5 mg/dL (0.2-1.2); Calc. Creatinine Clearance 105 mL/min (70-130); Carbon Dioxide 15 mmol/L (23-31); Chloride 108 mmol/L (98-107); Estimated GFR 95; Globulin 2.7 g/dL (2.4-3.5); Glucose 201 mg/dL (80-115); Potassium 3.4 mmol/L (3.5-5.1); Protein, Total 5.9 g/dL (5.8-8.1); Sodium 135 mmol/L (136-145)
[2023-10-01 04:57] LABS: Anisocytosis SLIGHT = 6-15 cells HPF (0-5); Band 43 % (5-11); Hypochromia SLIGHT = 6-15 cells HPF (0-5); Large Platelets 4.8 % (0-5); Lymphocytes 2 % (21-51); Monocytes 1 % (0-10); Neutrophil 53 % (42-75); Nucleated RBC (Manual Ct) 1 % (0); Platelet Adequacy Comment Platelets Decreased; Poikilocytosis MODERATE=16-30 cells HPF (0-5); Polychromasia SLIGHT = 2-3 cells HPF (0-2)
[2023-10-01] MEDS: Insulin Regular, Human 100 UNIT/ML 10 ML VIAL SC PRN (05:45)
[2023-10-01] MEDS ORDERED: Vancomycin 1 GM VIAL ONE (06:41)
[2023-10-01] MEDS ORDERED: Bacitracin Zinc Ointment 30 gm TUBE ONE (07:00)
[2023-10-01] MEDS ORDERED: fentaNYL PF 100 MCG/2 ML SYRINGE ONE (07:01)
[2023-10-01] MEDS ORDERED: Lidocaine 1% PF 5 ML VIAL ONE (07:01)
[2023-10-01] MEDS ORDERED: Midazolam HCl 2 mg/2 ml Vial ONE (07:01)
[2023-10-01] MEDS ORDERED: Ondansetron PF 4 MG/2 ML Vial ONE (07:01)
[2023-10-01] MEDS ORDERED: PROPOFOL 20 ML ONE (07:01)
[2023-10-01] MEDS ORDERED: Dexamethasone 20 MG/5 ML VIAL ONE (07:01)
[2023-10-01] MEDS ORDERED: Rocuronium Bromide 10 MG/ML (10ML VIAL) ONE (07:01)
[2023-10-01] MEDS ORDERED: PHENYLEPHRINE-NS 100 MCG/ML 10 ML SYRINGE ONE ×3 (07:03→08:54)
[2023-10-01] MEDS ORDERED: PROPOFOL 200 MG/20 ML VIAL ONE (07:25)
[2023-10-01] MEDS ORDERED: SUGAMMADEX SODIUM 200 MG/2 ML VIAL ONE (08:09)
[2023-10-01] MEDS ORDERED: Electrolyte Replacement Protocol FS PRN (08:30)
[2023-10-01] MEDS ORDERED: Ondansetron PF 4 MG/2 ML Vial IVP PRN (09:32)
[2023-10-01] MEDS: Pantoprazole 40 MG VIAL IVP SCH (10:35)
[2023-10-01] MEDS: Potassium Bicarbonate/Cit Ac 20 MEQ TAB PER TUBE SCH ×2 (10:38→10:41)
[2023-10-01 11:15] LABS: Hematocrit 28.6 % (42.0-52.0); Hemoglobin 9.6 g/dL (14.0-18.0); Mean Corpuscular HGB CONC 33.6 g/dL (32.0-36.0); Mean Corpuscular Hemoglobin 31.2 pg (27.0-31.0); Mean Corpuscular Volume 92.9 fL (78.0-98.0); Mean Platelet Volume 12.1 fL (7.4-10.4); Platelet Count 90 10x3/uL (130-400); RBC Distribution Width 12.8 % (11.5-14.5); Red Blood Cell (RBC) Count 3.08 mill/uL (4.70-6.10)
[2023-10-01 11:27] LABS: ALT (SGPT) 23 U/L (8-55); AST (SGOT) 42 U/L (5-34); Albumin 3.4 g/dL (3.4-4.8); Alkaline Phosphatase 69 U/L (40-110); Anion Gap 15 mmol/L (10-20); BUN (Urea Nitrogen) 14 mg/dL (8.4-25.7); Bilirubin, Total 1.2 mg/dL (0.2-1.2); Calc. Creatinine Clearance 109 mL/min (70-130); Calcium 8.2 mg/dL (7.8-10.44); Carbon Dioxide 15 mmol/L (23-31); Chloride 110 mmol/L (98-107); Estimated GFR 96; Globulin 2.8 g/dL (2.4-3.5); Glucose 234 mg/dL (80-115); Magnesium 1.8 mg/dL (1.6-2.6); Potassium 3.7 mmol/L (3.5-5.1); Protein, Total 6.2 g/dL (5.8-8.1); Sodium 136 mmol/L (136-145)
[2023-10-01 11:47] LABS: Band 38 % (5-11); Burr Cells SLIGHT = 2-5 cells HPF (0-1); Large Platelets 11.7 % (0-5); Lymphocytes 1 % (21-51); Metamyelocyte 1 % (0-0); Monocytes 4 % (0-10); Neutrophil 55 % (42-75); Platelet Adequacy Comment Platelets Decreased; Polychromasia SLIGHT = 2-3 cells HPF (0-2)
[2023-10-01] MEDS ORDERED: Insulin Regular, Human 100 UNIT/ML 10 ML VIAL SC PRN (13:15)
[2023-10-01 13:36] LABS: Potassium 4.1 mmol/L (3.5-5.1)
[2023-10-01] MEDS: Enoxaparin 40 MG (0.4 mL) SYRINGE SC SCH (14:22)
[2023-10-01] MEDS: Magnesium 2 GM/50 ML(in water) 2 GM in Premix 1 BAG IVPB SCH (14:37)
[2023-10-01] MEDS: Electrolyte Replacement Protocol 1 EACH FS ONE (14:54)
[2023-10-01] MEDS: Vancomycin (BATCH) 1.25 GM in Premix 1 BAG IVPB SCH (23:30)
[2023-10-02 05:35] LABS: #Basophils Less than 0.03 10x3/uL (0.0-0.2); #Eosinphils Less than 0.03 10x3/uL (0.0-0.7); %Basophils 0.2 % (0.0-1.0); %Eosinophils 0.4 % (0.0-10.0); %Lymphocytes 7.6 % (21.0-51.0); %Monocytes 7.6 % (0.0-10.0); %Neutrophils 83.2 % (42.0-75.0); Hematocrit 25.5 % (42.0-52.0); Hemoglobin 8.4 g/dL (14.0-18.0); Mean Corpuscular HGB CONC 32.9 g/dL (32.0-36.0); Mean Corpuscular Volume 94.1 fL (78.0-98.0); Mean Platelet Volume 12.7 fL (7.4-10.4); Platelet Count 78 10x3/uL (130-400); RBC Distribution Width 13.2 % (11.5-14.5); Red Blood Cell (RBC) Count 2.71 mill/uL (4.70-6.10)
[2023-10-02 05:48] LABS: Vancomycin, Random 15.2 ug/mL (See Comment)
[2023-10-02 05:49] LABS: ALT (SGPT) 21 U/L (8-55); AST (SGOT) 35 U/L (5-34); Albumin 2.9 g/dL (3.4-4.8); Alkaline Phosphatase 60 U/L (40-110); Anion Gap 17 mmol/L (10-20); BUN (Urea Nitrogen) 16 mg/dL (8.4-25.7); Bilirubin, Total 0.7 mg/dL (0.2-1.2); Calc. Creatinine Clearance 107 mL/min (70-130); Calcium 7.8 mg/dL (7.8-10.44); Carbon Dioxide 13 mmol/L (23-31); Chloride 111 mmol/L (98-107); Estimated GFR 95; Globulin 2.8 g/dL (2.4-3.5); Glucose 220 mg/dL (80-115); Potassium 3.9 mmol/L (3.5-5.1); Protein, Total 5.7 g/dL (5.8-8.1); Sodium 137 mmol/L (136-145)
[2023-10-02 06:19] LABS: Chloride (VBG) 107 mmol/L (98-106); Potassium (VBG) 3.99 mmol/L (3.70-5.30); Sodium 137 mmol/L (133-146)
[2023-10-02 06:23] LABS: Actual Bicarbonate (HCO3v) 14.7 mEq/L (22-28); pH (venous) 7.182 (7.32-7.43)
[2023-10-02] MEDS: Sodium Bicarb 50 mEq/50 ML VIAL IVP SCH (07:17)
[2023-10-02] MEDS ORDERED: Enoxaparin 40 MG (0.4 mL) SYRINGE SC SCH (09:00)
[2023-10-02] MEDS: Furosemide 40 MG (4 mL) VIAL SLOW IVP SCH (10:40)
[2023-10-02] MEDS: Vancomycin HCl 750 MG in Sodium Chloride 0.9% 250 ML 250 ML IVPB SCH (10:41)
[2023-10-02] MEDS: Propofol 1,000 MG/100 ML VIAL IV PRN (10:45)
[2023-10-02] MEDS: Enoxaparin 40 MG (0.4 mL) SYRINGE SC SCH (10:59)
[2023-10-02] MEDS ORDERED: Propofol BOLUS 1,000 MG/100 ML VIAL IV PRN (11:15)
[2023-10-02] MEDS: Propofol 1,000 MG/100 ML VIAL IV ONE (13:56)
[2023-10-02 15:38] LABS: Actual Bicarbonate (HCO3a) 17.8 mEq/L (22-28); Base Excess (BEa) -6.7 mEq/L (-2.0 to +3.0); CO2 Tension 31.8 mmHg (35.0-45.0); Calcium, Ionized (arterial) 1.08 mmol/L (1.12-1.30); Carboxyhemoglobin (COHb) 0.2 gm% (0.0-3.0); Hematocrit-ABG 26 % (42.0-52.0); Hemoglobin (Hb) 8.9 g/dL (14.0-18.0); O2 Tension (PaO2), arterial 61.7 mmHg (> 80.0); Potassium - ABG Lab 3.08 mmol/L (3.70-5.30); pH, Arterial 7.366 (7.35-7.45)
[2023-10-02 15:49] LABS: Puncture Site RBA
[2023-10-02] MEDS: Potassium Bicarbonate/Cit Ac 20 MEQ TAB PER TUBE SCH (19:43)
[2023-10-02] MEDS: Amlodipine 10 MG TAB PER TUBE SCH (21:15)
[2023-10-02] MEDS: Gabapentin 300 MG CAP PER TUBE SCH (21:16)
[2023-10-02] MEDS: Senokot S 8.6-50 MG TAB PER TUBE SCH (21:17)
[2023-10-02] MEDS: Atenolol 50 MG TAB PER TUBE SCH (21:17)
[2023-10-03 00:26] LABS: Potassium 3.2 mmol/L (3.5-5.1)
[2023-10-03] MEDS: Potassium Bicarbonate/Cit Ac 20 MEQ TAB PER TUBE SCH ×2 (01:26→05:44)
[2023-10-03 05:20] LABS: ALT (SGPT) 17 U/L (8-55); AST (SGOT) 19 U/L (5-34); Albumin 2.6 g/dL (3.4-4.8); Alkaline Phosphatase 82 U/L (40-110); Anion Gap 9 mmol/L (10-20); BUN (Urea Nitrogen) 25 mg/dL (8.4-25.7); Bilirubin, Total 0.7 mg/dL (0.2-1.2); Calc. Creatinine Clearance 92 mL/min (70-130); Carbon Dioxide 21 mmol/L (23-31); Chloride 108 mmol/L (98-107); Estimated GFR 83; Globulin 2.8 g/dL (2.4-3.5); Glucose 311 mg/dL (80-115); Potassium 3.4 mmol/L (3.5-5.1); Protein, Total 5.4 g/dL (5.8-8.1); Sodium 135 mmol/L (136-145)
[2023-10-03 05:22] LABS: #Basophils Less than 0.03 10x3/uL (0.0-0.2); %Basophils 0.3 % (0.0-1.0); %Eosinophils 1.7 % (0.0-10.0); %Lymphocytes 13.7 % (21.0-51.0); %Monocytes 7.8 % (0.0-10.0); %Neutrophils 75.9 % (42.0-75.0); Hematocrit 22.6 % (42.0-52.0); Hemoglobin 7.7 g/dL (14.0-18.0); Mean Corpuscular HGB CONC 34.1 g/dL (32.0-36.0); Mean Corpuscular Hemoglobin 30.8 pg (27.0-31.0); Mean Corpuscular Volume 90.4 fL (78.0-98.0); Mean Platelet Volume 12.7 fL (7.4-10.4); Platelet Count 88 10x3/uL (130-400); RBC Distribution Width 13.2 % (11.5-14.5)
[2023-10-03 05:29] LABS: CRP,High Sensitivity (Inhouse) 23.28 mg/dL (< or = 0.5)
[2023-10-03] MEDS: Potassium Bicarbonate/Cit Ac 20 MEQ TAB PO SCH (07:12)
[2023-10-03] MEDS: Acetaminophen 650 MG/20.3 ML UDCUP PER TUBE PRN ×2 (08:33→14:34)
[2023-10-03] MEDS: Sertraline 25 MG TAB PER TUBE SCH (08:34)
[2023-10-03] MEDS: Doxazosin 2 MG TAB PER TUBE SCH (08:34)
[2023-10-03] MEDS ORDERED: Loperamide HCl 2 MG CAP PO PRN (08:34)
[2023-10-03] MEDS: Spironolactone 25 MG TAB PER TUBE SCH (08:34)
[2023-10-03] MEDS: Ezetimibe 10 MG TAB PER TUBE SCH (08:35)
[2023-10-03] MEDS: Rosuvastatin 5 MG TAB PER TUBE SCH (08:35)
[2023-10-03] MEDS: Polyethylene Glycol 3350 17 GM Packet PER TUBE SCH (08:36)
[2023-10-03] MEDS: Clotrimazole 1 % Cream 30 GM TUBE TOP SCH (09:43)
[2023-10-03] MEDS: Dexmedetomidine In 0.9 % NaCl 100 ML IVPB SCH (10:35)
[2023-10-03 13:11] LABS: Hematocrit 24.6 % (42.0-52.0); Hemoglobin 8.4 g/dL (14.0-18.0)
[2023-10-03] MEDS ORDERED: Meropenem 1 GM in Sodium Chloride 0.9% 100 ML IVPB SCH (14:00)
[2023-10-03] MEDS: Vancomycin HCl 750 MG in Sodium Chloride 0.9% 250 ML 250 ML IVPB SCH (14:34)
[2023-10-03] MEDS: Meropenem 1 GM in Sodium Chloride 0.9% 100 ML IVPB SCH ×2 (16:23→21:12)
[2023-10-03] MEDS: Fentanyl CADD 100 ML IV SCH (17:09)
[2023-10-03] MEDS ORDERED: Vancomycin 1 GM in Sodium Chloride 0.9% 250 ML 250 ML IVPB SCH (21:00)
[2023-10-03] MEDS: Insulin Lispro 100 UNIT/ML 10 ML VIAL SC PRN (23:12)
[2023-10-04 05:07] LABS: #Basophils Less than 0.03 10x3/uL (0.0-0.2); %Basophils 0.3 % (0.0-1.0); %Eosinophils 3.1 % (0.0-10.0); %Lymphocytes 13.4 % (21.0-51.0); %Monocytes 10.1 % (0.0-10.0); %Neutrophils 72.8 % (42.0-75.0); Hemoglobin 8.3 g/dL (14.0-18.0); Mean Corpuscular HGB CONC 34.6 g/dL (32.0-36.0); Mean Corpuscular Hemoglobin 31.3 pg (27.0-31.0); Mean Corpuscular Volume 90.6 fL (78.0-98.0); Mean Platelet Volume 13.2 fL (7.4-10.4); Platelet Count 98 10x3/uL (130-400); RBC Distribution Width 13.5 % (11.5-14.5); Red Blood Cell (RBC) Count 2.65 mill/uL (4.70-6.10)
[2023-10-04 05:27] LABS: Vancomycin, Random 12.4 ug/mL (See Comment)
[2023-10-04 06:06] LABS: ALT (SGPT) 15 U/L (8-55); AST (SGOT) 15 U/L (5-34); Albumin 2.4 g/dL (3.4-4.8); Alkaline Phosphatase 90 U/L (40-110); Anion Gap 11 mmol/L (10-20); BUN (Urea Nitrogen) 24 mg/dL (8.4-25.7); Bilirubin, Total 0.7 mg/dL (0.2-1.2); CRP,High Sensitivity (Inhouse) 15.49 mg/dL (< or = 0.5); Calc. Creatinine Clearance 106 mL/min (70-130); Calcium 8.3 mg/dL (7.8-10.44); Carbon Dioxide 21 mmol/L (23-31); Chloride 107 mmol/L (98-107); Estimated GFR 95; Glucose 407 mg/dL (80-115); Potassium 3.5 mmol/L (3.5-5.1); Protein, Total 5.4 g/dL (5.8-8.1); Sodium 135 mmol/L (136-145)
[2023-10-04] MEDS: Insulin Glargine 30 UNITS/0.3 ML VIAL SC SCH ×2 (06:36→22:18)
[2023-10-04 08:31] LABS: Magnesium 2.2 mg/dL (1.6-2.6); Phosphorus 0.8 mg/dL (2.3-4.7)
[2023-10-04] MEDS: Potassium Bicarbonate/Cit Ac 20 MEQ TAB PER TUBE SCH (08:42)
[2023-10-04] MEDS ORDERED: Magnesium 2 GM/50 ML(in water) 2 GM in Premix 1 BAG IVPB SCH (09:00)
[2023-10-04] MEDS: Potassium Phosphate 30 MMOL in Sodium Chloride 0.9% 250 ML 250 ML IVPB SCH (09:49)
[2023-10-04] MEDS: Vancomycin (BATCH) 1.25 GM in Premix 1 BAG IVPB SCH (15:10)
[2023-10-04] MEDS: Potassium Phosphate 15 MMOL in Sodium Chloride 0.9% 100 ML IVPB SCH (21:20)
[2023-10-05] MEDS: Vancomycin (BATCH) 1.25 GM in Premix 1 BAG IVPB SCH (00:03)
[2023-10-05 04:29] LABS: #Basophils Less than 0.03 10x3/uL (0.0-0.2); %Basophils 0.2 % (0.0-1.0); %Eosinophils 1.8 % (0.0-10.0); %Lymphocytes 14.4 % (21.0-51.0); %Monocytes 9.5 % (0.0-10.0); %Neutrophils 72.9 % (42.0-75.0); Hematocrit 25.4 % (42.0-52.0); Hemoglobin 8.6 g/dL (14.0-18.0); Mean Corpuscular HGB CONC 33.9 g/dL (32.0-36.0); Mean Corpuscular Hemoglobin 30.4 pg (27.0-31.0); Mean Corpuscular Volume 89.8 fL (78.0-98.0); Mean Platelet Volume 12.4 fL (7.4-10.4); Platelet Count 136 10x3/uL (130-400); RBC Distribution Width 13.6 % (11.5-14.5); Red Blood Cell (RBC) Count 2.83 mill/uL (4.70-6.10)
[2023-10-05 04:53] LABS: Vancomycin, Random 26.3 ug/mL (See Comment)
[2023-10-05 04:55] LABS: ALT (SGPT) 14 U/L (8-55); AST (SGOT) 20 U/L (5-34); Albumin 2.4 g/dL (3.4-4.8); Alkaline Phosphatase 97 U/L (40-110); Anion Gap 13 mmol/L (10-20); BUN (Urea Nitrogen) 25 mg/dL (8.4-25.7); Bilirubin, Total 0.6 mg/dL (0.2-1.2); Calc. Creatinine Clearance 104 mL/min (70-130); Calcium 8.6 mg/dL (7.8-10.44); Carbon Dioxide 24 mmol/L (23-31); Chloride 108 mmol/L (98-107); Estimated GFR 94; Globulin 3.2 g/dL (2.4-3.5); Glucose 267 mg/dL (80-115); Potassium 3.9 mmol/L (3.5-5.1); Protein, Total 5.6 g/dL (5.8-8.1); Sodium 141 mmol/L (136-145)
[2023-10-05 04:56] LABS: Phosphorus 2.6 mg/dL (2.3-4.7)
[2023-10-05] MEDS ORDERED: Insulin Glargine 30 UNITS/0.3 ML VIAL SC SCH ×2 (09:00→21:00)
[2023-10-05] MEDS: Insulin Glargine 30 UNITS/0.3 ML VIAL SC SCH (09:12)
[2023-10-06 04:43] LABS: #Basophils Less than 0.03 10x3/uL (0.0-0.2); #Eosinphils Less than 0.03 10x3/uL (0.0-0.7); %Basophils 0.2 % (0.0-1.0); %Eosinophils 0.4 % (0.0-10.0); %Lymphocytes 14.8 % (21.0-51.0); %Monocytes 10.6 % (0.0-10.0); %Neutrophils 73.2 % (42.0-75.0); Hematocrit 23.4 % (42.0-52.0); Hemoglobin 7.8 g/dL (14.0-18.0); Mean Corpuscular HGB CONC 33.3 g/dL (32.0-36.0); Mean Corpuscular Hemoglobin 30.7 pg (27.0-31.0); Mean Corpuscular Volume 92.1 fL (78.0-98.0); Mean Platelet Volume 11.9 fL (7.4-10.4); Platelet Count 144 10x3/uL (130-400); RBC Distribution Width 13.5 % (11.5-14.5); Red Blood Cell (RBC) Count 2.54 mill/uL (4.70-6.10)
[2023-10-06 05:27] LABS: ALT (SGPT) 13 U/L (8-55); AST (SGOT) 17 U/L (5-34); Albumin 2.2 g/dL (3.4-4.8); Alkaline Phosphatase 88 U/L (40-110); Anion Gap 13 mmol/L (10-20); BUN (Urea Nitrogen) 28 mg/dL (8.4-25.7); Bilirubin, Total 0.5 mg/dL (0.2-1.2); Calc. Creatinine Clearance 93 mL/min (70-130); Calcium 8.5 mg/dL (7.8-10.44); Carbon Dioxide 24 mmol/L (23-31); Chloride 109 mmol/L (98-107); Estimated GFR 85; Glucose 355 mg/dL (80-115); Potassium 4.2 mmol/L (3.5-5.1); Protein, Total 5.2 g/dL (5.8-8.1); Sodium 142 mmol/L (136-145)
[2023-10-06 05:58] LABS: Phosphorus 3.2 mg/dL (2.3-4.7)
[2023-10-06] MEDS: Magnesium 2 GM/50 ML(in water) 2 GM in Premix 1 BAG IVPB SCH (08:28)
[2023-10-06] MEDS: PROPOFOL 200 MG/20 ML VIAL IV SCH (13:23)
[2023-10-06] MEDS: PROPOFOL 20 ML ONE (14:03)
[2023-10-06] MEDS: Insulin Regular, Human 100 UNIT/ML 10 ML VIAL SC PRN (15:46)
[2023-10-06] MEDS: tiZANidine HCl 4 MG TAB PER TUBE PRN (17:52)
[2023-10-06] MEDS: Insulin Glargine 30 UNITS/0.3 ML VIAL SC SCH (20:55)
[2023-10-07 03:46] LABS: #Basophils Less than 0.03 10x3/uL (0.0-0.2); %Basophils 0.2 % (0.0-1.0); %Eosinophils 1.7 % (0.0-10.0); %Lymphocytes 13.6 % (21.0-51.0); %Monocytes 8.6 % (0.0-10.0); %Neutrophils 75.4 % (42.0-75.0); Hematocrit 24.4 % (42.0-52.0); Hemoglobin 7.9 g/dL (14.0-18.0); Mean Corpuscular HGB CONC 32.4 g/dL (32.0-36.0); Mean Corpuscular Hemoglobin 30.6 pg (27.0-31.0); Mean Corpuscular Volume 94.6 fL (78.0-98.0); Mean Platelet Volume 11.9 fL (7.4-10.4); Platelet Count 172 10x3/uL (130-400); RBC Distribution Width 13.5 % (11.5-14.5); Red Blood Cell (RBC) Count 2.58 mill/uL (4.70-6.10)
[2023-10-07 04:09] LABS: ALT (SGPT) 12 U/L (8-55); AST (SGOT) 15 U/L (5-34); Albumin 2.3 g/dL (3.4-4.8); Alkaline Phosphatase 87 U/L (40-110); Anion Gap 14 mmol/L (10-20); BUN (Urea Nitrogen) 30 mg/dL (8.4-25.7); Bilirubin, Total 0.4 mg/dL (0.2-1.2); Calc. Creatinine Clearance 100 mL/min (70-130); Calcium 8.7 mg/dL (7.8-10.44); Carbon Dioxide 24 mmol/L (23-31); Chloride 112 mmol/L (98-107); Estimated GFR 92; Globulin 3.1 g/dL (2.4-3.5); Glucose 287 mg/dL (80-115); Protein, Total 5.4 g/dL (5.8-8.1); Sodium 146 mmol/L (136-145)
[2023-10-07] MEDS: Insulin Glargine 30 UNITS/0.3 ML VIAL SC SCH ×2 (10:27→20:45)
[2023-10-08] MEDS: traMADol HCl 50 MG TAB PO SCH (02:35)
[2023-10-08 04:13] LABS: #Basophils Less than 0.03 10x3/uL (0.0-0.2); %Basophils 0.1 % (0.0-1.0); %Eosinophils 2.3 % (0.0-10.0); %Lymphocytes 12.8 % (21.0-51.0); %Neutrophils 76.2 % (42.0-75.0); Hematocrit 24.7 % (42.0-52.0); Mean Corpuscular HGB CONC 32.4 g/dL (32.0-36.0); Mean Corpuscular Hemoglobin 29.9 pg (27.0-31.0); Mean Corpuscular Volume 92.2 fL (78.0-98.0); Platelet Count 202 10x3/uL (130-400); RBC Distribution Width 13.4 % (11.5-14.5); Red Blood Cell (RBC) Count 2.68 mill/uL (4.70-6.10)
[2023-10-08 04:32] LABS: ALT (SGPT) 15 U/L (8-55); AST (SGOT) 23 U/L (5-34); Albumin 2.4 g/dL (3.4-4.8); Alkaline Phosphatase 64 U/L (40-110); Anion Gap 12 mmol/L (10-20); BUN (Urea Nitrogen) 20 mg/dL (8.4-25.7); Bilirubin, Total 0.5 mg/dL (0.2-1.2); Calc. Creatinine Clearance 108 mL/min (70-130); Calcium 8.6 mg/dL (7.8-10.44); Carbon Dioxide 25 mmol/L (23-31); Chloride 109 mmol/L (98-107); Estimated GFR 95; Globulin 3.2 g/dL (2.4-3.5); Glucose 162 mg/dL (80-115); Potassium 3.9 mmol/L (3.5-5.1); Protein, Total 5.6 g/dL (5.8-8.1); Sodium 142 mmol/L (136-145)
[2023-10-08] MEDS ORDERED: Acetaminophen 650 MG/20.3 ML UDCUP PO PRN (08:56)
[2023-10-08] MEDS ORDERED: traMADol HCl 50 MG TAB PO PRN (09:39)
[2023-10-08] MEDS ORDERED: traMADol HCl 50 MG TAB PO SCH (10:15)
[2023-10-08] MEDS: traMADol HCl 50 MG TAB PO PRN (10:16)
[2023-10-08] MEDS: Ezetimibe 10 MG TAB PO SCH (10:17)
[2023-10-08] MEDS: Doxazosin 2 MG TAB PO SCH (10:17)
[2023-10-08] MEDS: Atenolol 50 MG TAB PO SCH (10:17)
[2023-10-08] MEDS: Rosuvastatin 5 MG TAB PO SCH (10:17)
[2023-10-08] MEDS: Gabapentin 300 MG CAP PO SCH (10:18)
[2023-10-08] MEDS: Sertraline 25 MG TAB PO SCH (10:18)
[2023-10-08] MEDS: Senokot S 8.6-50 MG TAB PO SCH (10:21)
[2023-10-08] MEDS: Polyethylene Glycol 3350 17 GM Packet PO SCH (10:21)
[2023-10-08] MEDS: Insulin Glargine 30 UNITS/0.3 ML VIAL SC SCH ×2 (10:24→10:40)
[2023-10-08] MEDS: Acetaminophen 500 MG TAB PO SCH (10:24)
[2023-10-08] MEDS: Ibuprofen 600 MG TAB PO SCH (11:36)
[2023-10-08] MEDS: tiZANidine HCl 4 MG TAB PO PRN (18:10)
[2023-10-08] MEDS: Amitriptyline HCl 25 MG TAB PO SCH (21:28)
[2023-10-08] MEDS: Amlodipine 10 MG TAB PO SCH (21:28)
[2023-10-09] MEDS ORDERED: Polyethylene Glycol 3350 17 GM Packet PO PRN (07:24)
[2023-10-09] MEDS: Spironolactone 25 MG TAB PO SCH (09:15)
[2023-10-09 11:02] LABS: #Basophils Less than 0.03 10x3/uL (0.0-0.2); %Basophils 0.4 % (0.0-1.0); %Eosinophils 3.4 % (0.0-10.0); %Lymphocytes 15.6 % (21.0-51.0); %Monocytes 9.1 % (0.0-10.0); Hematocrit 25.1 % (42.0-52.0); Hemoglobin 8.2 g/dL (14.0-18.0); Mean Corpuscular HGB CONC 32.7 g/dL (32.0-36.0); Mean Corpuscular Hemoglobin 30.5 pg (27.0-31.0); Mean Corpuscular Volume 93.3 fL (78.0-98.0); Platelet Count 249 10x3/uL (130-400); RBC Distribution Width 13.2 % (11.5-14.5); Red Blood Cell (RBC) Count 2.69 mill/uL (4.70-6.10)
[2023-10-09 11:08] LABS: ALT (SGPT) 20 U/L (8-55); AST (SGOT) 37 U/L (5-34); Albumin 2.5 g/dL (3.4-4.8); Alkaline Phosphatase 62 U/L (40-110); Anion Gap 12 mmol/L (10-20); BUN (Urea Nitrogen) 17 mg/dL (8.4-25.7); Bilirubin, Total 0.4 mg/dL (0.2-1.2); Calc. Creatinine Clearance 120 mL/min (70-130); Calcium 8.6 mg/dL (7.8-10.44); Carbon Dioxide 26 mmol/L (23-31); Chloride 107 mmol/L (98-107); Estimated GFR 97; Globulin 3.3 g/dL (2.4-3.5); Glucose 78 mg/dL (80-115); Protein, Total 5.8 g/dL (5.8-8.1); Sodium 141 mmol/L (136-145)
[2023-10-09] MEDS ORDERED: Acetaminophen 500 MG TAB PO PRN (13:56)
[2023-10-09] MEDS ORDERED: traMADol HCl 50 MG TAB PO PRN (13:57)
[2023-10-09] MEDS: HYDROcodone/Acetaminophen 5/325 mg Tablet PO PRN (14:17)
[2023-10-10 05:08] VITALS: BMI 29.2
[2023-10-10 07:02] LABS: #Basophils Less than 0.03 10x3/uL (0.0-0.2); %Basophils 0.2 % (0.0-1.0); %Eosinophils 2.2 % (0.0-10.0); %Lymphocytes 12.8 % (21.0-51.0); %Monocytes 7.2 % (0.0-10.0); %Neutrophils 77.3 % (42.0-75.0); Hematocrit 26.2 % (42.0-52.0); Hemoglobin 8.4 g/dL (14.0-18.0); Mean Corpuscular HGB CONC 32.1 g/dL (32.0-36.0); Mean Corpuscular Volume 90.3 fL (78.0-98.0); Mean Platelet Volume 11.7 fL (7.4-10.4); Platelet Count 277 10x3/uL (130-400); RBC Distribution Width 12.9 % (11.5-14.5)
[2023-10-10 07:17] LABS: ALT (SGPT) 15 U/L (8-55); AST (SGOT) 21 U/L (5-34); Albumin 2.5 g/dL (3.4-4.8); Alkaline Phosphatase 61 U/L (40-110); Anion Gap 12 mmol/L (10-20); BUN (Urea Nitrogen) 13 mg/dL (8.4-25.7); Bilirubin, Total 0.5 mg/dL (0.2-1.2); Calc. Creatinine Clearance 109 mL/min (70-130); Calcium 8.5 mg/dL (7.8-10.44); Carbon Dioxide 25 mmol/L (23-31); Chloride 105 mmol/L (98-107); Estimated GFR 95; Globulin 3.3 g/dL (2.4-3.5); Glucose 126 mg/dL (80-115); Potassium 3.7 mmol/L (3.5-5.1); Protein, Total 5.8 g/dL (5.8-8.1); Sodium 138 mmol/L (136-145)
[2023-10-10] MEDS: LevoFLOXacin 750 MG TAB PO SCH (08:42)
[2023-10-10] MEDS: HYDROcodone/Acetaminophen 5/325 mg Tablet PO PRN (14:05)
[2023-10-11 06:59] LABS: #Basophils Less than 0.03 10x3/uL (0.0-0.2); %Basophils 0.1 % (0.0-1.0); %Eosinophils 1.6 % (0.0-10.0); %Monocytes 7.2 % (0.0-10.0); %Neutrophils 78.7 % (42.0-75.0); Hematocrit 26.3 % (42.0-52.0); Hemoglobin 8.6 g/dL (14.0-18.0); Mean Corpuscular HGB CONC 32.7 g/dL (32.0-36.0); Mean Corpuscular Hemoglobin 30.2 pg (27.0-31.0); Mean Corpuscular Volume 92.3 fL (78.0-98.0); Mean Platelet Volume 11.5 fL (7.4-10.4); Platelet Count 366 10x3/uL (130-400); RBC Distribution Width 12.8 % (11.5-14.5); Red Blood Cell (RBC) Count 2.85 mill/uL (4.70-6.10)
[2023-10-11 07:44] LABS: ALT (SGPT) 20 U/L (8-55); AST (SGOT) 42 U/L (5-34); Albumin 2.8 g/dL (3.4-4.8); Alkaline Phosphatase 114 U/L (40-110); Anion Gap 11 mmol/L (10-20); BUN (Urea Nitrogen) 13 mg/dL (8.4-25.7); Bilirubin, Total 0.5 mg/dL (0.2-1.2); Calc. Creatinine Clearance 112 mL/min (70-130); Calcium 9.1 mg/dL (7.8-10.44); Carbon Dioxide 22 mmol/L (23-31); Chloride 105 mmol/L (98-107); Estimated GFR 97; Globulin 3.6 g/dL (2.4-3.5); Glucose 102 mg/dL (80-115); Protein, Total 6.4 g/dL (5.8-8.1); Sodium 134 mmol/L (136-145)
[2023-10-11] MEDS: tiZANidine HCl 4 MG TAB PO SCH (11:08)
[2023-10-11] MEDS: HYDROcodone/Acetaminophen 5/325 mg Tablet PO SCH ×2 (13:59→22:16)
[2023-10-12] MEDS: HYDROcodone/Acetaminophen 5/325 mg Tablet PO PRN (01:49)
[2023-10-12 07:00] LABS: #Basophils Less than 0.03 10x3/uL (0.0-0.2); %Basophils 0.2 % (0.0-1.0); %Eosinophils 2.8 % (0.0-10.0); %Lymphocytes 19.4 % (21.0-51.0); %Monocytes 7.9 % (0.0-10.0); %Neutrophils 69.3 % (42.0-75.0); Hematocrit 24.2 % (42.0-52.0); Hemoglobin 7.8 g/dL (14.0-18.0); Mean Corpuscular HGB CONC 32.2 g/dL (32.0-36.0); Mean Corpuscular Hemoglobin 29.4 pg (27.0-31.0); Mean Corpuscular Volume 91.3 fL (78.0-98.0); Mean Platelet Volume 11.5 fL (7.4-10.4); Platelet Count 381 10x3/uL (130-400); RBC Distribution Width 12.9 % (11.5-14.5); Red Blood Cell (RBC) Count 2.65 mill/uL (4.70-6.10)
[2023-10-12 07:24] LABS: ALT (SGPT) 14 U/L (8-55); AST (SGOT) 22 U/L (5-34); Albumin 2.5 g/dL (3.4-4.8); Alkaline Phosphatase 84 U/L (40-110); Anion Gap 11 mmol/L (10-20); BUN (Urea Nitrogen) 12 mg/dL (8.4-25.7); Bilirubin, Total 0.3 mg/dL (0.2-1.2); Calc. Creatinine Clearance 107 mL/min (70-130); Calcium 8.7 mg/dL (7.8-10.44); Carbon Dioxide 24 mmol/L (23-31); Chloride 107 mmol/L (98-107); Estimated GFR 95; Globulin 3.4 g/dL (2.4-3.5); Glucose 102 mg/dL (80-115); Potassium 3.8 mmol/L (3.5-5.1); Protein, Total 5.9 g/dL (5.8-8.1); Sodium 138 mmol/L (136-145)
[2023-10-12] MEDS: Lidocaine 4% Patch TD SCH (07:55)
[2023-10-12] MEDS ORDERED: Lidocaine 4% Patch TD SCH (09:00)
[2023-10-12] MEDS: Acetaminophen/Codeine 30-300mg Tablet PO SCH ×2 (11:54→20:08)
[2023-10-12] MEDS: Methocarbamol 500 MG TAB PO PRN (17:06)
[2023-10-12] MEDS ORDERED: Acetaminophen/Codeine 30-300mg Tablet PO ONE (19:42)
[2023-10-12] MEDS: CeleCOXIB 100 MG CAP PO SCH (20:10)
[2023-10-12] MEDS: Transdermal Patch Removal TOP SCH (20:12)
[2023-10-13] MEDS: Acetaminophen/Codeine 30-300mg Tablet PO SCH ×2 (04:13→10:28)
[2023-10-13 06:33] LABS: #Basophils Less than 0.03 10x3/uL (0.0-0.2); %Basophils 0.3 % (0.0-1.0); %Eosinophils 1.7 % (0.0-10.0); %Lymphocytes 18.3 % (21.0-51.0); %Monocytes 10.8 % (0.0-10.0); %Neutrophils 68.7 % (42.0-75.0); Hematocrit 25.9 % (42.0-52.0); Hemoglobin 8.4 g/dL (14.0-18.0); Mean Corpuscular HGB CONC 32.4 g/dL (32.0-36.0); Mean Corpuscular Hemoglobin 28.8 pg (27.0-31.0); Mean Corpuscular Volume 88.7 fL (78.0-98.0); Mean Platelet Volume 11.3 fL (7.4-10.4); Platelet Count 429 10x3/uL (130-400); RBC Distribution Width 12.7 % (11.5-14.5); Red Blood Cell (RBC) Count 2.92 mill/uL (4.70-6.10)
[2023-10-13 06:50] LABS: ALT (SGPT) 14 U/L (8-55); AST (SGOT) 19 U/L (5-34); Albumin 2.8 g/dL (3.4-4.8); Alkaline Phosphatase 88 U/L (40-110); Anion Gap 12 mmol/L (10-20); BUN (Urea Nitrogen) 10 mg/dL (8.4-25.7); Bilirubin, Total 0.4 mg/dL (0.2-1.2); Calc. Creatinine Clearance 101 mL/min (70-130); Calcium 9.2 mg/dL (7.8-10.44); Carbon Dioxide 23 mmol/L (23-31); Chloride 107 mmol/L (98-107); Estimated GFR 94; Globulin 3.7 g/dL (2.4-3.5); Glucose 139 mg/dL (80-115); Potassium 3.9 mmol/L (3.5-5.1); Protein, Total 6.5 g/dL (5.8-8.1); Sodium 138 mmol/L (136-145)
[2023-10-13] MEDS ORDERED: oxyCODONE 5 MG TAB PO PRN (11:00)
[2023-10-13] MEDS ORDERED: Acetaminophen/Codeine 30-300mg Tablet PO SCH (12:00)
[2023-10-13 12:36] VITALS: TEMP 98.1
[2023-10-13] MEDS: oxyCODONE 5 MG TAB PO PRN (13:40)
[2023-10-13 14:59] VITALS: BP 130/68
[2023-10-13 15:01] VITALS: BMI 27.8
[2023-10-13] MEDS: oxyCODONE 5 MG TAB PO SCH (17:48)
== END 2023-10-13 18:03 | DRG 862 ==
LOC: ERS 16:53 → 2SE 19:30 → CCU 09-29 10:02 → T4-A 10-08 17:48
PROVIDERS: ADMIT Emergency Medicine; ATTEND Emergency Medicine
PROC: 0BH17EZ Insertion of Endotracheal Airway into Trachea, Via Natural or Artificial Opening (ICD-10-PCS; 2023-09-29)
PROC: 0BH17EZ Insertion of Endotracheal Airway into Trachea, Via Natural or Artificial Opening (ICD-10-PCS; 2023-09-29)
PROC: 5A1955Z Respiratory Ventilation, Greater than 96 Consecutive Hours (ICD-10-PCS; 2023-09-29)
PROC: 0J9700Z Drainage of Back Subcutaneous Tissue and Fascia with Drainage Device, Open Approach (ICD-10-PCS; principal; 2023-10-01)
DX: T81.41XA Infection following a procedure, superficial incisional surgical site, initial encounter (principal); A41.53 Sepsis due to Serratia; J96.01 Acute respiratory failure with hypoxia; G93.41 Metabolic encephalopathy; R65.20 Severe sepsis without septic shock; D62 Acute posthemorrhagic anemia; N39.0 Urinary tract infection, site not specified; N17.9 Acute kidney failure, unspecified; T81.31XA Disruption of external operation (surgical) wound, not elsewhere classified, initial encounter; L76.34 Postprocedural seroma of skin and subcutaneous tissue following other procedure; T81.44XA Sepsis following a procedure, initial encounter; K59.03 Drug induced constipation; E78.5 Hyperlipidemia, unspecified; I10 Essential (primary) hypertension; E11.65 Type 2 diabetes mellitus with hyperglycemia; I25.10 Atherosclerotic heart disease of native coronary artery without angina pectoris; K21.9 Gastro-esophageal reflux disease without esophagitis; B96.20 Unspecified Escherichia coli [E. coli] as the cause of diseases classified elsewhere; E87.6 Hypokalemia; Y83.8 Other surgical procedures as the cause of abnormal reaction of the patient, or of later complication, without mention of misadventure at the time of the procedure; N40.0 Benign prostatic hyperplasia without lower urinary tract symptoms; Z88.5 Allergy status to narcotic agent; Z79.82 Long term (current) use of aspirin; Z90.79 Acquired absence of other genital organ(s); Z88.8 Allergy status to other drugs, medicaments and biological substances; Z79.84 Long term (current) use of oral hypoglycemic drugs; Z79.899 Other long term (current) drug therapy; Z95.5 Presence of coronary angioplasty implant and graft; Z98.1 Arthrodesis status; R19.7 Diarrhea, unspecified; M54.50 Low back pain, unspecified; G89.18 Other acute postprocedural pain; E11.9 Type 2 diabetes mellitus without complications
CPT/HCPCS: 36415; 36416; 36430; 36600; 70450; 70551; 70553; 71045; 71260; 72125; 72131; 72158; 74018; 74177; 76377; 80053; 80061; 80202; 80306; 80307; 81001; 82140; 82805; 83036; 83605; 83690; 83735; 84100; 84145; 84443; 84484; 85025; 86141; 86850; 86900; 86901; 87040; 87070; 87077; 87081; 87086; 87149; 87186; 87205; 87324; 87449; 87633; 87798; 93005; 93306; 93970; 94002; 94003; 96361; 96374; 96375; C9113; J0692; J1100; J1650; J1815; J1885; J1940; J2060; J2185; J2250; J2270; J2310; J2405; J2704; J3010; J3370; J3475; J3490; J7050; P9035; P9047; Q9967; U0002